=== PATIENT | female | born 1955 | race Caucasian/White ===

== ENCOUNTER 2020-05-17 14:45 | Inpatient (IN) | payer MEDICARE, MEDICAID ==
[~2020-05-17] VITALS: Ht 162.6 cm; Wt 86.6 kg
[2020-05-17 17:42] VITALS: BP 148/96
--- NOTE | 2020-05-17 17:45 | HPEPDOC ---
General Date of Admission 05/17/20 Date of Service: May 17, 2020 Chief Complaint The patient is a 64-year-old female admitted with a reason for visit of Kidney Stone. Source: Patient Exam Limitations: No limitations Timing/Duration: Day(s) Severity: Moderate History of Present Illness Patient is 64 years old female with past medical history of hyperlipidemia, nephrolithiasis, hypertension presented to the hospital with left flank pain. Patient stated that yesterday she developed left flank pain with radiation to the left lower abdominal quadrant associated with hematuria. Patient stated that she had nausea. Also patient had 1 episode of renal colic 15 years ago, stent was placed. In [facility] CT was done and showed 11 millimeters stone within the mid distal aspect of the left ureter, left-sided ureterohydronephro sis. There are nonobstructing stones within both kidneys. CBC showed no leukocytosis, hemoglobin 11.5. BMP showed creatinine 1. Past Medical History Medical History Hypertension, hyperlipidemia, diverticulitis, nephrolithiasis Surgical History Hysterectomy Family History I personally reviewed the history and found not pertinent Social History * Smoker: Denies Alcohol: Denies Drugs: denies A-FIB/CHADSVASC A-FIB History Current/History of A-Fib/PAF?: No Current PO Anticoag Therapy: No Review of Systems Constitutional: Denies: Chills, Fever Eyes: Denies: Pain ENT: Denies: Head Aches Skin: Denies: Rash Pulmonary: Denies: Dyspnea Cardiovascular: Denies: Chest Pain Gastrointestinal: Denies: Nausea, Vomiting Genitourinary: Reports: Dysuria, Frequency Hematologic: Denies: Bruising Endocrine: Denies: Polydipsia Musculoskeletal: Reports: Back Pain; Denies: Neck Pain Neurological: Denies: Weakness Psych: Reports: Mood Normal Physical Examination General Exam: Positive: Alert, Cooperative Eye Exam: Positive: PERRLA ENT Exam: Positive: Atraumatic Neck Exam: Positive: Supple; Negative: JVD Chest Exam: Positive: Clear to auscultation Heart Exam: Positive: Rate Normal Telemetry: Positive: No significant arrhythmia Abdomen Exam: Positive: Normal bowel sounds Extremity Exam: Negative: Clubbing Skin Exam: Positive: Nl turgor and temperature Psych Exam: Positive: Mental status NL Assessment/Plan Patient is 64 years old female with past medical history of hyperlipidemia, nephrolithiasis, hypertension presented to the hospital with left flank pain. Patient stated that yesterday she developed left flank pain with radiation to the left lower abdominal quadrant associated with hematuria. Patient stated that she had nausea. Also patient had 1 episode of renal colic 15 years ago, stent was placed. In [facility] CT was done and showed 11 millimeters stone within the mid distal aspect of the left ureter, left-sided ureterohydronephrosis. There are nonobstructing stones within both kidneys. CBC showed no leukocytosis, hemoglobin 11.5. BMP showed creatinine 1. Problems (1) Nephrolithiasis Status: Acute Problem Text: Patient was found to have 11 mm stone in left ureter with hydronephrosis Most likely patient will need stent placement Appreciate/agree with neurologist consult Pain management (2) Hypertension Status: Chronic Problem Text: Will continue home meds Plan / VTE VTE Prophylaxis Ordered?: Yes LUNA OLSON DO May 17, 2020 17:45
[2020-05-17] MEDS ORDERED: OXYC1TAB23 PO (18:11)
[2020-05-17] MEDS ORDERED: ATOR1TAB19 PO (18:11)
[2020-05-17] MEDS ORDERED: ASPI-161 PO (18:12)
[2020-05-17] MEDS: NS 1,000 ML IV SCH ×2 (18:15→20:46)
[2020-05-17 18:22] LABS: BASO % 0.8 % (0.0-1.0); EOS % 0.6 % (0.0-3.0); HEMATOCRIT 35.7 % (36.0-47.0); HEMOGLOBIN 11.1 g/dl (12.0-15.5); LYMPH # 0.8 10^3/uL (1.5-5.0); LYMPH % 14.7 % (24.0-44.0); MEAN CORPUSCULAR HEMOGLOBIN 27.9 pg (27.0-33.0); MEAN CORPUSCULAR HGB CONC 31.1 g/dl (32.0-36.5); MEAN CORPUSCULAR VOLUME 89.7 fl (80.0-96.0); MONO # 0.3 10^3/uL (0.0-0.8); MONO % 6.4 % (0.0-5.0); NEUTROPHILS # 4.1 10^3/uL (1.5-8.5); NEUTROPHILS % 77.3 % (36.0-66.0); PLATELET COUNT, AUTOMATED 277 10^3/uL (150-450); RED BLOOD COUNT 3.98 10^6/uL (4.00-5.40); WHITE BLOOD COUNT 5.3 10^3/uL (4.0-10.0)
[2020-05-17 18:36] LABS: CALCIUM LEVEL 8.9 MG/DL (8.8-10.2)
[2020-05-17] MEDS: CIPROFLOXACIN 250MG TAB PO SCH (18:41)
[2020-05-17 18:46] LABS: ALBUMIN 3.4 GM/DL (3.2-5.2); ALT/SGPT 19 U/L (12-78); BILIRUBIN,TOTAL 0.4 MG/DL (0.2-1.0); BLOOD UREA NITROGEN 16 MG/DL (7-18); CALCIUM LEVEL 8.9 MG/DL (8.8-10.2); CARBON DIOXIDE LEVEL 25 MEQ/L (21-32); CHLORIDE LEVEL 107 MEQ/L (98-107); CREATININE FOR GFR 0.82 MG/DL (0.55-1.30); GLOMERULAR FILTRATION RATE > 60.0 (>45); GLUCOSE, FASTING 100 MG/DL (70-100); SODIUM LEVEL 140 MEQ/L (136-145); TOTAL PROTEIN 6.3 GM/DL (6.4-8.2)
[2020-05-17 18:51] LABS: PTH INTACT 35.2 PG/ML (18.5-88.0)
--- NOTE | 2020-05-17 19:02 | SMCUROLCON ---
Urology Consultation General Date of Consultation 05/17/20 Reason For Consultation This patient is seen for Kidney Stone. History of Present Illness This is a 64 y/o F w/ a PMH significant for kidney stones and HL, transferred from [facility] this evening after presenting there w/ severe L lower abdominal pain yesterday evening. She was seen there on 05/11 w/ similar symptoms and was found to have an obstructing 11m distal left ureteral stone. Her pain got better and she was sent home. She notes that the pain recurred yesterday and was not controlled w/ pain medication. She had nausea but no vomiting. Denies dysuria, but has had some hematuria. No fevers or chills. Due to the pain and second trip to the ER in a few days, she was transferred over for treatment for her stone. At this time she has minimal to no pain. Her nausea has resolved. Past Medical History Medical History see HPI Surgical Hstory hysterectomy kidney stone surgery several years ago Medications Current Medications Current Medications Medications (Trade) Dose Ordered Sig/Lucia Route PRN Reason Start Time Stop Time Status Last Admin Dose Admin Acetaminophen (Tylenol Tab) 650 mg Q4H PRN PO PAIN OR FEVER 05/17/20 17:30 Ciprofloxacin (Cipro) 250 mg BID@06,18 PO 05/17/20 18:00 05/17/20 18:41 Enoxaparin Sodium (Lovenox) 40 mg DAILY SC 05/18/20 09:00 Home Med (Med Rec Complete!) ASDIRECTED XX 05/17/20 18:15 05/17/20 18:15 DC Ketorolac Tromethamine (ToRADol) 15 mg Q6H PRN IV PAIN 05/17/20 17:30 05/22/20 17:29 Sodium Chloride 1,000 ml @ 100 mls/hr Q10H IV 05/17/20 18:00 05/17/20 18:15 Allergies Allergies: Coded Allergies: No Known Allergies (Unverified , 05/17/20) Review of Systems Constitutional: Denies: Fever, Chills, Sweats, Weakness, Malaise Skin: Denies: Rash, Lesions, Breakdown, Nail Changes Pulmonary: Denies: Dyspnea, Cough Cardiovascular: Denies Chest Pain, Denies Palpitations Gastrointestinal: Reports: Nausea (resolved), Abdominal Pain (LLQ); Denies: Vomiting, Diarrhea, Constipation, Melena, Hematochezia, Other Symptoms Genitourinary: Reports: Hematuria; Denies: Dysuria, Frequency, Incontinence Musculoskeletal: Denies: Neck Pain, Back Pain Neurological: Denies: Weakness, Numbness, Incoordination, Change in Speech Psych: Reports: Mood Normal; Denies: Anxiety, Depression Physical Examination General Exam: Alert, Cooperative, No Acute Distress Chest Exam: Clear to auscultation Heart Exam: Rate Normal Abdomen Exam: Soft; No: Tenderness Skin Exam: Nl turgor and temperature; No: Rash, Breakdown Neuro Exam: Normal Speech Psych Exam: Mental status NL, Mood NL Vital Signs/I&O Vital Signs Date Time Temp Pulse Resp B/P (MAP) Pulse Ox O2 Delivery O2 Flow Rate FiO2 05/17/20 17:42 148/96 (113) 05/17/20 17:10 97.1 80 20 98 Laboratory Data 24H Labs Laboratory Tests 2 05/17/20 17:52: Immature Granulocyte % (Auto) 0.2, Neutrophils (%) (Auto) 77.3H, Lymphocytes (%) (Auto) 14.7L, Monocytes (%) (Auto) 6.4H, Eosinophils (%) (Auto) 0.6, Basophils (%) (Auto) 0.8, Neutrophils # (Auto) 4.1, Lymphocytes # (Auto) 0.8L, Monocytes # (Auto) 0.3, Eosinophils # (Auto) 0.0, Basophils # (Auto) 0.0, Nucleated Red Blood Cells % (auto) 0.0, Anion Gap 8, Glomerular Filtration Rate > 60.0, Calcium Level 8.9, Total Bilirubin 0.4, Aspartate Amino Transf (AST/SGOT) 12, Alanine Aminotransferase (ALT/SGPT) 19, Alkaline Phosphatase 75, Total Protein 6.3L, Albumin 3.4, Albumin/Globulin Ratio 1.2 CBC/BMP Laboratory Tests 05/17/20 17:52 Assessment This is a 64 y/o F transferred over from [facility] for recurrent renal colic 2/2 an obstructing 11mm distal L ureteral stone. Her pain is better controlled at this time. UA at [facility] was notable for multiple RBCs, a small amount of WBCs, but several bacteria. It was negative for nitrites. The patient we be taken to surgery tomorrow afternoon w/ Dr. Woods for either cysto w/ L ureteral stent placement or L ureteroscopy w/ laser lithotripsy. Plan - patient admitted to hospitalist service for pain control - COVID done at [facility] today and was negative - ok to eat tonight - NPO after midnight for surgery tomorrow GATITO RICE MD May 17, 2020 19:02
[2020-05-17 19:50] LABS: APPEARANCE, URINE CLEAR (CLEAR); BACTERIA, URINE AUTO NEGATIVE (NEGATIVE); BILIRUBIN, URINE AUTO NEGATIVE (NEGATIVE); BLOOD, URINE BLOOD NEGATIVE (NEGATIVE); COLOR, URINE STRAW (YELLOW); GLUCOSE, URINE (UA) AUTO NEGATIVE (NEGATIVE); KETONE, URINE AUTO 1+ mg/dL (NEGATIVE); LEUKOCYTE ESTERASE, URINE AUTO TRACE (NEGATIVE); MUCUS, URINE SMALL (NEGATIVE); NITRITE, URINE AUTO NEGATIVE (NEGATIVE); PROTEIN, URINE AUTO NEGATIVE (NEGATIVE); RBC, URINE AUTO 2 /HPF (0-3); SPECIFIC GRAVITY URINE AUTO 1.011 (1.002-1.035); SQUAMOUS EPITHELIAL CELL UR AU 0 /HPF (0-6); UROBILINOGEN, URINE AUTO 0.2 mg/dL (0.0-2.0); WBC, URINE AUTO 6 /HPF (0-3)
[2020-05-17] MEDS: KETOROLAC 30 MG/ML 1ML VIAL IV PRN (20:46)
[2020-05-17 22:00] VITALS: BP 138/90
[2020-05-18] VITALS (8 sets, daily range): BP systolic 116–166; BP diastolic 70–94
[2020-05-18] MEDS: PHENAZOPYRIDINE 100 MG TAB PO SCH ×4 (00:56→18:57)
[2020-05-18] MEDS: KETOROLAC 30 MG/ML 1ML VIAL IV PRN ×3 (02:25→22:59)
[2020-05-18] MEDS: CIPROFLOXACIN 250MG TAB PO SCH ×2 (06:19→18:38)
[2020-05-18 06:25] LABS: HEMATOCRIT 35.1 % (36.0-47.0); MEAN CORPUSCULAR HGB CONC 31.3 g/dl (32.0-36.5); MEAN CORPUSCULAR VOLUME 89.3 fl (80.0-96.0); PLATELET COUNT, AUTOMATED 274 10^3/uL (150-450); RED BLOOD COUNT 3.93 10^6/uL (4.00-5.40)
[2020-05-18 06:45] LABS: ALBUMIN 3.1 GM/DL (3.2-5.2); ALT/SGPT 19 U/L (12-78); BILIRUBIN,TOTAL 0.4 MG/DL (0.2-1.0); BLOOD UREA NITROGEN 13 MG/DL (7-18); CALCIUM LEVEL 8.4 MG/DL (8.8-10.2); CARBON DIOXIDE LEVEL 26 MEQ/L (21-32); CHLORIDE LEVEL 110 MEQ/L (98-107); CREATININE FOR GFR 0.78 MG/DL (0.55-1.30); GLOMERULAR FILTRATION RATE > 60.0 (>45); GLUCOSE, FASTING 89 MG/DL (70-100); MAGNESIUM LEVEL 1.9 MG/DL (1.8-2.4); POTASSIUM SERUM 3.8 MEQ/L (3.5-5.1); SODIUM LEVEL 144 MEQ/L (136-145); TOTAL PROTEIN 6.6 GM/DL (6.4-8.2)
[2020-05-18] MEDS: ENOXAPARIN 40MG/0.4ML SYRINGE (J1650 PER 10MG) SC SCH (07:26)
[2020-05-18] MEDS: NS 1,000 ML IV SCH ×2 (13:55→21:15)
[2020-05-18] MEDS ORDERED: MORPHINE 2 MG/ML 1ML VIAL (J2270) IV ONE (14:30)
[2020-05-18] MEDS ORDERED: MORPHINE 2 MG/ML 1ML VIAL (J2270) IV PRN (14:30)
[2020-05-18] MEDS ORDERED: CONRAY-60 60% 50ML VIAL (Q9961) As Ordered ONE (15:53)
[2020-05-18] MEDS ORDERED: propofoL 200 MG/20 ML VIAL As Ordered ONE (16:34)
[2020-05-18] MEDS ORDERED: LIDOCAINE 2% 100MG/5ML SDV (FOR ANES.) As Ordered ONE (16:34)
[2020-05-18] MEDS ORDERED: MIDAZOLAM INJ 2MG/2ML VIAL (J2250 PER 1MG) As Ordered ONE (16:34)
[2020-05-18] MEDS ORDERED: fentaNYL 100 MCG/2 ML INJECTION (J3010) As Ordered ONE ×3 (16:34→19:02)
--- NOTE | 2020-05-18 17:03 | IPNPDOC ---
Text Note Date of Service The patient was seen on 05/18/20. NOTE Subjective: No any acute events overnight. Patient denies fever, chills, nausea, vomiting, diarrhea or dysuria Objective: GENERAL APPEARANCE: NAD HEENT: no scleral icterus, no JVD, EOMI CARDIOVASCULAR: S1S2 LUNGS: CTA ABDOMEN: soft & not tender w palpitation MUSCULOSKELETAL: no cyanosis, no swelling INTEGUMENT: no generalized pallor NEUROLOGICAL: cranial nerve function from 2-12 intact intact, follows commands, speech not dysarthric Assessment/Plan Patient is 64 years old female with past medical history of hyperlipidemia, nephrolithiasis, hypertension presented to the hospital with left flank pain. Patient stated that yesterday she developed left flank pain with radiation to the left lower abdominal quadrant associated with hematuria. Patient stated that she had nausea. Also patient had 1 episode of renal colic 15 years ago, stent was placed. In [facility] CT was done and showed 11 millimeters stone within the mid distal aspect of the left ureter, left-sided ureterohydronephrosis. There are nonobstructing stones within both kidneys. CBC showed no leukocytosis, hemoglobin 11.5. BMP showed creatinine 1. Problems (1) Nephrolithiasis Patient was found to have 11 mm stone in left ureter with hydronephrosis Most likely patient will need stent placement Plan: stent placement by urology team today Pain management (2) Hypertension continue home meds VS,Fishbone, I+O VS, Fishbone, I+O Laboratory Tests 05/17/20 17:52 05/18/20 05:51 Vital Signs Date Time Temp Pulse Resp B/P (MAP) Pulse Ox O2 Delivery O2 Flow Rate FiO2 05/18/20 14:45 16 Room Air 05/18/20 14:00 97.4 72 137/86 (103) 95 I&O- Last 24 Hours up to 6 AM 05/18/20 06:00 Intake Total 1860 ml Output Total 1950 ml Balance -90 ml LUNA OLSON DO May 18, 2020 17:03
[2020-05-18] MEDS ORDERED: dexameTHASONE 4 MG/ML 1ML VIAL (J1100 PER 1MG) As Ordered ONE ×2 (17:13→17:14)
[2020-05-18] MEDS ORDERED: ONDANSETRON 4MG/2ML VIAL As Ordered ONE ×2 (17:13→18:37)
[2020-05-18] MEDS ORDERED: KETOROLAC 60MG 2ML VIAL As Ordered ONE (17:13)
[2020-05-18] MEDS ORDERED: FLUORESCEIN 10% (100MG/ML) 5 ML VIAL As Ordered ONE (17:15)
--- NOTE | 2020-05-18 18:33 | ROOPDOC ---
[facility] Report Of Operation Report of Operation DATE OF PROCEDURE: 05/18/20 PREPROCEDURE DIAGNOSES: 11 mm distal left ureteral stone POSTPROCEDURE DIAGNOSES: Same PROCEDURE: Cystoscopy, left ureteroscopy, laser lithotripsy, and placement of 6 Tamazight universal stent SURGEON: Mercedez Peraza MD [employer] ATTENDANT: None ANESTHESIA: General ESTIMATED BLOOD LOSS: Approximately 5 mL. COMPLICATIONS: None REMARKS: Very large stone PROCEDURE NOTE: The patient was transferred from [facility] with complaints of severe left flank pain found to have an 11 millimeter distal left ureteral calculus. The patient had been seen back in January and the stone was much smaller at that time in the same place. After discussing all different options, alternatives, risks, benefits it was decided to bring her to the operating room for laser lithotripsy and stent placement. DESCRIPTION OF PROCEDURE: The patient was brought into the operating room and she had sequential compression devices placed and had been on Cipro preoperatively. General anesthesia was induced. She was placed in the lithotomy position and careful attention was paid that her pressure points were well- padded and protected. She was prepped and draped in usual fashion. A 21 Tamazight cystoscope was inserted and the urethra was noted to be normal without any lesions or strictures. Upon entering the bladder there was significant gross hematuria and irritation throughout the bladder. It was difficult to see the ureteral orifices so fluorescein was given. When the left ureteral orifice was seen and a guidewire was placed under fluoroscopy and then a second wire was placed. One wire was left as a safety wire. A rigid ureteroscope was placed over the second wire and the stone was easily visualized. The stone was then treated with laser lithotripsy until multiple small fragments were formed. Because there was so much ureteral irritation and because of where this was it was decided not to basket any of the fragments. At this point a 6 Tamazight double-J ureteral stent was placed with a good curl seen in the left renal pelvis by fluoroscopy. The patient tolerated the procedure well and was returned to the recovery room in stable condition. She will need to come to the office for cystoscopy and stent removal in several weeks. MERCEDEZ PERAZA MD May 18, 2020 18:33
[2020-05-18] MEDS ORDERED: oxyCODONE 5MG TAB As Ordered ONE (18:37)
[2020-05-18] MEDS ORDERED: PHENAZOPYRIDINE 100 MG TAB As Ordered ONE (18:56)
[2020-05-18] MEDS ORDERED: fentaNYL 100 MCG/2 ML INJECTION (J3010) IV PRN ×2 (19:00→20:30)
[2020-05-18] MEDS ORDERED: ONDANSETRON 4MG/2ML VIAL IV PRN ×2 (19:00→20:45)
[2020-05-18] MEDS ORDERED: oxyCODONE 5MG TAB PO PRN ×2 (19:00→20:30)
[2020-05-18] MEDS ORDERED: LR 1,000 ML IV SCH ×2 (19:00→20:30)
[2020-05-18] MEDS ORDERED: DOCUSATE SODIUM 100MG CAPSULE PO ONE (22:30)
[2020-05-18] MEDS ORDERED: PHENAZOPYRIDINE 100 MG TAB PO ONE (23:30)
[2020-05-19 00:40] VITALS: BP 112/61
[2020-05-19] MEDS: ACETAMINOPHEN TAB 650MG DOSE (2X325MG) PO PRN ×2 (03:43→08:34)
[2020-05-19 06:00] VITALS: BP 112/62
[2020-05-19] MEDS: NS 1,000 ML IV SCH (06:30)
[2020-05-19] MEDS: CIPROFLOXACIN 250MG TAB PO SCH (06:31)
[2020-05-19] MEDS: KETOROLAC 30 MG/ML 1ML VIAL IV PRN (06:31)
[2020-05-19 07:00] LABS: HEMATOCRIT 35.2 % (36.0-47.0); HEMOGLOBIN 11.1 g/dl (12.0-15.5); MEAN CORPUSCULAR HEMOGLOBIN 28.3 pg (27.0-33.0); MEAN CORPUSCULAR HGB CONC 31.5 g/dl (32.0-36.5); MEAN CORPUSCULAR VOLUME 89.8 fl (80.0-96.0); PLATELET COUNT, AUTOMATED 272 10^3/uL (150-450); RED BLOOD COUNT 3.92 10^6/uL (4.00-5.40); WHITE BLOOD COUNT 10.7 10^3/uL (4.0-10.0)
[2020-05-19 07:23] LABS: CALCIUM LEVEL 8.7 MG/DL (8.8-10.2); CREATININE FOR GFR 1.05 MG/DL (0.55-1.30); POTASSIUM SERUM 3.9 MEQ/L (3.5-5.1)
[2020-05-19] MEDS: ENOXAPARIN 40MG/0.4ML SYRINGE (J1650 PER 10MG) SC SCH (08:34)
[2020-05-19] MEDS: PHENAZOPYRIDINE 100 MG TAB PO SCH (08:34)
[2020-05-19 10:14] VITALS: BP 108/67
[2020-05-19] MEDS ORDERED: traMADol 50 MG TAB PO ONE (10:15)
[2020-05-19] MEDS ORDERED: [UNRECOGNIZED DRUG - CODE] PO (11:04)
[2020-05-19] MEDS ORDERED: CEPH250T PO (11:55)
--- NOTE | 2020-05-19 14:23 | DS.PDOC ---
Discharge Summary General Date of Admission May 17, 2020 at 16:56 Date of Discharge 05/19/20 Discharge Summary PROCEDURES PERFORMED DURING STAY: Left ureteroscopy, stent placement ADMITTING DIAGNOSES: Nephrolithiasis Hypertension DISCHARGE DIAGNOSES: Nephrolithiasis Hypertension COMPLICATIONS/CHIEF COMPLAINT: Kidney Stone. HISTORY OF PRESENT ILLNESS: Patient is 64 years old female with past medical history of hyperlipidemia, nephrolithiasis, hypertension presented to the hospital with left flank pain. Patient stated that yesterday she developed left flank pain with radiation to the left lower abdominal quadrant associated with hematuria. Patient stated that she had nausea. Also patient had 1 episode of renal colic 15 years ago, stent was placed. In [facility] CT was done and showed 11 millimeters stone within the mid distal aspect of the left ureter, left-sided ureterohydronephrosis. There are nonobstructing stones within both kidneys. CBC showed no leukocytosis, hemoglobin 11.5. BMP showed creatinine 1. HOSPITAL COURSE: During hospital stay following issue addressed (1) Nephrolithiasis Patient was found to have 11 mm stone in left ureter with hydronephrosis stent was placed by urology team yesterday, stone was removed Pain management (2) Hypertension continue home meds DISCHARGE MEDICATIONS: Please see below. ALLERGIES: Please see below. PHYSICAL EXAMINATION ON DISCHARGE: VITAL SIGNS: Please see below. GENERAL APPEARANCE: NAD HEENT: no scleral icterus, no JVD, EOMI CARDIOVASCULAR: S1S2 LUNGS: CTA ABDOMEN: soft & not tender w palpitation MUSCULOSKELETAL: no cyanosis, no swelling INTEGUMENT: no generalized pallor NEUROLOGICAL: cranial nerve function from 2-12 intact intact, follows commands, speech not dysarthric LABORATORY DATA: Please see below. Procedure: PREPROCEDURE DIAGNOSES: 11 mm distal left ureteral stone POSTPROCEDURE DIAGNOSES: Same PROCEDURE: Cystoscopy, left ureteroscopy, laser lithotripsy, and placement of 6 Latvian universal stent SURGEON: Mercedez Woods MD RECORD SYSTEMS ANALYST: None ANESTHESIA: General ESTIMATED BLOOD LOSS: Approximately 5 mL. COMPLICATIONS: None REMARKS: Very large stone PROCEDURE NOTE: The patient was transferred from [facility] with complaints of severe left flank pain found to have an 11 millimeter distal left ureteral calculus. The patient had been seen back in January and the stone was much smaller at that time in the same place. After discussing all different options, alternatives, risks, benefits it was decided to bring her to the operating room for laser lithotripsy and stent placement. DESCRIPTION OF PROCEDURE: The patient was brought into the operating room and s he had sequential compression devices placed and had been on Cipro preoperatively. General anesthesia was induced. She was placed in the lithotomy position and careful attention was paid that her pressure points were well- padded and protected. She was prepped and draped in usual fashion. A 21 Latvian cystoscope was inserted and the urethra was noted to be normal without any lesions or strictures. Upon entering the bladder there was significant gross hematuria and irritation throughout the bladder. It was difficult to see the ureteral orifices so fluorescein was given. When the left ureteral orifice was seen and a guidewire was placed under fluoroscopy and then a second wire was placed. One wire was left as a safety wire. A rigid ureteroscope was placed over the second wire and the stone was easily visualized. The stone was then treated with laser lithotripsy until multiple small fragments were formed. Because there was so much ureteral irritation and because of where this was it was de cided not to basket any of the fragments. At this point a 6 Latvian double-J ureteral stent was placed with a good curl seen in the left renal pelvis by fluoroscopy. The patient tolerated the procedure well and was returned to the recovery room in stable condition. She will need to come to the office for cystoscopy and stent removal in several weeks. PROGNOSIS: Fair ACTIVITY: [As tolerated]. DIET: Cardiac DISPOSITION: 01 Home, Self-Care. ITEMS TO FOLLOWUP ON ON OUTPATIENT: Follow-up with urologist DISCHARGE CONDITION: [Stable]. TIME SPENT ON DISCHARGE: Greater than minutes. Vital Signs/I&Os Vital Signs Date Time Temp Pulse Resp B/P (MAP) Pulse Ox O2 Delivery O2 Flow Rate FiO2 05/19/20 10:46 17 Room Air 05/19/20 10:14 97.9 100 108/67 (81) 93 05/18/20 18:33 3 I&O- Last 24 Hours up to 6 AM 05/19/20 06:00 Intake Total 2655 ml Output Total 2450 ml Balance 205 ml Laboratory Data Labs 24H Laboratory Tests 2 05/19/20 06:32: Nucleated Red Blood Cells % (auto) 0.0, Anion Gap 10, Glomerular Filtration Rate 56.0, Calcium Level 8.7L CBC/BMP Laboratory Tests 05/19/20 06:32 Microbiology Microbiology 05/17/20 Urine Culture - Final, Complete Escherichia Coli Discharge Medications Scheduled Aspirin (Aspirin EC) 81 Mg Tablet.dr, 81 MG PO DAILY, (Reported) Atorvastatin Calcium (Atorvastatin Calcium) 10 Mg Tablet, 10 MG PO DAILY, (Reported) Cephalexin (Cephalexin) 250 Mg Tablet, 250 MG PO QID Scheduled PRN Oxycodone HCl/Acetaminophen (Oxycodone-Acetaminophen 5-325) 1 Each Tablet, 1 TAB PO TID PRN for PAIN, (Reported) Allergies Coded Allergies: No Known Allergies (Unverified , 05/17/20) LUNA OLSON DO May 19, 2020 14:23
[2020-05-20] MEDS ORDERED: CEPH250T PO (06:42)
[2020-05-20] MEDS ORDERED: CIPR-249 PO (06:55)
== END 2020-05-19 12:09 | disposition home or self-care (01) | DRG 661 ==
LOC: M MSPAV 16:56
PROVIDERS: ADMIT Internal Medicine; ATTEND Internal Medicine
PROC: 0T778DZ Dilation of Left Ureter with Intraluminal Device, Via Natural or Artificial Opening Endoscopic (ICD-10-PCS; principal; 2020-05-18 16:00)
DX: N13.2 Hydronephrosis with renal and ureteral calculous obstruction (principal); I10 Essential (primary) hypertension; E78.5 Hyperlipidemia, unspecified; Z79.82 Long term (current) use of aspirin; Z79.899 Other long term (current) drug therapy; K57.30 Diverticulosis of large intestine without perforation or abscess without bleeding

== ENCOUNTER 2020-05-20 05:05 | Inpatient (IN) | payer MEDICARE, MEDICAID ==
[~2020-05-20] VITALS: Ht 162.6 cm; Wt 88.9 kg
[~2020-05-20 05:05] MED LIST: ASPI-161 PO; ATOR1TAB19 PO; CEPH250T PO; OXYC1TAB23 PO; [UNRECOGNIZED DRUG - CODE] PO
[2020-05-20 06:22] VITALS: BP 156/71
[2020-05-20] MEDS ORDERED: CEPH250T PO (06:42)
[2020-05-20] MEDS ORDERED: NS 1,000 ML IV SCH (06:45)
[2020-05-20] MEDS ORDERED: ONDANSETRON 4MG/2ML VIAL IV PRN (06:45)
[2020-05-20] MEDS ORDERED: MORPHINE 2 MG/ML 1ML VIAL (J2270) IV PRN (06:45)
[2020-05-20] MEDS ORDERED: CIPR-249 PO (06:55)
[2020-05-20] MEDS: KCL 20MEQ in NS 1000ML 1,000 ML IV SCH ×3 (08:41→21:28)
[2020-05-20] MEDS: ACETAMINOPHEN TAB 650MG DOSE (2X325MG) PO PRN (08:42)
[2020-05-20] MEDS: ENOXAPARIN 40MG/0.4ML SYRINGE (J1650 PER 10MG) SC SCH (08:42)
[2020-05-20 09:29] LABS: HEMATOCRIT 32.9 % (36.0-47.0); HEMOGLOBIN 10.2 g/dl (12.0-15.5); MEAN CORPUSCULAR HEMOGLOBIN 27.9 pg (27.0-33.0); MEAN CORPUSCULAR VOLUME 89.9 fl (80.0-96.0); PLATELET COUNT, AUTOMATED 272 10^3/uL (150-450); RED BLOOD COUNT 3.66 10^6/uL (4.00-5.40); WHITE BLOOD COUNT 11.1 10^3/uL (4.0-10.0)
[2020-05-20 10:00] VITALS: BP 108/51
[2020-05-20 10:08] LABS: ALBUMIN 2.8 GM/DL (3.2-5.2); ALT/SGPT 17 U/L (12-78); BILIRUBIN,TOTAL 0.6 MG/DL (0.2-1.0); BLOOD UREA NITROGEN 8 MG/DL (7-18); CALCIUM LEVEL 8.3 MG/DL (8.8-10.2); CARBON DIOXIDE LEVEL 22 MEQ/L (21-32); CHLORIDE LEVEL 106 MEQ/L (98-107); CREATININE FOR GFR 0.74 MG/DL (0.55-1.30); GLOMERULAR FILTRATION RATE > 60.0 (>45); GLUCOSE, FASTING 110 MG/DL (70-100); POTASSIUM SERUM 3.8 MEQ/L (3.5-5.1); SODIUM LEVEL 138 MEQ/L (136-145)
[2020-05-20] MEDS: traMADol 50 MG TAB PO PRN ×2 (11:38→21:29)
[2020-05-20 14:00] VITALS: BP 158/81
--- NOTE | 2020-05-20 16:46 | HPE ---
HISTORY AND PHYSICAL DATE OF ADMISSION: 05/20/2020 HISTORY OF PRESENT ILLNESS: Mercedez Harvey was transferred from [facility] with left pyelonephritis, apparently transferred for urologic evaluation. She was recently admitted to [facility] 05/17 to 05/19/2020 with left ureteral stones, status post stenting by urology. The stone was removed. She was discharged on Keflex. Urine culture grew out E. coli that was sensitive to cephalosporins. Hospital course was relatively uncomplicated. The patient was afebrile on discharge. After she got home, she developed fever, chills, headache, brought to the emergency room in [facility] and transferred back to [facility]. CT scan of the abdomen and pelvis at [facility]. It showed multiple liver cysts, unremarkable gallbladder, left-sided ureteral stent, proximal tip within the left renal collecting system. Distal tip within the urinary bladder. No evidence of stone. Several small non-obstructing stones seen in both kidneys. There was no hydronephrosis. Patchy areas of increased density of both lower lobes and right middle lobe, possible pneumonia (the patient has no pulmonary symptoms). Urinalysis showed a high number of white cells, as well as a moderate amount of bacteria. COVID screen was negative. White count was not significantly elevated. She was transferred here for urologic care. PAST MEDICAL HISTORY: 1. Hypertensive heart disease. 2. Hyperlipidemia. 3. History of diverticulitis. 4. Renal cell surgical history. 5. Hysterectomy. FAMILY HISTORY: Negative for stones. SOCIAL HISTORY: Does not smoke, drink any alcohol. HOME MEDICATIONS: Keflex 250 mg q.i.d., atorvastatin 10 mg daily, aspirin 10 mg daily, Percocet as needed for pain. ALLERGIES: None known. REVIEW OF SYSTEMS: No cough, wheeze, hemoptysis, shortness of breath. She has left flank pain. She denies fevers and chills. She denies nausea or vomiting currently, though she had some in hospital, [facility]. No chest pain or palpitations. PHYSICAL EXAMINATION: Vital signs per flow sheet. She is alert, oriented, conversant, in no distress.HEENT unremarkable. Lungs clear. Heart: Regular rate and rhythm . Abdomen soft, nontender. Left costovertebral angle (CVA) tenderness present. Extremities: No clubbing, cyanosis or edema. No warmth and no swelling of her joints. LABORATORY DATA: Labs were all pending. Lactic acid in [facility] was normal. Potassium was low at 3.2. Creatinine was 1.0. White count was 10.7. Hemoglobin 11. Platelets 262. She had shift to the left with 82 neutrophils and 8 bands. IMPRESSION: 1. Suspected left pyelonephritis. Her previous urine culture grew out E. coli that was sensitive to cephazolin, as well as other cephalosporin. I will put her on 2 gm of Rocephin today. Provide her IV hydration and analgesia. 2. Hypertension. She is not on any current antihypertensive. 3. Hyperlipidemia. Continue atorvastatin 10 mg daily. 4. Headache. She has a headache; I think it is from the infection. I ordered Tylenol for mild pain and some [place] for more severe pain.
[2020-05-20 18:00] VITALS: BP 156/98
[2020-05-20] MEDS: ATORVASTATIN 10 MG TAB PO SCH (21:29)
[2020-05-20 22:00] VITALS: BP 148/71
[2020-05-21] MEDS: ACETAMINOPHEN TAB 650MG DOSE (2X325MG) PO PRN (01:47)
[2020-05-21] MEDS: KCL 20MEQ in NS 1000ML 1,000 ML IV SCH ×3 (04:11→19:51)
[2020-05-21 06:00] VITALS: BP 116/68
[2020-05-21 06:56] LABS: BASO % 0.4 % (0.0-1.0); EOS # 0.1 10^3/uL (0.0-0.5); EOS % 1.1 % (0.0-3.0); HEMATOCRIT 30.4 % (36.0-47.0); HEMOGLOBIN 9.5 g/dl (12.0-15.5); LYMPH # 0.9 10^3/uL (1.5-5.0); LYMPH % 11.3 % (24.0-44.0); MEAN CORPUSCULAR HEMOGLOBIN 28.4 pg (27.0-33.0); MEAN CORPUSCULAR HGB CONC 31.3 g/dl (32.0-36.5); MEAN CORPUSCULAR VOLUME 90.7 fl (80.0-96.0); MONO # 0.4 10^3/uL (0.0-0.8); MONO % 5.4 % (0.0-5.0); NEUTROPHILS # 6.6 10^3/uL (1.5-8.5); NEUTROPHILS % 81.2 % (36.0-66.0); PLATELET COUNT, AUTOMATED 259 10^3/uL (150-450); RED BLOOD COUNT 3.35 10^6/uL (4.00-5.40); WHITE BLOOD COUNT 8.2 10^3/uL (4.0-10.0)
[2020-05-21 07:15] LABS: BLOOD UREA NITROGEN 7 MG/DL (7-18); CALCIUM LEVEL 8.1 MG/DL (8.8-10.2); CARBON DIOXIDE LEVEL 26 MEQ/L (21-32); CHLORIDE LEVEL 110 MEQ/L (98-107); GLOMERULAR FILTRATION RATE > 60.0 (>45); GLUCOSE, FASTING 118 MG/DL (70-100); SODIUM LEVEL 141 MEQ/L (136-145)
[2020-05-21] MEDS: ENOXAPARIN 40MG/0.4ML SYRINGE (J1650 PER 10MG) SC SCH (08:28)
[2020-05-21] MEDS: cefTRIAXone SOD 2 GM in D5W MINI-BAG PLUS 50 ML IV SCH (08:28)
[2020-05-21] MEDS: traMADol 50 MG TAB PO PRN (08:28)
[2020-05-21] MEDS: SENOKOT S TAB PO SCH ×2 (09:00→19:51)
[2020-05-21 10:00] VITALS: BP 138/86
[2020-05-21] MEDS: MIRALAX *UNIT DOSE* 17GM PACKET PO SCH ×2 (10:57→19:50)
[2020-05-21 14:00] VITALS: BP 132/80
[2020-05-21] MEDS: ATORVASTATIN 10 MG TAB PO SCH (19:50)
[2020-05-21 22:00] VITALS: BP 145/74
--- NOTE | 2020-05-21 22:28 | IPN ---
PROGRESS NOTE DATE: 05/21/2020 SUBJECTIVE: Mercedez's pyelonephritis; we are waiting for a urine culture to come back. It was done at [facility], and I will call there today. Dr. Lozoya and I discussed her case informally. There is no urologist needed. The stent is functioning normally. There really was no need for urologic assessment as the reason for transfer. Patient is constipated today. PHYSICAL EXAMINATION: Vital signs stable, afebrile. Lungs clear. Heart regular rhythm. Abdomen soft, nontender. No CVA tenderness. LABORATORY DATA: CBC: White count down to 8.2. Renal function is normal. IMPRESSION: 1. Pyelonephritis: I will call [facility] and get a copy of the culture result and taper her antibiotic therapy to that. 2. Constipation: Bowel care ordered.
[2020-05-22 02:00] VITALS: BP 142/90
[2020-05-22 06:00] VITALS: BP 153/70
[2020-05-22] MEDS: KCL 20MEQ in NS 1000ML 1,000 ML IV SCH ×2 (06:22→08:11)
[2020-05-22 06:34] LABS: BASO % 0.6 % (0.0-1.0); EOS # 0.2 10^3/uL (0.0-0.5); EOS % 2.8 % (0.0-3.0); HEMATOCRIT 33.4 % (36.0-47.0); HEMOGLOBIN 10.5 g/dl (12.0-15.5); LYMPH # 0.9 10^3/uL (1.5-5.0); LYMPH % 13.8 % (24.0-44.0); MEAN CORPUSCULAR HEMOGLOBIN 27.9 pg (27.0-33.0); MEAN CORPUSCULAR HGB CONC 31.4 g/dl (32.0-36.5); MEAN CORPUSCULAR VOLUME 88.6 fl (80.0-96.0); MONO # 0.5 10^3/uL (0.0-0.8); NEUTROPHILS # 5.1 10^3/uL (1.5-8.5); NEUTROPHILS % 74.8 % (36.0-66.0); PLATELET COUNT, AUTOMATED 317 10^3/uL (150-450); RED BLOOD COUNT 3.77 10^6/uL (4.00-5.40); WHITE BLOOD COUNT 6.8 10^3/uL (4.0-10.0)
[2020-05-22 06:54] LABS: BLOOD UREA NITROGEN 7 MG/DL (7-18); CALCIUM LEVEL 8.3 MG/DL (8.8-10.2); CARBON DIOXIDE LEVEL 27 MEQ/L (21-32); CHLORIDE LEVEL 108 MEQ/L (98-107); CREATININE FOR GFR 0.67 MG/DL (0.55-1.30); GLOMERULAR FILTRATION RATE > 60.0 (>45); GLUCOSE, FASTING 90 MG/DL (70-100); POTASSIUM SERUM 4.3 MEQ/L (3.5-5.1); SODIUM LEVEL 141 MEQ/L (136-145)
[2020-05-22] MEDS: ENOXAPARIN 40MG/0.4ML SYRINGE (J1650 PER 10MG) SC SCH (08:11)
[2020-05-22] MEDS: SENOKOT S TAB PO SCH (08:11)
[2020-05-22] MEDS: cefTRIAXone SOD 2 GM in D5W MINI-BAG PLUS 50 ML IV SCH (08:11)
[2020-05-22] MEDS: MIRALAX *UNIT DOSE* 17GM PACKET PO SCH (08:11)
[2020-05-22] MEDS ORDERED: CEPH500C PO (09:54)
[2020-05-22 10:00] VITALS: BP 139/84
[2020-05-22] MEDS ORDERED: BISACODYL ENEMA 10 MG/30 ML PR ONE (10:00)
--- NOTE | 2020-05-22 11:16 | DSES ---
DISCHARGE SUMMARY DATE OF ADMISSION: 05/20/2020 DATE OF DISCHARGE: 05/22/2020 ADMISSION DIAGNOSIS: Left pyelonephritis. HISTORY: Mercedez Harvey is a 64-year-old who was transferred from [facility] with left pyelonephritis. Details are on the History and Physical. HOSPITAL COURSE: The patient was transferred from [facility] for a urology consultation. She had recently been discharged after having a stone on the left side and had a stent. The stent was functioning normally, there was no hydronephrosis nor any stone in the stent so there really was no need for urologic consultation (I did discuss the case informally with Dr. Woods, she saw the patient informally, but she agreed that there was no urologic intervention needed). So essentially, we just treated her pyelonephritis here. She was on IV antibiotic with Rocephin 2 grams IV daily. Today, I called [facility] and the urine culture is back, it is E. coli sensitive to cefazolin; so she will be discharged on that. She is constipated today. She will be discharged after she receives bowel care. PHYSICAL EXAMINATION: On the day of discharge, she is resting comfortably. She is afebrile. Vital signs are stable. Lungs clear. Heart regular rhythm. Abdomen soft and nontender. No peripheral edema. Mild CVA tenderness. SIGNIFICANT LABORATORY DATA: Urinary culture is E. coli sensitive to cefazolin per telephone call to the lab at [facility]. White count today is 6.8, hemoglobin 10.5, platelets 317,000. Sodium 141, potassium 4.3, BUN 7, creatinine 0.6, glucose 90. DISCHARGE DISPOSITION: Discharged home in improved and stable condition. Follow-up with her primary care provider in a week. Activity as tolerated. She is on a regular diet. She will push fluids to avoid recurrence of renal stones. She will follow-up with Dr. Woods for a previously arranged follow-up appointment. DISCHARGE MEDICATIONS: 1. Atorvastatin 10 mg daily. 2. Tylenol as needed for pain. 3. Cephalexin 500 mg b.i.d. for 10 days.
== END 2020-05-22 11:31 | disposition home or self-care (01) | DRG 690 ==
LOC: M MSPAV 06:29
PROVIDERS: ADMIT Family Medicine; ATTEND Family Medicine
DX: N12 Tubulo-interstitial nephritis, not specified as acute or chronic (principal); K59.00 Constipation, unspecified; I11.9 Hypertensive heart disease without heart failure; E78.5 Hyperlipidemia, unspecified; B96.29 Other Escherichia coli [E. coli] as the cause of diseases classified elsewhere

== ENCOUNTER 2020-07-17 14:34 | Inpatient (IN) | payer MEDICARE, MEDICAID ==
[~2020-07-17] VITALS: Ht 160 cm; Wt 90.2 kg
[~2020-07-17 14:34] MED LIST changes: +CEPH500C PO; +CIPR-249 PO
[2020-07-17 16:50] VITALS: BP 126/68
[2020-07-17] MEDS ORDERED: ACET1TAB55 PO (17:02)
[2020-07-17] MEDS ORDERED: CONRAY-60 60% 50ML VIAL (Q9961) As Ordered ONE (17:02)
[2020-07-17] MEDS ORDERED: ZOSY1SOL5 IV (17:02)
[2020-07-17] MEDS ORDERED: SULF1TAB93 PO (17:02)
[2020-07-17] MEDS ORDERED: PIPERACILLIN/TAZOBACTAM SOD 3.375 GM in D5W MINI-BAG PLUS 50 ML IV ONE (17:25)
--- NOTE | 2020-07-17 17:30 | SMCUROLCON ---
Urology Consultation General Date of Consultation 07/17/20 Reason For Consultation This patient is seen for Sepsis/Obstructive Uropathy. History of Present Illness This is a 65 y/o F w/ a PMH significant for kidney stones and HL, transferred from [facility] for an obstructing L ureteral stone and sepsis due to a UTI. She notes that she started having L flank pain and fevers and chills 2 nights ago. They progressively worsened. She has also had nausea and no vomiting. Blood cultures from [facility] were notable for GNR. Her CT was notable for a 3-4mm distal obstructing L ureteral stone. She notes that her pain is a little better, but she still feels pretty sick. She received a dose of zosyn prior to transfer here. Past Medical History Medical History HL, kidney stones Surgical Hstory ureteroscopy with laser lithotripsy, ESWL Medications Current Medications Current Medications Medications (Trade) Dose Ordered Sig/Lucia Route PRN Reason Start Time Stop Time Status Last Admin Dose Admin Home Med (Med Rec Complete!) ASDIRECTED XX 07/17/20 17:05 07/17/20 17:06 TX Allergies Allergies: Coded Allergies: No Known Allergies (Unverified , 05/17/20) Review of Systems Constitutional: Reports: Fever, Chills, Weakness Skin: Denies: Rash, Lesions, Breakdown, Nail Changes Pulmonary: Denies: Dyspnea, Cough Cardiovascular: Denies Chest Pain, Denies Palpitations Gastrointestinal: Reports: Nausea; Denies: Vomiting, Other Symptoms Genitourinary: Denies: Dysuria, Frequency, Incontinence, Hematuria Musculoskeletal: Reports: Back Pain (left flank) Neurological: Denies: Weakness, Numbness, Incoordination, Change in Speech Psych: Reports: Mood Normal; Denies: Anxiety, Depression Physical Examination General Exam: Alert, Cooperative Chest Exam: Normal air movement Heart Exam: Rate Normal Abdomen Exam: Soft, Tenderness (LLQ) Skin Exam: Nl turgor and temperature Neuro Exam: Normal Speech Psych Exam: Mental status NL, Mood NL Vital Signs/I&O Vital Signs Date Time Temp Pulse Resp B/P (MAP) Pulse Ox O2 Delivery O2 Flow Rate FiO2 07/17/20 16:50 98.7 96 20 126/68 (87) 97 Room Air Assessment This is a 65 y/o F transferred from [facility] for an obstructing distal L ureteral stone and sepsis due to a UTI. I recommended that we take her to the OR now for cystoscopy, L ureteroscopy w/ basket extraction of stones, and L ureteral stent placement. After a discussion of the risks and benefits of the procedure, informed consent was signed. Plan - informed consent signed - to OR now - will give another dose of zosyn now - NPO - may resume regular diet postop GATITO RICE MD Jul 17, 2020 17:30
[2020-07-17] MEDS ORDERED: ZOSYN 3.375GM VIAL (J2543) As Ordered ONE (17:31)
[2020-07-17] MEDS ORDERED: SUCCINYLCHOLINE 100 MG/5 ML SYRINGE (J0330) As Ordered ONE (17:42)
[2020-07-17] MEDS ORDERED: ONDANSETRON 4MG/2ML VIAL As Ordered ONE (17:42)
[2020-07-17] MEDS ORDERED: propofoL 200 MG/20 ML VIAL As Ordered ONE (17:42)
[2020-07-17] MEDS ORDERED: LIDOCAINE 2% 100MG/5ML SDV (FOR ANES.) As Ordered ONE (17:42)
[2020-07-17] MEDS ORDERED: MIDAZOLAM INJ 2MG/2ML VIAL (J2250 PER 1MG) As Ordered ONE (17:42)
[2020-07-17] MEDS ORDERED: PHENYLephrine 500MCG 5ML (100MCG/ML) SYRINGE As Ordered ONE ×2 (17:42→17:59)
[2020-07-17] MEDS ORDERED: ROCURONIUM BROMIDE 50 MG/5 ML VIAL As Ordered ONE (17:42)
[2020-07-17] MEDS ORDERED: ACETAMINOPHEN 1000MG 100ML IV BTL (OFIRMEV) (J0131 PER 10MG) As Ordered ONE (17:42)
[2020-07-17] MEDS ORDERED: fentaNYL 100 MCG/2 ML INJECTION (J3010) As Ordered ONE ×2 (17:42→18:05)
[2020-07-17] MEDS ORDERED: dexameTHASONE 4 MG/ML 1ML VIAL (J1100 PER 1MG) As Ordered ONE (17:42)
--- NOTE | 2020-07-17 18:20 | REP ---
INDICATION: URETERAL STONE. COMPARISON: None. TECHNIQUE: Two C-arm views abdomen and pelvis. FINDINGS: A left ureteral stent is placed. The proximal end is coiled in the left renal pelvis and the distal end is coiled in the urinary bladder. Contrast partially opacifies a mildly dilated left pelvocaliceal system. IMPRESSION: 21 seconds fluoroscopy time utilized. <Electronically signed by Mahesh Antunez > 07/17/20 [id number]
[2020-07-17] MEDS ORDERED: ONDANSETRON 4MG/2ML VIAL IV PRN (18:40)
[2020-07-17] MEDS ORDERED: LR 1,000 ML IV SCH (18:40)
[2020-07-17] MEDS ORDERED: MAALOX 30 ML SUSP *UDC PO PRN (18:40)
[2020-07-17] MEDS ORDERED: MOM 30ML SUSPENSION UDC PO PRN (18:40)
[2020-07-17] MEDS: fentaNYL 100 MCG/2 ML INJECTION (J3010) IV PRN ×4 (18:47→19:21)
[2020-07-17] MEDS: oxyCODONE 5MG TAB PO PRN ×2 (18:48→19:20)
--- NOTE | 2020-07-17 18:58 | HPEPDOC ---
[facility] Medical History & Physical Date of Admission Jul 17, 2020 Date of Service: Jul 17, 2020 Primary Care Physician: Neal Schafer MD [facility] Attending Physician: MOSHE ADDISON DO History and Physical CHIEF COMPLAINT: Generalize malaise, fevers, chills, aches HISTORY OF PRESENT ILLNESS: And patient was transferred to [facility] from [facility]. The patient reports that she present to [facility] yesterday, was given "a pill" and sent home from the ED. She continued to feel poorly with generalized malaise, fevers, chills, aches, therefore she returned back to [facility] this morning. Per the records faxed over from their facility it appears that her urine culture and blood culture resulted and gram-negative rods signifying gram-negative bacteremia and sepsis. CT scan of the abdomen and pelvis from [facility] reads: "a left renal calculus that is now migrated to the distal left ureter measuring approximately 8.5 mm in greatest diameter. There is mild to moderate left hydronephrosis with hydroureter and surrounding inflammatory change and perinephric fat. There is also small amount of fluid that is extending along the left paracolic gutter into the pelvis" please see report in the paper chart for full details. She was given a dose of Zosyn and then subsequently transferred to our facility for evaluation by urology. CODE STATUS: Full code PAST MEDICAL HISTORY: (Obtained from medical records from [facility]) Diverticula of the colon Multiple kidney stones in the past Obesity Pseudotumor cerebri Hypercholesterolemia Varicose veins PAST SURGICAL HISTORY: Appendectomy Hysterectomy SOCIAL HISTORY: On per the faxed medical record it appears that the patient is , has a boyfriend of 26 years, 3 children, 2 grandchildren. She is a never smoker, only drinks alcohol on holidays/special occasions, and does not use any recreational drugs. FAMILY HISTORY: Mother had pulmonary fibrosis. Father had colon cancer. Both are . REVIEW OF SYSTEMS: Constitutional: Patient reports fevers, chills, night sweats. Denies recent weight gain/loss. HEENT: Patient denies blurred or double vision, transient visual disturbances, postnasal drip, epistaxis, sore throat, difficulty chewing or swallowing food. Cardiovascular: Patient denies chest discomfort/pain, palpitations, exertional dyspnea, orthopnea, edema of the extremities, claudication. Respiratory: Patient denies dyspnea, wheezing, cough, hemoptysis, sputum production. Gastrointestinal: Patient denies nausea, vomiting, diarrhea, constipation, she really is not complaining of any abdominal pain, denies melena, hematochezia, hematemesis, jaundice. Genitourinary, denies dysuria, frequency, hematuria. PHYSICAL EXAMINATION: General: Awake, alert, she is not in any acute distress, but does appear to be fatigued. HEENT: Head normocephalic atraumatic, conjunctiva are pink, sclera are nonicteric. Hearing is grossly intact to conversation. Respiratory: Clear to auscultation bilaterally with no wheezes, rales, or rhonchi. Cardiovascular: Regular rate and rhythm, with no rubs, gallops, or murmur. Abdomen: Soft, nontender, nondistended, no hepatosplenomegaly appreciated. Bowel sounds present. Extremities: 2+ pulses in the radial and dorsalis pedis bilaterally. No evidence of clubbing or cyanosis. ASSESSMENT: Gram-negative josef bacteremia Sepsis Nephrolithiasis UTI Hyperlipidemia PLAN: She'll be taken immediately to the OR per recommendations from urology. Labs and blood work will be obtained when she gets back. She is Lucas received a dose of Zosyn at [facility], and apparently will receive another just prior to surgery. Will likely need to contact [facility] and 24 and 48 hours for results of blood and urine cultures so that we can narrow our antibiotic choice. Vital Signs Vital Signs Date Time Temp Pulse Resp B/P (MAP) Pulse Ox O2 Delivery O2 Flow Rate FiO2 07/17/20 18:54 99.9 77 18 102/56 (71) 94 Room Air 07/17/20 18:27 3 Laboratory Data Microbiology Microbiology 07/17/20 Urine Culture, Received Pending Home Medications Scheduled Atorvastatin Calcium (Atorvastatin Calcium) 10 Mg Tablet, 10 MG PO DAILY Hcwkvyvjhltb-Puac-Gedgphad,Iso (Zosyn 3.375 gm/50 ml Galaxy) 3.375 Gm/50 Ml Froz.piggy, 3.375 GM IV ONCE RECEIVED AT [facility] Sulfamethoxazole/Trimethoprim (Sulfamethoxazole-Tmp Ds Tablet) 1 Each Tablet, 1 TAB PO BID STARTED 07/16/20 FOR 7 DAYS Scheduled PRN Acetaminophen (Acetaminophen) 325 Mg Tablet, 650 MG PO Q6H PRN for PAIN / FEVER Allergies Coded Allergies: No Known Allergies (Unverified , 05/17/20) A-FIB/CHADSVASC A-FIB History Current/History of A-Fib/PAF?: No MOSHE ADDISON DO Jul 17, 2020 18:58
[2020-07-17 19:31] LABS: BASO % 0.1 % (0.0-1.0); EOS % 0.1 % (0.0-3.0); HEMATOCRIT 31.2 % (36.0-47.0); HEMOGLOBIN 9.8 g/dl (12.0-15.5); LYMPH # 0.4 10^3/uL (1.5-5.0); LYMPH % 2.8 % (24.0-44.0); MEAN CORPUSCULAR HEMOGLOBIN 27.8 pg (27.0-33.0); MEAN CORPUSCULAR HGB CONC 31.4 g/dl (32.0-36.5); MEAN CORPUSCULAR VOLUME 88.6 fl (80.0-96.0); MONO # 0.6 10^3/uL (0.0-0.8); MONO % 4.1 % (2.0-8.0); NEUTROPHILS # 13.9 10^3/uL (1.5-8.5); PLATELET COUNT, AUTOMATED 236 10^3/uL (150-450); RED BLOOD COUNT 3.52 10^6/uL (4.00-5.40); WHITE BLOOD COUNT 15.1 10^3/uL (4.0-10.0)
[2020-07-17 19:40] VITALS: BP 127/65
[2020-07-17] MEDS: NS 1,000 ML IV SCH (19:54)
[2020-07-17] MEDS: ATORVASTATIN 10 MG TAB PO SCH (20:08)
[2020-07-17 20:10] VITALS: BP 115/69
[2020-07-17 20:33] LABS: CREATININE FOR GFR 1.04 MG/DL (0.55-1.30); GLOMERULAR FILTRATION RATE 56.4 (>45); POTASSIUM SERUM 4.5 MEQ/L (3.5-5.1)
[2020-07-17 21:10] VITALS: BP 120/64
[2020-07-17 22:00] VITALS: BP 111/68
[2020-07-17 23:10] VITALS: BP 111/58
[2020-07-18] MEDS: PIPERACILLIN/TAZOBACTAM SOD 3.375 GM in D5W MINI-BAG PLUS 50 ML IV SCH ×5 (00:10→23:22)
[2020-07-18] MEDS: ACETAMINOPHEN TAB 650MG DOSE (2X325MG) PO PRN ×5 (00:47→23:22)
[2020-07-18] MEDS: NS 1,000 ML IV SCH ×5 (02:03→21:28)
[2020-07-18 04:00] VITALS: BP 112/59
[2020-07-18 06:04] LABS: HEMATOCRIT 32.3 % (36.0-47.0); HEMOGLOBIN 10.1 g/dl (12.0-15.5); MEAN CORPUSCULAR HEMOGLOBIN 27.8 pg (27.0-33.0); MEAN CORPUSCULAR HGB CONC 31.3 g/dl (32.0-36.5); PLATELET COUNT, AUTOMATED 255 10^3/uL (150-450); RED BLOOD COUNT 3.63 10^6/uL (4.00-5.40); WHITE BLOOD COUNT 12.8 10^3/uL (4.0-10.0)
[2020-07-18 06:32] LABS: BLOOD UREA NITROGEN 12 MG/DL (7-18); CARBON DIOXIDE LEVEL 22 MEQ/L (21-32); CHLORIDE LEVEL 111 MEQ/L (98-107); CREATININE FOR GFR 0.92 MG/DL (0.55-1.30); GLOMERULAR FILTRATION RATE > 60.0 (>45); GLUCOSE, FASTING 133 MG/DL (70-100); POTASSIUM SERUM 4.4 MEQ/L (3.5-5.1); SODIUM LEVEL 139 MEQ/L (136-145)
--- NOTE | 2020-07-18 07:55 | IPNPDOC ---
Subjective Review oF Systems Chief Complaint The patient is a 65-year-old female admitted with a reason for visit of Sepsis/Obstructive Uropathy. Events since Last Encounter No acute events o/n. Patient's pain is better. No n/v. No f/c/ns. Objective Physical Examination General Exam: Alert, Cooperative, No Acute Distress ABDOMEN EXAM: Soft, Hernia; No: Tenderness Skin Exam: Nl turgor and temperature Psych Exam: Mental status NL, Mood NL Other physical findings no CVAT; catheter draining clear yellow urine Vital Signs/I&O Vital Signs Date Time Temp Pulse Resp B/P (MAP) Pulse Ox O2 Delivery O2 Flow Rate FiO2 07/18/20 04:00 97.2 72 18 112/59 (76) 91 Room Air 07/17/20 18:27 3 I&O- Last 24 Hours up to 6 AM 07/18/20 06:00 Intake Total 2690 ml Output Total 1605 ml Balance 1085 ml Laboratory Data Labs 24H Laboratory Tests 2 07/17/20 18:15: 07/17/20 19:21: Immature Granulocyte % (Auto) 0.9, Neutrophils (%) (Auto) 92.0H, Lymphocytes (%) (Auto) 2.8L, Monocytes (%) (Auto) 4.1, Eosinophils (%) (Auto) 0.1, Basophils (%) (Auto) 0.1, Neutrophils # (Auto) 13.9H, Lymphocytes # (Auto) 0.4L, Monocytes # (Auto) 0.6, Eosinophils # (Auto) 0.0, Basophils # (Auto) 0.0, Nucleated Red Blood Cells % (auto) 0.0, Lactic Acid Level 1.1 07/17/20 20:02: Anion Gap 6L, Glomerular Filtration Rate 56.4, Calcium Level 8.0L 07/18/20 05:46: Nucleated Red Blood Cells % (auto) 0.0, Anion Gap 6L, Glomerular Filtration Rate > 60.0, Calcium Level 8.0L CBC/BMP Laboratory Tests 07/17/20 19:21 07/17/20 20:02 07/18/20 05:46 Microbiology Microbiology 07/17/20 Blood Culture, Received Pending 07/17/20 Blood Culture, Received Pending 07/17/20 Urine Culture, Received Pending Assessment/Plan Date Seen The patient was seen on 07/18/20. Patient Summary This is a 65 y/o F admitted for an obstructing distal L ureteral stone and sepsis due to a UTI, POD1 s/p cysto, L ureteroscopy w/ basket extraction of s tone fragments, L ureteral stent placement. She feels much better today. Plan/VTE VTE Prophylaxis Ordered?: Yes VTE Exclusion Mechanical Proph: N/A:VTE Prophy Ordered Plan - d/c Prakash - continue broad spectrum abx - adjust abx based on culture results - cultures from [facility] should likely result today - my office will arrange f/u in 3-4 wks for stent removal GATITO RICE MD Jul 18, 2020 07:55
[2020-07-18 08:00] VITALS: BP 140/71
--- NOTE | 2020-07-18 09:03 | RO ---
OPERATIVE NOTE DATE OF OPERATION: 07/17/2020 PREOPERATIVE DIAGNOSIS: Left ureteral stone. POSTOPERATIVE DIAGNOSIS: Left ureteral stone. PROCEDURE: Cystoscopy, left ureteroscopy with basket extraction of stones, left retrograde pyelogram with intraop interpretation of images, left ureteral stent placement. SURGEON: Freddie Lowry MD MOLDING PLASTERER: None. ANESTHESIA: General. OPERATIVE INDICATIONS: This is a 65-year-old female who underwent left-sided ureteroscopy and laser lithotripsy approximately two months ago. She presented to the emergency room yesterday with fevers, chills and CT scan notable for what appeared to be an obstructing and distal left ureteral stones. She was also noted to have Gram negative rods growing on blood culture. It was recommended she be brought to the operating room emergently for the above listed procedure. DESCRIPTION OF PROCEDURE: The patient was brought to the operating room and general anesthesia was induced. Broad spectrum antibiotics were infused. She was placed in dorsal lithotomy position and prepped and draped in usual sterile fashion. Rigid cystoscope inserted in urethral meatus and advanced into bladder. Guidewire was advanced up the left collecting system. I went up the left collecting system with a short semi-rigid ureteroscope and within the distal ureter there appeared to be a decent amount of scarring. In the scarring there were several small kidney stones. I was able to remove all the stone fragments using a basket. I then examined the more proximal ureter and no additional stones were seen. At this point I withdrew the ureteroscope and advanced 5-Ukrainian open-ended ureteral catheter over the wire. The guidewire was then removed. I then utilized the ureteral catheter to aspirate urine from the left kidney and this was sent for culture. Retrograde pyelogram was performed and notable for moderate left hydroureteronephrosis with no extravasation. I then advanced the guidewire back up the left collecting system, I removed the ureteral catheter. I then utilized a guidewire to advance a 7-Ukrainian x 22-32 cm JJ ureteral stent into the left collecting system. The wire was removed and there were adequate curls of the stent in left renal pelvis and the bladder. At this point a 16 Ukrainian Prakash catheter was inserted into the bladder. The balloon was filled with 10 mL of sterile water and catheter was connected to gravity drainage. This marked the conclusion of the procedure. The patient was taken out of the dorsal lithotomy position, awakened from anesthesia and transferred to recovery room in stable condition. ESTIMATED BLOOD LOSS: 5 mL. COMPLICATIONS: None. SPECIMEN: Kidney stones, urine from left kidney for culture. PLAN: The patient will be admitted to the hospital for treatment of sepsis. Will ultimately take her stent out in approximately 3-4 weeks. RICHARD
[2020-07-18] MEDS: ENOXAPARIN 40MG/0.4ML SYRINGE (J1650 PER 10MG) SC SCH (09:15)
[2020-07-18] MEDS: ATORVASTATIN 10 MG TAB PO SCH (09:15)
[2020-07-18 12:00] VITALS: BP 132/76
[2020-07-18 16:00] VITALS: BP 140/89
[2020-07-18 20:00] VITALS: BP 125/74
--- NOTE | 2020-07-18 20:49 | IPNPDOC ---
Subjective Date Seen The patient was seen on 07/18/20. Subjective Chief Complaint/HPI Mrs. Harvey is a 65 year old female transferred from [facility] for sepsis secodnary to UTI complicated by left renal calculi measuring 8.5mm. Urology took patient to the OR for left ureteroscopy with extraction of stone fragments and stent placement on 07/17/2020. This morning, she denies any chest pain or dyspnea. Otherwise, last fever was yesterday evening Objective Physical Examination General Exam: Positive: Alert, Cooperative Eye Exam: Positive: EOMI; Negative: Sclera icteric Neck Exam: Positive: Supple Chest Exam: Positive: Clear to auscultation; Negative: Rales, Rhonchi, Wheezing Heart Exam: Positive: Rate Normal, Regular Rhythm Abdomen Exam: Positive: Normal bowel sounds, Soft; Negative: Tenderness Extremity Exam: Negative: Edema Neuro Exam: Positive: Normal Speech, Cranial Nerves 3-12 NL Psych Exam: Positive: Mental status NL, Mood NL Assessment /Plan Assessment Mrs. Harvey is a 65 year old female transferred from [facility] for sepsis secodnary to UTI complicated by left renal calculi measuring 8.5mm. Urology took patient to the OR for left ureteroscopy with extraction of stone fragments and stent placement on 07/17/2020. Urine culture from [facility] returned with E.coli sensitive to Bactrim and Zosyn, resistant to fluoroquinolones. We will wait for patient to be afebrile for 24 hours before discharging on PO Bactrim. Will continue with IV Zosyn while inpatient. On discharge, patient will need to follow up with urology in 3 to 4 weeks for stent removal. Plan/VTE VTE Prophylaxis Ordered?: Yes VTE Exclusion Mechanical Proph: N/A:VTE Prophy Ordered Plan 1. Gram negative sepsis -Secondary to E.coli UTI complicating with obstructing L stone -Urology took patient to OR for stone retrieval and stent placement -Will continue IV Zosyn while inpatient, PO Bactrim on discharge 2. E.coli UTI complicating by L obstructing stone -Urology took patient to OR on 07/17/2020 -E.coli resistant to fluoroquinolones -Continue Zosyn while inpatient, switch to PO Bactrim outpatient -Will wait for patient to be afebrile for 24 hours before discharge 3. Nephrolithiasis -Patient had 8.5mm obstructive left stone -Patient to follow up with urology in 3 to 4 weeks for stent removal 4. Hyperlipidemia -Continue atorvastatin 5. DVT ppx -Lovenox Disposition: Possible discharge tomorrow if remains afebrile VS, I&O, 24H, [place] Vital Signs/I&O Vital Signs Date Time Temp Pulse Resp B/P (MAP) Pulse Ox O2 Delivery O2 Flow Rate FiO2 07/18/20 16:00 99.4 87 18 140/89 (106) 97 Room Air 07/17/20 18:27 3 I&O- Last 24 Hours up to 6 AM 07/18/20 06:00 Intake Total 2690 ml Output Total 1605 ml Balance 1085 ml Laboratory Data 24H LABS Laboratory Tests 2 07/18/20 05:46: Nucleated Red Blood Cells % (auto) 0.0, Anion Gap 6L, Glomerular Filtration Rate > 60.0, Calcium Level 8.0L CBC/BMP Laboratory Tests 07/18/20 05:46 Microbiology Microbiology 07/17/20 Blood Culture - Preliminary, Resulted No growth after 24 hours . All specim... 07/17/20 Blood Culture - Preliminary, Resulted No growth after 24 hours . All specim... 07/17/20 Urine Culture, Received Pending DIRK CERDA DO Jul 18, 2020 20:49
[2020-07-19] VITALS: BP 146/68
[2020-07-19] MEDS: NS 1,000 ML IV SCH ×4 (01:30→22:57)
[2020-07-19] MEDS: ACETAMINOPHEN TAB 650MG DOSE (2X325MG) PO PRN ×3 (03:41→20:02)
[2020-07-19 04:00] VITALS: BP 141/94
[2020-07-19 05:32] LABS: HEMATOCRIT 31.1 % (36.0-47.0); HEMOGLOBIN 9.9 g/dl (12.0-15.5); MEAN CORPUSCULAR HEMOGLOBIN 27.8 pg (27.0-33.0); MEAN CORPUSCULAR HGB CONC 31.8 g/dl (32.0-36.5); MEAN CORPUSCULAR VOLUME 87.4 fl (80.0-96.0); PLATELET COUNT, AUTOMATED 293 10^3/uL (150-450); RED BLOOD COUNT 3.56 10^6/uL (4.00-5.40); WHITE BLOOD COUNT 11.8 10^3/uL (4.0-10.0)
[2020-07-19 05:50] LABS: CALCIUM LEVEL 7.8 MG/DL (8.8-10.2); CREATININE FOR GFR 1.02 MG/DL (0.55-1.30); GLOMERULAR FILTRATION RATE 57.7 (>45)
[2020-07-19] MEDS ORDERED: DOCUSATE SODIUM 100MG CAPSULE PO PRN (06:00)
[2020-07-19] MEDS: PIPERACILLIN/TAZOBACTAM SOD 3.375 GM in D5W MINI-BAG PLUS 50 ML IV SCH ×3 (06:47→18:22)
[2020-07-19 08:00] VITALS: BP 141/77
[2020-07-19] MEDS: ATORVASTATIN 10 MG TAB PO SCH (09:58)
[2020-07-19] MEDS: ENOXAPARIN 40MG/0.4ML SYRINGE (J1650 PER 10MG) SC SCH (09:58)
[2020-07-19 12:00] VITALS: BP 152/77
[2020-07-19 16:00] VITALS: BP 125/66
[2020-07-19 20:00] VITALS: BP 142/77
--- NOTE | 2020-07-19 22:54 | IPNPDOC ---
Subjective Date Seen The patient was seen on 07/19/20. Subjective Chief Complaint/HPI Mrs. Harvey is a 65 year old female transferred from [facility] for sepsis secodnary to UTI complicated by left renal calculi measuring 8.5mm. Urology took patient to the OR for left ureteroscopy with extraction of stone fragments and stent placement on 07/17/2020. 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 Otherwise, she denies any chest pain or dyspnea. Objective Physical Examination General Exam: Positive: Alert, Cooperative Eye Exam: Positive: EOMI; Negative: Sclera icteric Neck Exam: Positive: Supple Chest Exam: Positive: Clear to auscultation; Negative: Rales, Rhonchi, Wheezing Heart Exam: Positive: Rate Normal, Regular Rhythm Abdomen Exam: Positive: Normal bowel sounds, Soft; Negative: Tenderness Extremity Exam: Negative: Edema Neuro Exam: Positive: Normal Speech, Cranial Nerves 3-12 NL Psych Exam: Positive: Mental status NL, Mood NL Assessment /Plan Assessment Mrs. Harvey is a 65 year old female transferred from [facility] for sepsis secodnary to UTI complicated by left renal calculi measuring 8.5mm. Urology took patient to the OR for left ureteroscopy with extraction of stone fragments and stent placement on 07/17/2020. Urine culture from [facility] returned with E.coli sensitive to Bactrim and Zosyn, resistant to flu oroquinolones. We will wait for patient to be afebrile for 24 hours before discharging on PO Bactrim. Will continue with IV Zosyn while inpatient. On discharge, patient will need to follow up with urology in 3 to 4 weeks for stent removal. Plan/VTE VTE Prophylaxis Ordered?: Yes VTE Exclusion Mechanical Proph: N/A:VTE Prophy Ordered Plan 1. Gram negative sepsis -Secondary to E.coli UTI complicating with obstructing L stone -Urology took patient to OR for stone retrieval and stent placement -Will continue IV Zosyn while inpatient, PO Bactrim on discharge 2. E.coli UTI complicating by L obstructing stone -Urology took patient to OR on 07/17/2020 -E.coli resistant to fluoroquinolones -Continue Zosyn while inpatient, switch to PO Bactrim outpatient -Will wait for patient to be afebrile for 24 hours before discharge 3. Nephrolithiasis -Patient had 8.5mm obstructive left stone -Patient to follow up with urology in 3 to 4 weeks for stent removal 4. Hyperlipidemia -Continue atorvastatin 5. DVT ppx -Lovenox Disposition: Possible discharge tomorrow if remains afebrile. Last fever on 07/19/2020 at 4AM VS, I&O, 24H, [place] Vital Signs/I&O Vital Signs Date Time Temp Pulse Resp B/P (MAP) Pulse Ox O2 Delivery O2 Flow Rate FiO2 07/19/20 20:00 99.1 94 18 142/77 (98) 94 Room Air 07/17/20 18:27 3 I&O- Last 24 Hours up to 6 AM 07/19/20 06:00 Intake Total 4950 ml Output Total 2000 ml Balance 2950 ml Laboratory Data 24H LABS Laboratory Tests 2 07/19/20 05:17: Nucleated Red Blood Cells % (auto) 0.0, Anion Gap 3L, Glomerular Filtration Rate 57.7, Calcium Level 7.8L CBC/BMP Laboratory Tests 07/19/20 05:17 Microbiology Microbiology 07/17/20 Blood Culture - Preliminary, Resulted No Growth after 48 hours. All Specime... 07/17/20 Blood Culture - Preliminary, Resulted No Growth after 48 hours. All Specime... 07/17/20 Urine Culture - Final, Complete DIRK CERDA DO Jul 19, 2020 22:54
[2020-07-20] VITALS: BP 136/64
[2020-07-20] MEDS: PIPERACILLIN/TAZOBACTAM SOD 3.375 GM in D5W MINI-BAG PLUS 50 ML IV SCH ×3 (00:48→12:27)
[2020-07-20] MEDS: ACETAMINOPHEN TAB 650MG DOSE (2X325MG) PO PRN (01:53)
[2020-07-20 04:00] VITALS: BP 138/90
[2020-07-20] MEDS: NS 1,000 ML IV SCH (05:48)
[2020-07-20 05:58] LABS: HEMATOCRIT 30.4 % (36.0-47.0); HEMOGLOBIN 9.6 g/dl (12.0-15.5); MEAN CORPUSCULAR HEMOGLOBIN 27.6 pg (27.0-33.0); MEAN CORPUSCULAR HGB CONC 31.6 g/dl (32.0-36.5); MEAN CORPUSCULAR VOLUME 87.4 fl (80.0-96.0); PLATELET COUNT, AUTOMATED 293 10^3/uL (150-450); RED BLOOD COUNT 3.48 10^6/uL (4.00-5.40); WHITE BLOOD COUNT 8.3 10^3/uL (4.0-10.0)
[2020-07-20 06:15] LABS: BLOOD UREA NITROGEN 9 MG/DL (7-18); CALCIUM LEVEL 7.6 MG/DL (8.8-10.2); CARBON DIOXIDE LEVEL 24 MEQ/L (21-32); CHLORIDE LEVEL 111 MEQ/L (98-107); CREATININE FOR GFR 0.91 MG/DL (0.55-1.30); GLOMERULAR FILTRATION RATE > 60.0 (>45); GLUCOSE, FASTING 109 MG/DL (70-100); POTASSIUM SERUM 3.6 MEQ/L (3.5-5.1); SODIUM LEVEL 142 MEQ/L (136-145)
[2020-07-20 07:34] VITALS: BP 142/77
[2020-07-20] MEDS ORDERED: guaiFENesin ER 600 MG TAB PO SCH (09:00)
--- NOTE | 2020-07-20 09:10 | REP ---
INDICATION: chest congestion. COMPARISON: None. TECHNIQUE: Upright PA and lateral chest. FINDINGS: The lung german are clear. Cardiac size is normal. The marcos, mediastinum and skeletal structures are unremarkable, except for a large fixed hiatal hernia containing an air-fluid level. IMPRESSION: There are no acute cardiopulmonary findings. There is a large fixed hiatal hernia containing an air-fluid level. <Electronically signed by Mahesh Decker > 07/20/20 0906
[2020-07-20] MEDS: ATORVASTATIN 10 MG TAB PO SCH (10:00)
[2020-07-20] MEDS: ENOXAPARIN 40MG/0.4ML SYRINGE (J1650 PER 10MG) SC SCH (10:02)
[2020-07-20] MEDS ORDERED: BACT800T5 PO (10:25)
[2020-07-20] MEDS ORDERED: MUCI600T31 PO (10:25)
[2020-07-20 12:00] VITALS: BP 158/90
--- NOTE | 2020-07-20 22:09 | DS.PDOC ---
Discharge Summary General Date of Admission Jul 17, 2020 at 16:20 Date of Discharge Jul 20, 2020 Specialist/Consultants [facility] Urology, Dr. Lowry Discharge Summary PROCEDURES PERFORMED DURING STAY: Left ureteroscopy with basket extraction of stones and left ureteral stent placement ADMITTING DIAGNOSES: 1. Gram negative sepsis 2. Nephrolithiasis 3. UTI 4. Hyperlipidemia DISCHARGE DIAGNOSES: 1. Gram negative sepsis 2. E.coli UTI complicated by left obstructing stone 3. Left pyelonephritis 4. Nephrolithiasis 5. Hyperlipidemia COMPLICATIONS/CHIEF COMPLAINT: Sepsis/Obstructive Uropathy. HISTORY OF PRESENT ILLNESS: Mrs. Harvey is a 65 year old female who was transferred here from [facility] for sepsis secondary to UTI complicated by obstructing left renal calculus. She initially presented to [facility] the day prior to presentation and was sent home with antibiotics. She returned on day of admission for fever/chills, aches, and ma laise. Blood cultures and urine cultures from [facility] was positive for gram negative rods. CT abd/pelvis demonstrated "left renal calculus that is now migrated to the distal left ureter measuring 8.5mm in greatest diameter. There is mild to moderate left hydronephrosis with h ydroureter and surrounding inflammatory change and perinephric fat. There is also small amount of fluid that is extending along the left paracolic gutter into the pelvis" She was given Zosyn and transferred to [facility] for evaluation by urology. HOSPITAL COURSE: Patient went to the OR for left stone retrieval and stent placement. She did well after surgery. Cultures returned as E.coli resistant to fluoroquinolones. She was continued on Zosyn inpatient. She did have an episode of fever, but on the day of discharge she was feeling well. She was without fever for more than 24 hours. She felt ready for home and was subsequently discharged with Bactrim. She had instructions to follow up with Urology outpatient for stent removal. DISCHARGE MEDICATIONS: Please see below. ALLERGIES: Please see below. PHYSICAL EXAMINATION ON DISCHARGE: VITAL SIGNS: Please see below. GENERAL: Comfortable, in no apparent distress HEENT: Head normocephalic, atraumatic NECK: Supple CARDIOVASCULAR EXAMINATION: Regular rate and rhythm RESPIRATORY EXAMINATION: Lungs clear to auscultation bilaterally ABDOMINAL EXAMINATION: Soft, non-tender, normal bowel sounds EXTREMITIES: No pitting edema bilaterally SKIN: Warm and dry NEUROLOGICAL EXAMINATION: CN 3-12 grossly intact PSYCHIATRIC EXAMINATION: Normal mood and affect LABORATORY DATA: Please see below. IMAGING: Radiologist interpretation CXR There are no acute cardiopulmonary findings. There is a large fixed hiatal hernia containing an air-fluid level. Retrograde pyelogram A left ureteral stent is placed. The proximal end is coiled in the left renal pelvis and the distal end is coiled in the urinary bladder. Contrast partially opacifies a mildly dilated left pelvocaliceal system. PROGNOSIS: Good ACTIVITY: As tolerated. DIET: As tolerated DISCHARGE PLAN: Home DISPOSITION: 06 Home Health Service. DISCHARGE INSTRUCTIONS: 1. Follow up with PCP within a week 2. Follow up with urology in 3 to 4 weeks ITEMS TO FOLLOWUP ON ON OUTPATIENT: 1. Left stent removal DISCHARGE CONDITION: Stable. Total time spent on discharge planning, discharge summary, and medication reconciliation: 40 minutes Vital Signs/I&Os Vital Signs Date Time Temp Pulse Resp B/P (MAP) Pulse Ox O2 Delivery O2 Flow Rate FiO2 07/20/20 12:00 98.9 87 19 158/90 (112) 99 Room Air 07/17/20 18:27 3 I&O- Last 24 Hours up to 6 AM 07/20/20 06:00 Intake Total 3400 ml Balance 3400 ml Laboratory Data Labs 24H Laboratory Tests 2 07/20/20 05:36: Nucleated Red Blood Cells % (auto) 0.0, Anion Gap 7L, Glomerular Filtration Rate > 60.0, Calcium Level 7.6L, Magnesium Level 2.0 CBC/BMP Laboratory Tests 07/20/20 05:36 Microbiology Microbiology 07/17/20 Blood Culture - Preliminary, Resulted No Growth after 72 hours. All specime... 07/17/20 Blood Culture - Preliminary, Resulted No Growth after 72 hours. All specime... 07/17/20 Urine Culture - Final, Complete Discharge Medications Scheduled Atorvastatin Calcium (Atorvastatin Calcium) 10 Mg Tablet, 10 MG PO DAILY, (Reported) Guaifenesin (Mucinex) 600 Mg Tab.er.12h, 600 MG PO BID Sulfamethoxazole/Trimethoprim (Bactrim Ds Tablet) 1 Each Tablet, 1 TAB PO BID Scheduled PRN Acetaminophen (Acetaminophen) 325 Mg Tablet, 650 MG PO Q6H PRN for PAIN / FEVER, (Reported) Allergies Coded Allergies: No Known Allergies (Unverified , 05/17/20) DIRK CERDA DO Jul 20, 2020 22:09
[2020-07-24 17:06] LABS: CA Oxalate Dihy 30 % (.); Ca Ox Monohydrate 65 % (.); Size 5x3 mm (.)
== END 2020-07-20 12:45 | disposition home health service (06) | DRG 854 ==
LOC: M PCU 16:20
PROVIDERS: ADMIT Internal Medicine; ATTEND Internal Medicine
PROC: 0TC78ZZ Extirpation of Matter from Left Ureter, Via Natural or Artificial Opening Endoscopic (ICD-10-PCS; 2020-07-17)
PROC: 0T778DZ Dilation of Left Ureter with Intraluminal Device, Via Natural or Artificial Opening Endoscopic (ICD-10-PCS; principal; 2020-07-17 17:00)
DX: A41.50 Gram-negative sepsis, unspecified (principal); N20.1 Calculus of ureter; N39.0 Urinary tract infection, site not specified; K57.30 Diverticulosis of large intestine without perforation or abscess without bleeding; E78.5 Hyperlipidemia, unspecified; E66.9 Obesity, unspecified; Z79.899 Other long term (current) drug therapy

== ENCOUNTER 2020-08-21 15:24 | Inpatient (IN) | payer MEDICARE ==
[~2020-08-21] VITALS: Ht 160 cm; Wt 86.4 kg
[~2020-08-21 15:24] MED LIST changes: +ACET1TAB55 PO; +BACT800T5 PO; +BACTDSTA PO; +MUCI600T31 PO; +TAMSULOSIN 0.4 MG CAP PO SCH; +ZOSY1SOL5 IV
[2020-08-21 18:23] VITALS: BP 123/59
[2020-08-21] MEDS: NS 1,000 ML IV SCH (18:55)
[2020-08-21 19:27] LABS: BASO % 0.2 % (0.0-1.0); HEMATOCRIT 33.3 % (36.0-47.0); HEMOGLOBIN 10.2 g/dl (12.0-15.5); LYMPH # 0.8 10^3/uL (1.5-5.0); LYMPH % 4.3 % (24.0-44.0); MEAN CORPUSCULAR HEMOGLOBIN 27.2 pg (27.0-33.0); MEAN CORPUSCULAR HGB CONC 30.6 g/dl (32.0-36.5); MEAN CORPUSCULAR VOLUME 88.8 fl (80.0-96.0); MONO # 1.2 10^3/uL (0.0-0.8); MONO % 6.7 % (2.0-8.0); NEUTROPHILS # 15.9 10^3/uL (1.5-8.5); NEUTROPHILS % 88.4 % (36.0-66.0); PLATELET COUNT, AUTOMATED 394 10^3/uL (150-450); RED BLOOD COUNT 3.75 10^6/uL (4.00-5.40)
[2020-08-21 20:00] VITALS: BP_SYST 102; BP_SYST 119; BP_DIAS 57; BP_DIAS 59
[2020-08-21 20:18] LABS: ALBUMIN 3.2 GM/DL (3.2-5.2); BILIRUBIN,TOTAL 0.8 MG/DL (0.2-1.0); CALCIUM LEVEL 9.2 MG/DL (8.8-10.2); CREATININE FOR GFR 1.12 MG/DL (0.55-1.30); GLOMERULAR FILTRATION RATE 51.8 (>45); POTASSIUM SERUM 4.2 MEQ/L (3.5-5.1)
--- NOTE | 2020-08-21 20:26 | SMCUROLCON ---
Urology Consultation General Date of Consultation 08/21/20 Reason For Consultation This patient is seen for Bilateral Hydronephrosis. History of Present Illness This is a 65 y/o F who is s/p cystoscopy, left ureteroscopy with basket extraction of stones, and left ureteral stent placement on 07/17/20, and then stent removal on 08/11/20, transferred from [facility] for possible sepsis. She notes the onset of L flank pain as well as fevers over the past day. She went to [facility] ER and was found to have a WBC of 14,000, and a UA w/ several WBCs and bacteria. A noncontrast CT A/P was performed that was notable for moderate L hydroureteronephrosis down to the level of the distal ureter. On my review of imaging, the patient appears to have either a stricture at this level or 2 small adjacent calcifications causing the obstruction. There is no R hydronephrosis. At the time of my exam, the patient noted that her pain was much better. Past Medical History Medical History Diverticulosis Kidney Stones HL Surgical Hstory Hysterectomy Ureteroscopy with Laser Lithotripsy Medications Current Medications Current Medications Medications (Trade) Dose Ordered Sig/Lucia Route PRN Reason Start Time Stop Time Status Last Admin Dose Admin Acetaminophen (Tylenol Tab) 650 mg Q6HP PRN PO PAIN / FEVER 08/21/20 18:40 Ceftriaxone Sodium 1 gm/ Dextrose 50 ml @ 100 mls/hr Q24H IV 08/21/20 21:00 Home Med (Med Rec Complete!) ASDIRECTED XX 08/21/20 19:00 08/21/20 19:04 DC Sodium Chloride 1,000 ml @ 50 mls/hr Q20H IV 08/21/20 16:10 08/21/20 18:55 Tamsulosin HCl (Flomax) 0.4 mg DAILY PO 08/21/20 09:00 Allergies Allergies: Coded Allergies: No Known Allergies (Unverified , 05/17/20) Review of Systems Constitutional: Reports: Fever Skin: Denies: Rash, Lesions, Breakdown, Nail Changes Pulmonary: Denies: Dyspnea, Cough Cardiovascular: Denies Chest Pain, Denies Palpitations Gastrointestinal: Reports: Nausea, Abdominal Pain (LLQ) Genitourinary: Reports: Dysuria Musculoskeletal: Reports: Back Pain (left flank) Psych: Reports: Mood Normal Physical Examination General Exam: Alert, Cooperative, No Acute Distress Chest Exam: Normal air movement Heart Exam: Rate Normal Abdomen Exam: Soft, Tenderness (mild LLQ) Skin Exam: Nl turgor and temperature Neuro Exam: Normal Speech Psych Exam: Mental status NL, Mood NL Vital Signs/I&O Vital Signs Date Time Temp Pulse Resp B/P (MAP) Pulse Ox O2 Delivery O2 Flow Rate FiO2 08/21/20 18:23 97.8 92 18 123/59 (80) 94 Room Air Laboratory Data 24H Labs Laboratory Tests 2 08/21/20 19:15: Immature Granulocyte % (Auto) 0.4, Neutrophils (%) (Auto) 88.4H, Lymphocytes (%) (Auto) 4.3L, Monocytes (%) (Auto) 6.7, Eosinophils (%) (Auto) 0.0, Basophils (%) (Auto) 0.2, Neutrophils # (Auto) 15.9H, Lymphocytes # (Auto) 0.8L, Monocytes # (Auto) 1.2H, Eosinophils # (Auto) 0.0, Basophils # (Auto) 0.0, Nucleated Red Blood Cells % (auto) 0.0 CBC/BMP Laboratory Tests 08/21/20 19:15 Assessment This is a 65 y/o F admitted for possible sepsis due to a UTI and L hydro. She appears comfortable at this time. It is not clear if her obstruction is due to small stone fragments in the distal ureter or a stricture. I recommend hydrating her, broad spectrum antibiotics, and flomax. If she does not improve clinically by tomorrow, I will recommend that she go to the OR for cystoscopy, L ureteroscopy w/ possible balloon dilation, and L ureteral stent placement. Plan - broad spectrum abx - blood and urine cultures - flomax ordered - hydrate - strain all urine - NPO at midnight in case she needs surgery tomorrow GATITO RICE MD August 21, 2020 20:26
[2020-08-21] MEDS: ACETAMINOPHEN TAB 650MG DOSE (2X325MG) PO PRN (20:37)
[2020-08-21] MEDS ORDERED: TAMSULOSIN 0.4 MG CAP PO SCH (21:00)
[2020-08-21] MEDS ORDERED: cefTRIAXone SOD 1 GM in D5W MINI-BAG PLUS 50 ML IV SCH (21:00)
--- NOTE | 2020-08-21 22:14 | HPEPDOC ---
[facility] Medical History & Physical Date of Admission August 21, 2020 Date of Service: August 21, 2020 History and Physical CHIEF COMPLAINT: fever and chills HISTORY OF PRESENT ILLNESS: 65-year-old female medical history of hyperlipidemia and kidney stones who was transferred to [facility] from [facility] for urology evaluation. Patient recently had left ureteral stent placement on July 17 and then stent removal August 11 due to kidney stones. She presented to [facility] for sepsis her chief complaint was fevers and chills at home for 1 day duration. Urinalysis there was positive. She had leukocytosis, was febrile to [address] abdomen and pelvis done there was positive for bilateral hydronephrosis however upon review by Dr. Lowry he noted only left hydroureteronephrosis. Patient currently states her pain is better she feels more comfortable but she does endorse a headache. She has no chest pain or shortness of breath. She was able to have her dinner tonight with no nausea or vomiting. She denies dysuria or flank pain currently. PAST MEDICAL/SURGICAL HISTORY: Kidney stones s/p L sided stent insertion and removal in July Hyperlipidemia Hysterectomy Appendectomy SOCIAL HISTORY: Denies alcohol use Denies tobacco use Denies illicit drug use Retired used to work at a [employer] FAMILY HISTORY: Reviewed and none contributory to this admission ALLERGIES: Please see below. REVIEW OF SYSTEMS: 10 point review of systems complete all negative otherwise stated in HPI HOME MEDICATIONS: Please see below. PHYSICAL EXAMINATION: Constitutional: Awake and alert, in no apparent distress, trying to sleep. ENT: Sclera are clear. Mucosa is moist. Respiratory: Lungs CTA bilaterally. No respiratory distress. Cardiovascular: RRR S1 and S2 are normal, no murmur Gastrointestinal: Abdomen is soft, non distended, non tender, BS present. Musculoskeletal: No lower extremity edema. RUE 5/5, LUE 5/5, BLE 5/5 Neurologic: No focal neurological deficit. Mental Status: A&O x3, normal affect Skin: Warm, dry LABORATORY DATA: See below. IMAGING: See chart MICROBIOLOGY: Please see below. ASSESSMENT 65-year-old female transferred from [facility] due to left hydronephrosis possi ble obstruction for evaluation by urology. Patient will be observed conservatively for now but may have to go to the OR tomorrow for stent placement by Dr. Lowry. # Left hydronephrosis with possible stricture or obstructing calcifications # Sepsis suspected to be secondary to UTI # Urinary tract infection # Hyperlipidemia PLAN Admit to PCU. Nothing by mouth after midnight. If continues to be febrile with increased leukocytosis Dr. Lowry may have to take her to the OR tomorrow for stent placement. In the meantime she'll be covered with IV Zosyn (received dose of ceftriaxone already). IV fluids NS for hydration. Blood cultures and urine culture ordered. Flomax started. Continue statin for HLD. DVT prophylaxis with TEDs. A Youse[facility] Hospitalist Vital Signs Vital Signs Date Time Temp Pulse Resp B/P (MAP) Pulse Ox O2 Delivery O2 Flow Rate FiO2 08/21/20 20:00 97.9 93 20 102/57 (72) 95 Room Air Laboratory Data Labs 24H Laboratory Tests 2 08/21/20 19:15: Immature Granulocyte % (Auto) 0.4, Neutrophils (%) (Auto) 88.4H, Lymphocytes (%) (Auto) 4.3L, Monocytes (%) (Auto) 6.7, Eosinophils (%) (Auto) 0.0, Basophils (%) (Auto) 0.2, Neutrophils # (Auto) 15.9H, Lymphocytes # (Auto) 0.8L, Monocytes # (Auto) 1.2H, Eosinophils # (Auto) 0.0, Basophils # (Auto) 0.0, Nucleated Red Blo od Cells % (auto) 0.0, Anion Gap 5L, Glomerular Filtration Rate 51.8, Calcium Level 9.2, Total Bilirubin 0.8, Aspartate Amino Transf (AST/SGOT) 11, Alanine Aminotransferase (ALT/SGPT) 15, Alkaline Phosphatase 73, Total Protein 7.0, Albumin 3.2, Albumin/Globulin Ratio 0.8L CBC/BMP Laboratory Tests 08/21/20 19:15 Home Medications Scheduled Atorvastatin Calcium (Atorvastatin Calcium) 10 Mg Tablet, 10 MG PO DAILY Allergies Coded Allergies: No Known Allergies (Unverified , 05/17/20) A-FIB/CHADSVASC A-FIB History Current/History of A-Fib/PAF?: No BEAU EASLEY MD August 21, 2020 22:14
[2020-08-21 22:16] LABS: APPEARANCE, URINE HAZY (CLEAR); BACTERIA, URINE AUTO 1+ (NEGATIVE); BILIRUBIN, URINE AUTO NEGATIVE (NEGATIVE); BLOOD, URINE BLOOD 2+ (NEGATIVE); COLOR, URINE YELLOW (YELLOW); GLUCOSE, URINE (UA) AUTO NEGATIVE (NEGATIVE); KETONE, URINE AUTO NEGATIVE (NEGATIVE); LEUKOCYTE ESTERASE, URINE AUTO 3+ (NEGATIVE); NITRITE, URINE AUTO NEGATIVE (NEGATIVE); PROTEIN, URINE AUTO 1+ mg/dL (NEGATIVE); RBC, URINE AUTO 3 /HPF (0-3); SPECIFIC GRAVITY URINE AUTO 1.004 (1.002-1.035); SQUAMOUS EPITHELIAL CELL UR AU 0 /HPF (0-6); UROBILINOGEN, URINE AUTO 0.2 mg/dL (0.0-2.0); WBC, URINE AUTO TNTC /HPF (0-3)
[2020-08-22] VITALS (7 sets, daily range): BP systolic 82–129; BP diastolic 47–75
[2020-08-22] MEDS: PIPERACILLIN/TAZOBACTAM SOD 4.5 GM in D5W MINI-BAG PLUS 50 ML IV SCH ×4 (00:02→19:10)
[2020-08-22] MEDS: ACETAMINOPHEN TAB 650MG DOSE (2X325MG) PO PRN ×2 (01:56→08:38)
[2020-08-22 08:13] LABS: BASO % 0.3 % (0.0-1.0); EOS # 0.1 10^3/uL (0.0-0.5); EOS % 0.5 % (0.0-3.0); HEMATOCRIT 29.8 % (36.0-47.0); LYMPH # 0.8 10^3/uL (1.5-5.0); LYMPH % 6.7 % (24.0-44.0); MEAN CORPUSCULAR HEMOGLOBIN 27.2 pg (27.0-33.0); MEAN CORPUSCULAR HGB CONC 30.2 g/dl (32.0-36.5); MONO # 0.8 10^3/uL (0.0-0.8); MONO % 6.7 % (2.0-8.0); NEUTROPHILS # 9.7 10^3/uL (1.5-8.5); NEUTROPHILS % 85.3 % (36.0-66.0); PLATELET COUNT, AUTOMATED 352 10^3/uL (150-450); RED BLOOD COUNT 3.31 10^6/uL (4.00-5.40); WHITE BLOOD COUNT 11.4 10^3/uL (4.0-10.0)
[2020-08-22 08:31] LABS: CALCIUM LEVEL 8.2 MG/DL (8.8-10.2); CREATININE FOR GFR 1.09 MG/DL (0.55-1.30); GLOMERULAR FILTRATION RATE 53.5 (>45)
[2020-08-22] MEDS: NS 1,000 ML IV SCH ×2 (08:31→18:00)
[2020-08-22] MEDS: ATORVASTATIN 10 MG TAB PO SCH (08:38)
[2020-08-22] MEDS ORDERED: EXCEDRIN MIGRAINE TABLET PO PRN (09:00)
--- NOTE | 2020-08-22 09:06 | IPNPDOC ---
Text Note Date of Service The patient was seen on 08/22/20. NOTE Subjective: Patient seen and examined at bedside. No acute overnight events reported. Patient has no new medical complaints this morning. She denies flank pain. She denies dysuria. Objective: General: NAD, lying comfortably in bed HEENT: NC/AT Chest: lungs CTA b/L Heart: +S1S2, RRR, no murmurs appreciated Abd: soft, NT, +BS Ext: no edema Psych: AAOx3 A/P: 65-year-old female transferred from [facility] for left hydro possible secondary to possible obstruction, with history of nephrolithiasis requiring surgical intervention ([facility], last month?). # Left hydronephrosis with possible stricture or obstructing calcifications - IV abx (Zosyn day #2) - urology c/s appreciated - plan for OR for ureteral stent placement today # Sepsis suspected to be secondary to UTI - as above, IV fluids, IV abx # Urinary tract infection - UA is positive, UCx pending # Hyperlipidemia - continue statin therapy #DVT prophylaxis - mechanical VS,Fishbone, I+O VS, Fishbone, I+O Laboratory Tests 08/21/20 19:15 08/22/20 07:50 Vital Signs Date Time Temp Pulse Resp B/P (MAP) Pulse Ox O2 Delivery O2 Flow Rate FiO2 08/22/20 07:31 98.2 78 18 102/54 (70) 94 Room Air I&O- Last 24 Hours up to 6 AM0 08/22/20 06:00 Intake Total 800 ml Output Total 1000 ml Balance -200 ml ELVER PEERS MD August 22, 2020 09:06
[2020-08-22] MEDS ORDERED: ONDANSETRON 4MG/2ML VIAL IV PRN ×2 (10:20→18:00)
[2020-08-22] MEDS ORDERED: ONDANSETRON 4MG/2ML VIAL As Ordered ONE ×2 (10:30→16:04)
[2020-08-22] MEDS: MORPHINE 2 MG/ML 1ML VIAL (J2270) IV PRN (11:07)
--- NOTE | 2020-08-22 12:27 | IPNPDOC ---
Subjective Review oF Systems Chief Complaint The patient is a 65-year-old female admitted with a reason for visit of Bilateral Hydronephrosis. Events since Last Encounter No acute events o/n. Patient notes her pain is much better. Denies n/v. No fevers o/n. Objective Physical Examination General Exam: Alert, Cooperative, No Acute Distress Chest Exam: Normal air movement Heart Exam: Positive: Rate Normal ABDOMEN EXAM: Soft; No: Tenderness Skin Exam: Nl turgor and temperature Neuro Exam: Normal Speech Psych Exam: Mental status NL, Mood NL Other physical findings no CVAT Vital Signs/I&O Vital Signs Date Time Temp Pulse Resp B/P (MAP) Pulse Ox O2 Delivery O2 Flow Rate FiO2 08/22/20 11:07 18 08/22/20 07:31 98.2 78 102/54 (70) 94 Room Air I&O- Last 24 Hours up to 6 AM 08/22/20 05:59 Intake Total 150 ml Output Total 1000 ml Balance -850 ml Laboratory Data Labs 24H Laboratory Tests 2 08/21/20 19:15: Immature Granulocyte % (Auto) 0.4, Neutrophils (%) (Auto) 88.4H, Lymphocytes (%) (Auto) 4.3L, Monocytes (%) (Auto) 6.7, Eosinophils (%) (Auto) 0.0, Basophils (%) (Auto) 0.2, Neutrophils # (Auto) 15.9H, Lymphocytes # (Auto) 0.8L, Monocytes # (Auto) 1.2H, Eosinophils # (Auto) 0.0, Basophils # (Auto) 0.0, Nucleated Red Blood Cells % (auto) 0.0, Anion Gap 5L, Glomerular Filtration Rate 51.8, Calcium Level 9.2, Total Bilirubin 0.8, Aspartate Amino Transf (AST/SGOT) 11, Alanine Aminotransferase (ALT/SGPT) 15, Alkaline Phosphatase 73, Total Protein 7.0, Albumin 3.2, Albumin/Globulin Ratio 0.8L 08/21/20 22:05: Urine Color YELLOW, Urine Appearance HAZY, Urine pH 6.0, Urine Specific [place] 1.004, Urine Protein 1+H, Urine Glucose (Auto)(UA) NEGATIVE, Urine Ketones (Auto) NEGATIVE, Urine Blood 2+H, Urine Nitrite NEGATIVE, Urine Bilirubin NEG ATIVE, Urine Urobilinogen 0.2, Urine Leukocyte Esterase (Auto) 3+H, Urine WBC (Auto) TNTCH, Urine RBC (Auto) 3, Urine Hyaline Casts (Auto) 0, Urine Bacteria (Auto) 1+H, Urine Squamous Epithelial Cells 0, Urine Sperm (Auto) 08/22/20 07:50: Immature Granulocyte % (Auto) 0.5, Neutrophils (%) (Auto) 85.3H, Lymphocytes (%) (Auto) 6.7L, Monocytes (%) (Auto) 6.7, Eosinophils (%) (Auto) 0.5, Basophils (%) (Auto) 0.3, Neutrophils # (Auto) 9.7H, Lymphocytes # (Auto) 0.8L, Monocytes # (Auto) 0.8, Eosinophils # (Auto) 0.1, Basophils # (Auto) 0.0, Nucleated Red Blood Cells % (auto) 0.0, Anion Gap 5L, Glomerular Filtration Rate 53.5, Calcium Level 8.2L CBC/BMP Laboratory Tests 08/21/20 19:15 08/22/20 07:50 Microbiology Microbiology 08/21/20 Blood Culture, Received Pending 08/21/20 Blood Culture, Received Pending 08/21/20 Urine Culture, Received Pending Assessment/Plan Date Seen The patient was seen on 08/22/20. Patient Summary This is a 65 y/o F admitted for sepsis due to a UTI and L hydro. Her prelim blood culture from [facility] is growing GNR. She is improving clinically w/ just IV abx. Despite this, I recommend taking her to the OR as I suspect she has a stricture in her distal ureter. I recommend cystoscopy, L ureteroscopy w/ balloon dilation, and L ureteral stent placement. This was discussed w/ the patient. I will obtain informed consent. Plan/VTE VTE Prophylaxis Ordered?: Yes VTE Exclusion Mechanical Proph: N/A:VTE Prophy Ordered Plan - continue broad spectrum abx and adjust based on cultures - to OR today - NPO - may resume regular diet postop GATITO RICE MD August 22, 2020 12:27
[2020-08-22] MEDS ORDERED: CONRAY-60 60% 50ML VIAL (Q9961) As Ordered ONE (15:47)
[2020-08-22] MEDS: NYSTATIN 500,000 U/5 ML SUSP UDC SS SCH ×2 (16:00→20:36)
[2020-08-22] MEDS ORDERED: propofoL 200 MG/20 ML VIAL As Ordered ONE (16:04)
[2020-08-22] MEDS ORDERED: LIDOCAINE 2% 100MG/5ML SDV (FOR ANES.) As Ordered ONE (16:04)
[2020-08-22] MEDS ORDERED: METOCLOPRAMIDE INJ 10MG/2ML VIAL (J2765 PER 1) As Ordered ONE (16:04)
[2020-08-22] MEDS ORDERED: MIDAZOLAM INJ 2MG/2ML VIAL (J2250 PER 1MG) As Ordered ONE (16:04)
[2020-08-22] MEDS ORDERED: fentaNYL 100 MCG/2 ML INJECTION (J3010) As Ordered ONE (16:04)
[2020-08-22] MEDS ORDERED: ZOSYN 4.5GM VIAL (J2543) As Ordered ONE (16:29)
[2020-08-22] MEDS ORDERED: oxyCODONE 5MG TAB PO PRN (18:00)
[2020-08-22] MEDS ORDERED: fentaNYL 100 MCG/2 ML INJECTION (J3010) IV PRN (18:00)
[2020-08-22] MEDS ORDERED: LR 1,000 ML IV SCH (18:00)
[2020-08-22] MEDS ORDERED: HYDROMORPHONE HCL 0.5 MG/ 0.5 ML SYRINGE (J1170 PER 1) IV PRN (18:00)
--- NOTE | 2020-08-22 18:01 | REP ---
INDICATION: LEFT STENT PLACEMENT. COMPARISON: 07/17/2020 TECHNIQUE: Two spot views of the abdomen and pelvis were obtained in my absence using a portable C-arm device during double pigtail stent placement on the left FINDINGS: Contrast is seen opacifying the left renal collecting system. A double pigtail catheter is seen on the left the proximal portion of which is in the renal pelvis and the distal portion of which is in the urinary bladder on the left. IMPRESSION: As above <Electronically signed by Sawyer Shultz > 08/22/20 0148
[2020-08-23] VITALS: BP 93/50
[2020-08-23] MEDS: PIPERACILLIN/TAZOBACTAM SOD 4.5 GM in D5W MINI-BAG PLUS 50 ML IV SCH ×4 (01:02→17:21)
[2020-08-23 04:00] VITALS: BP 116/51
[2020-08-23] MEDS: MORPHINE 2 MG/ML 1ML VIAL (J2270) IV PRN (04:18)
[2020-08-23 05:32] LABS: HEMATOCRIT 28.8 % (36.0-47.0); HEMOGLOBIN 8.7 g/dl (12.0-15.5); MEAN CORPUSCULAR HEMOGLOBIN 27.1 pg (27.0-33.0); MEAN CORPUSCULAR HGB CONC 30.2 g/dl (32.0-36.5); MEAN CORPUSCULAR VOLUME 89.7 fl (80.0-96.0); PLATELET COUNT, AUTOMATED 342 10^3/uL (150-450); RED BLOOD COUNT 3.21 10^6/uL (4.00-5.40); WHITE BLOOD COUNT 10.4 10^3/uL (4.0-10.0)
[2020-08-23 05:56] LABS: CALCIUM LEVEL 7.9 MG/DL (8.8-10.2); CREATININE FOR GFR 1.18 MG/DL (0.55-1.30); GLOMERULAR FILTRATION RATE 48.8 (>45); POTASSIUM SERUM 4.1 MEQ/L (3.5-5.1)
[2020-08-23 07:29] VITALS: BP 113/71
--- NOTE | 2020-08-23 08:08 | RO ---
OPERATIVE NOTE DATE OF OPERATION: 08/22/2020 PREOPERATIVE DIAGNOSIS: Left ureteral obstruction. POSTOPERATIVE DIAGNOSIS: Left ureteral stricture, left ureteral stones. PROCEDURE: Cystoscopy, left ureteroscopy with balloon dilatation of ureteral stricture and basket extraction of stones, left retrograde pyelogram with intraop interpretation of images, left ureteral stent placement. SURGEON: Freddie Lowry MD DIRECTOR OF OFFICIATING: None. ANESTHESIA: General. OPERATIVE INDICATIONS: This is a 65-year-old female who has had recent left ureteroscopy and stone procedures. At her last known procedure it did appear that she was developing a stricture in the left ureter. After removing her stent in the office a few weeks ago she presented back to the emergency room with fevers and chills and sepsis. CT scan was notable for moderate to severe left hydroureteronephrosis down to the level of what appeared to be a ureteral stricture. She was brought to the operating room today for treatment. DESCRIPTION OF PROCEDURE: The patient was brought to the operating room and general anesthesia was induced. Broad spectrum antibiotics had already been infused. She was placed in the dorsal lithotomy position and prepped and draped in usual sterile fashion. A cystoscope was inserted into the urethral meatus and advanced into the bladder. Guidewire was advanced up the left collecting system. I then went up the left collecting system with short semi-rigid ureteroscope and within the distal ureter there was a severe stricture with a pinpoint lumen. At this point I withdrew the ureteroscope and advanced the 5-Peruvian open-ended ureteral catheter over the wire into the left kidney. The wire was removed and I then aspirated approximately 30-40 mL of urine out of the left kidney. Of note, it did not appear to be purulent. I shot a retrograde pyelogram and notable for moderate severe left hydronephrosis with no extravasation. I then advanced the guidewire back up the left collecting system and removed the ureteral catheter. I then utilized a guidewire to advance a balloon dilator up the left collecting system. I then inflated the balloon to 15-Peruvian in the area of the stricture. I did this several times and left it inflated for about one minute each time. The balloon dilator was then removed. After performing the balloon dilation I did see 2-3 small stone fragments in the ureter and these were removed with a basket. I went back up the left collecting system with short semi-rigid ureteroscope. The stricture was dilated and I could easily advance the scope into the more proximal ureter. Of note, the ureter did appear unhealthy the area of the stricture raising concern that it will still stricture off at some point down the line once her stent is removed. I then removed the ureteroscope and utilized guidewire to advance 7-Peruvian x 22-32 cm JJ ureteral stent up the left collecting system. The wire was removed and there were adequate curls of the stent in left renal pelvis and in the bladder. The bladder was emptied of all fluids and this marked the conclusion of the procedure. The patient was taken out of the dorsal lithotomy position, awakened from anesthesia and transferred to the recovery room in stable condition. ESTIMATED BLOOD LOSS: 5 mL. COMPLICATIONS: None. SPECIMENS: Urine from left kidney for culture, ureteral stone fragments. PLAN: The patient will be kept in the hospital for treatment of sepsis due to urinary tract infection. I worry that she will form another stricture when her stent is removed. I will therefore likely recommend ureteral reimplantation for management of her stricture. RICHARD
[2020-08-23] MEDS: NYSTATIN 500,000 U/5 ML SUSP UDC SS SCH ×3 (08:32→20:33)
[2020-08-23] MEDS: ATORVASTATIN 10 MG TAB PO SCH (08:32)
[2020-08-23] MEDS ORDERED: DOCUSATE SODIUM 100MG CAPSULE PO PRN (08:45)
[2020-08-23] MEDS ORDERED: SENNA 8.6 MG TAB (SENOKOT) PO PRN (08:45)
--- NOTE | 2020-08-23 08:47 | IPNPDOC ---
Text Note Date of Service The patient was seen on 08/23/20. NOTE Subjective: Patient seen and examined at bedside. No acute overnight events reported. Patient has no new medical complaints this morning. She denies flank pain. She notes mild hematuria and dysuria. Objective: General: NAD, lying comfortably in bed HEENT: NC/AT Chest: lungs CTA b/L Heart: +S1S2, RRR, no murmurs appreciated Abd: soft, NT, +BS Ext: no edema Psych: AAOx3 A/P: 65-year-old female transferred from [facility] for left hydro possible secondary to possible obstruction, with history of nephrolithiasis requiring surgical intervention ([facility], last month?). # Left hydronephrosis with possible stricture or obstructing calcifications - s/p left ureteral stent POD #1 - IV abx (Zosyn day #3) - UCx pending - follow as per urology - assistance appreciated # Sepsis suspected to be secondary to UTI - as above, IV abx # Urinary tract infection - UA is positive, UCx pending # Hyperlipidemia - continue statin therapy #DVT prophylaxis - mechanical Dispo: Pending urine cultures, urology follow up, continue IV Abx VS,Fishbone, I+O VS, Fishbone, I+O Laboratory Tests 08/23/20 05:03 Vital Signs Date Time Temp Pulse Resp B/P (MAP) Pulse Ox O2 Delivery O2 Flow Rate FiO2 08/23/20 07:29 98.0 72 18 113/71 (85) 95 Room Air 08/23/20 04:28 2.0 I&O- Last 24 Hours up to 6 AM 08/23/20 06:00 Intake Total 2165.0 ml Output Total 500 ml Balance 1665.0 ml ELVER PERES MD August 23, 2020 08:47
[2020-08-23 12:00] VITALS: BP 108/62
[2020-08-23] MEDS: ACETAMINOPHEN TAB 650MG DOSE (2X325MG) PO PRN (13:24)
--- NOTE | 2020-08-23 13:32 | IPNPDOC ---
Subjective Review oF Systems Chief Complaint The patient is a 65-year-old female admitted with a reason for visit of Bilateral Hydronephrosis. Events since Last Encounter No acute events o/n. Patient has minimal L flank pain. No n/v. No f/c/ns. Objective Physical Examination General Exam: Alert, Cooperative, No Acute Distress Chest Exam: Normal air movement Heart Exam: Positive: Rate Normal ABDOMEN EXAM: Soft; No: Tenderness Skin Exam: Nl turgor and temperature Neuro Exam: Normal Speech Psych Exam: Mental status NL, Mood NL Vital Signs/I&O Vital Signs Date Time Temp Pulse Resp B/P (MAP) Pulse Ox O2 Delivery O2 Flow Rate FiO2 08/23/20 12:00 97.4 75 18 108/62 (77) 94 Room Air 08/23/20 04:28 2.0 I&O- Last 24 Hours up to 6 AM 08/23/20 05:59 Intake Total 2715.0 ml Output Total 500 ml Balance 2215.0 ml Laboratory Data Labs 24H Laboratory Tests 2 08/22/20 17:07: 08/23/20 05:03: Nucleated Red Blood Cells % (auto) 0.0, Anion Gap 5L, Glomerular Filtration Rate 48.8, Calcium Level 7.9L CBC/BMP Laboratory Tests 08/23/20 05:03 Microbiology Microbiology 08/22/20 Urine Culture, Received Pending 08/21/20 Blood Culture - Preliminary, Resulted No growth after 24 hours . All specim... 08/21/20 Blood Culture - Preliminary, Resulted No growth after 24 hours . All specim... 08/21/20 Urine Culture - Final, Complete Assessment/Plan Date Seen The patient was seen on 08/23/20. Patient Summary This is a 65 y/o F admitted for sepsis due to a UTI and L hydro, POD1 s/p cysto, L ureteroscopy w/ balloon dilation of a ureteral stricture, basket extraction of stone fragments, and L ureteral stent placement. The patient had a very narrow stricture in her distal L ureter causing almost complete obstruction to the L kidney. This was dilated w/ a balloon and a stent was placed, but I suspect that once her stent is removed, this will recur. I will therefore recommend a L ureteral reimplant to be done at some point in the next few wks. This was discussed in detail w/ the patient. Plan/VTE VTE Prophylaxis Ordered?: Yes VTE Exclusion Mechanical Proph: N/A:VTE Prophy Ordered Plan - continue broad spectrum abx and adjust based on culture results (will need to obtain final blood culture results from [facility] if the ones here remain negative) - will plan to keep the patient's stent in place - my office will arrange f/u to discuss a L ureteral reimplant for treatment of her recurrent L ureteral stricture GATITO RICE MD August 23, 2020 13:32
[2020-08-23 16:00] VITALS: BP 106/56
[2020-08-23 20:00] VITALS: BP 135/87
[2020-08-24] VITALS: BP 138/78
[2020-08-24 04:00] VITALS: BP 138/65
[2020-08-24 06:19] LABS: HEMATOCRIT 31.3 % (36.0-47.0); HEMOGLOBIN 9.4 g/dl (12.0-15.5); MEAN CORPUSCULAR HEMOGLOBIN 27.1 pg (27.0-33.0); MEAN CORPUSCULAR VOLUME 90.2 fl (80.0-96.0); PLATELET COUNT, AUTOMATED 404 10^3/uL (150-450); RED BLOOD COUNT 3.47 10^6/uL (4.00-5.40); WHITE BLOOD COUNT 7.6 10^3/uL (4.0-10.0)
[2020-08-24] MEDS: PIPERACILLIN/TAZOBACTAM SOD 4.5 GM in D5W MINI-BAG PLUS 50 ML IV SCH ×3 (06:21)
[2020-08-24 06:30] LABS: CALCIUM LEVEL 8.6 MG/DL (8.8-10.2); CREATININE FOR GFR 1.04 MG/DL (0.55-1.30); GLOMERULAR FILTRATION RATE 56.4 (>45); POTASSIUM SERUM 3.8 MEQ/L (3.5-5.1)
[2020-08-24 08:00] VITALS: BP 134/82
[2020-08-24] MEDS: ATORVASTATIN 10 MG TAB PO SCH (08:27)
[2020-08-24] MEDS: NYSTATIN 500,000 U/5 ML SUSP UDC SS SCH (08:27)
[2020-08-24 09:19] LABS: C REACTIVE PROTEIN QUANTITATIV 8.98 MG/DL (0.00-0.30)
[2020-08-24] MEDS ORDERED: AUGM875T28 PO (09:25)
--- NOTE | 2020-08-24 09:30 | DS.PDOC ---
Discharge Summary General Date of Admission August 21, 2020 at 18:01 Date of Discharge 08/24/20 Specialist/Consultants Involve urology Discharge Summary PROCEDURES PERFORMED DURING STAY: left ureteral stent ADMITTING DIAGNOSES: #ureteral obstruction #UTI #left hydronephrosis SECONDARY DIAGNOSES: #Kidney stones s/p L sided stent insertion and removal in July #Hyperlipidemia #Hysterectomy #Appendectomy DISCHARGE DIAGNOSES: #recurrent left ureteral stricture COMPLICATIONS/CHIEF COMPLAINT: Bilateral Hydronephrosis. HISTORY OF PRESENT ILLNESS: 65-year-old female with past medical history oh nephrolithiasis/ureteral stricture s/p recent ureteral stent placement, was transferred to [facility] from [facility] for urology evaluation. Patient recently had left ureteral stent placement on July 17 and then stent removal August 11. She originally presented with a chief complaint of fevers and chills at home for 1 day duration. Urinalysis there was positive. She had leukocytosis, was febrile to [address] abdomen and pelvis done there was positive for bilateral hydronephrosis however upon review by Dr. Lowry he noted only left hydroureteronephrosis. HOSPITAL COURSE: Patient was admitted for further evaluation and treatment. Patient was seen in consultation by urology. She did undergo placement of left ureteral stent. Her symptoms improved. She received IV antibiotics (Zosyn). While in the hospital her cultures were negative including blood and urine cultures. However, her blood and urine cultures from [facility] showed Escherichia coli. Her antibiotics were adjusted based on sensitivities. Further discussion with urology, with recommendations for outpatient follow-up. Hospital stay was otherwise unremarkable.. She was septic on admission, which also resolved. DISCHARGE MEDICATIONS: Please see below. ALLERGIES: Please see below. PHYSICAL EXAMINATION ON DISCHARGE: VITAL SIGNS: Please see below. General: NAD, sitting comfortably at edge of bed HEENT: NC/AT Chest: lungs CTA b/L Heart: +S1S2, RRR, no murmurs appreciated Abd: soft, NT, +BS Ext: no edema Psych: AAOx3 LABORATORY DATA: Please see below. ACTIVITY: [As tolerated]. DISPOSITION: Discharge home. DISCHARGE INSTRUCTIONS: 1. PCP in 3-5 days 2. Urology as scheduled or in 7 days. DISCHARGE CONDITION: [Stable]. TIME SPENT ON DISCHARGE: 35 minutes. Vital Signs/I&Os Vital Signs Date Time Temp Pulse Resp B/P (MAP) Pulse Ox O2 Delivery O2 Flow Rate FiO2 5/13/21 08:00 97.7 76 18 134/82 (99) 95 Room Air 08/23/20 04:28 2.0 I&O- Last 24 Hours up to 6 AM 08/24/20 05:59 Intake Total 1370 ml Output Total 800 ml Balance 570 ml Laboratory Data Labs 24H Laboratory Tests 2 08/24/20 05:08: Nucleated Red Blood Cells % (auto) 0.0, Anion Gap 4L, Glomerular Filtration Rate 56.4, Calcium Level 8.6L, C-Reactive Protein, Quantitative 8.98H CBC/BMP Laboratory Tests 08/24/20 05:08 Microbiology Microbiology 08/22/20 Urine Culture, Received Pending 08/21/20 Blood Culture - Preliminary, Resulted No Growth after 48 hours. All Specime... 08/21/20 Blood Culture - Preliminary, Resulted No Growth after 48 hours. All Specime... 08/21/20 Urine Culture - Final, Complete Discharge Medications Scheduled Amoxicillin/Potassium Clav (Augmentin 875-125 Tablet) 1 Each Tablet, 1 TAB PO BID Atorvastatin Calcium (Atorvastatin Calcium) 10 Mg Tablet, 10 MG PO DAILY, (Reported) Allergies Coded Allergies: No Known Allergies (Unverified , 05/17/20) ELVER PERES MD August 24, 2020 09:30
[2020-08-24 09:59] LABS: ERYTHROCYTE SEDIMENTATION RATE 75 mm/hr (0-30)
== END 2020-08-24 11:09 | disposition home or self-care (01) | DRG 661 ==
LOC: M PCU 18:01
PROVIDERS: ADMIT Internal Medicine; ATTEND Internal Medicine
PROC: 0TC78ZZ Extirpation of Matter from Left Ureter, Via Natural or Artificial Opening Endoscopic (ICD-10-PCS; 2020-08-22)
PROC: 0T778DZ Dilation of Left Ureter with Intraluminal Device, Via Natural or Artificial Opening Endoscopic (ICD-10-PCS; principal; 2020-08-22 16:30)
DX: N13.1 Hydronephrosis with ureteral stricture, not elsewhere classified (principal); E78.5 Hyperlipidemia, unspecified

== ENCOUNTER 2020-09-01 17:08 | Inpatient (IN) | payer MEDICARE ==
[~2020-09-01] VITALS: Ht 160 cm; Wt 89.0 kg
[~2020-09-01 17:08] MED LIST changes: +AUGM875T28 PO; -TAMSULOSIN 0.4 MG CAP PO SCH
[2020-09-01 19:35] VITALS: BP 142/76
[2020-09-01] MEDS ORDERED: NS 1,000 ML IV SCH (19:45)
[2020-09-01] MEDS ORDERED: MAALOX 30 ML SUSP *UDC PO PRN (19:45)
[2020-09-01] MEDS ORDERED: MOM 30ML SUSPENSION UDC PO PRN (19:45)
--- NOTE | 2020-09-01 19:48 | HPEPDOC ---
[facility] Medical History & Physical Date of Admission September 01, 2020 Date of Service: September 01, 2020 Primary Care Physician: Neal Schafer MD [facility] Attending Physician: MARILIA HUMPHREY MD History and Physical TIME OF SERVICE: 825pm REASON FOR TRANSFER: Uro eval CHIEF COMPLAINT: fever HISTORY OF PRESENT ILLNESS: This 65 yr old F had a ureteral stent placed on August 21; on August 31 she presented to [facility] w c/o of f/c/n/v and suprapubic pain and was found to have a TMAX of 102.6 w HR in the 110s, WBC of 15.1, Hg of 8.9 and lactic acid of 2. Cr was 1.1 the UA was positive for blood, RBCS, WBCs, Leuk Est & Bacteria while the the CT showed left ureteral obstruction, confirmed the presence of the left UPJ stent, left sided pyelonephritis and multiple non- obstructing right renal calculi; she was initially admitted to the medical floor but bc of worsening fever and chills despite switching her abx from Ceftriaxone to Zosyn transfer was requested for Uro eval. Currently she is c/o feeling cold and shaky. 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 Father had colon cancer. 6 Brothers and Father had nephrolithiasis ALLERGIES: Please see below. HOME MEDICATIONS: Please see below. PHYSICAL EXAMINATION: Vital Signs Date Time Temp Pulse Resp B/P (MAP) Pulse Ox O2 Delivery O2 Flow Rate FiO2 09/01/20 19:35 98.0 96 22 142/76 (98) 96 Room Air GENERAL APPEARANCE: well nourished and developed / appears to be feeling unwell HEENT: EOMI / MM pink but dry CARDIOVASCULAR: RRR/NMRG / no LE edema LUNGS: CTAB on RA ABDOMEN: contour obese /soft & NT MUSCULOSKELETAL: NCAT / NIKOS x 4 INTEGUMENT: flushed and diphoretic NEUROLOGICAL: CN 2-12 intact / speech not dysarthric PSYCHIATRIC: A&O x 3 /able to understand and follow all commands LABORATORY DATA: see HPI IMAGING: see HPI MICROBIOLOGY: COVID neg at [facility] ASSESSMENT: is a 65 yr old w nephrolithiasis w ureteral stents, DLP,& diverticulosis who was diagnosed w sepsis 2/2 pyelonephritis and transferred here for Uro tika. PLAN: 1 Sepsis 2/2 Pyelonephrtis Plan: admit to medical floor bc qSOFA score = 0 points = low risk / telemetry / c/w Zosyn and IVF / request final blood cx, UA culture results from [facility] / Acetaminophen PRN for fever / target MAP at of least 65 to 70 / f/u Is and Os with target UOP of at least 0.5 ml/kg/H / f/u FSBS w target serum glucose 140- 180 while acutely ill / the day time team may consult to see if the ureteral stents need to be exchanged 2 NN Anemia Plan: f/u CBC, iron studies and stool occult 3 Hypokalemia Plan: replete K and f/u Mg 4 DLP Plan: statin 5 Obesity Complicates care Plan: f/u A1C. / the patient can f/u w his or her PCP for sleep apnea screening, engineering secretary consult, to discuss staring Saxenda, which is indicated in patients with a BMI >27 with co-existing DM, HTN or dyslipidemia to help with weight control as an adjunct to exercise / recommend cardiovascular exercise for 40 min 4-5 days a week DVT px w Lovenox Dispo: home after at least 2 midnights stay Home Medications Scheduled Atorvastatin Calcium (Atorvastatin Calcium) 10 Mg Tablet, 10 MG PO DAILY Clotrimazole (Clotrimazole) 10 Mg Veronika, 10 MG PO 5XD STARTED 08/28/20 X 7 DAYS L. Rhamnosus GG/Inulin (Culturelle Capsule) 1 Each Cap.sprink, 1 TAB PO DAILY Multivitamin,Therapeutic (Thera-Tabs) 1 Each Tablet, 1 TAB PO DAILY Scheduled PRN Acetaminophen (Acetaminophen) 500 Mg Tablet, 500 MG PO Q6H PRN for PAIN Allergies Coded Allergies: No Known Allergies (Unverified , 05/17/20) A-FIB/CHADSVASC A-FIB History Current/History of A-Fib/PAF?: No Current PO Anticoag Therapy: No MARILIA HUMPHREY MD September 01, 2020 19:48
[2020-09-01] MEDS ORDERED: CULTCAP2 PO (19:50)
[2020-09-01] MEDS ORDERED: ACET-683 PO (19:50)
[2020-09-01] MEDS ORDERED: CLOT10TR PO (19:50)
[2020-09-01] MEDS ORDERED: THERTAB52 PO (19:51)
[2020-09-01 20:18] LABS: ABG BASE EXCESS -4.9 (-2.0-2.0); ABG HCO3 17.2 MEQ/L (22.0-26.0); ABG O2 SATURATION 97.1 % (95.0-99.0); ABG PARTIAL PRESSURE CO2 22.9 mmHg (35.0-45.0); ABG PARTIAL PRESSURE O2 89.6 mmHg (75.0-100.0); ABG STANDARD HCO3 20.4 MEQ/L (22.0-26.0); ABG TOTAL CO2 17.9 MEQ/L (23.0-31.0); ABG pH (ARTERIAL) 7.493 UNITS (7.350-7.450)
[2020-09-01 20:18] LABS: HEMOGLOBIN 9.4 g/dl (12.0-15.5); MEAN CORPUSCULAR HGB CONC 30.3 g/dl (32.0-36.5); MEAN CORPUSCULAR VOLUME 89.1 fl (80.0-96.0); PLATELET COUNT, AUTOMATED 380 10^3/uL (150-450); RED BLOOD COUNT 3.48 10^6/uL (4.00-5.40); WHITE BLOOD COUNT 12.3 10^3/uL (4.0-10.0)
[2020-09-01] MEDS: ACETAMINOPHEN TAB 650MG DOSE (2X325MG) PO PRN (20:18)
[2020-09-01 20:29] LABS: INR 1.05; PROTHROMBIN TIME 13.9 SECONDS (12.5-14.3)
[2020-09-01 20:39] LABS: ALBUMIN 2.6 GM/DL (3.2-5.2); ALT/SGPT 12 U/L (12-78); BILIRUBIN,TOTAL 0.3 MG/DL (0.2-1.0); BLOOD UREA NITROGEN 8 MG/DL (7-18); CALCIUM LEVEL 7.8 MG/DL (8.8-10.2); CARBON DIOXIDE LEVEL 21 MEQ/L (21-32); CHLORIDE LEVEL 111 MEQ/L (98-107); CREATININE FOR GFR 0.96 MG/DL (0.55-1.30); GLOMERULAR FILTRATION RATE > 60.0 (>45); GLUCOSE, FASTING 108 MG/DL (70-100); POTASSIUM SERUM 3.2 MEQ/L (3.5-5.1); SODIUM LEVEL 139 MEQ/L (136-145)
[2020-09-01] MEDS ORDERED: ONDANSETRON 4 MG TAB PO PRN (20:55)
[2020-09-01] MEDS ORDERED: cefTRIAXone SOD 1 GM in D5W MINI-BAG PLUS 50 ML IV SCH (22:00)
[2020-09-02] MEDS ORDERED: KETOROLAC TROMETHAMINE 10 MG TAB PO SCH
[2020-09-02] MEDS: ACETAMINOPHEN TAB 650MG DOSE (2X325MG) PO PRN ×3 (02:21→14:25)
[2020-09-02] MEDS ORDERED: POTASSIUM CHLORIDE 10 MEQ SR TABLET PO ONE ×2 (05:10→09:00)
[2020-09-02 06:08] VITALS: BP 110/63
[2020-09-02 07:22] LABS: HEMATOCRIT 31.3 % (36.0-47.0); HEMOGLOBIN 9.6 g/dl (12.0-15.5); MEAN CORPUSCULAR HGB CONC 30.7 g/dl (32.0-36.5); MEAN CORPUSCULAR VOLUME 87.9 fl (80.0-96.0); PLATELET COUNT, AUTOMATED 343 10^3/uL (150-450); RED BLOOD COUNT 3.56 10^6/uL (4.00-5.40); WHITE BLOOD COUNT 11.2 10^3/uL (4.0-10.0)
[2020-09-02 07:52] LABS: BLOOD UREA NITROGEN 7 MG/DL (7-18); CALCIUM LEVEL 8.1 MG/DL (8.8-10.2); CARBON DIOXIDE LEVEL 24 MEQ/L (21-32); CHLORIDE LEVEL 109 MEQ/L (98-107); CREATININE FOR GFR 0.87 MG/DL (0.55-1.30); GLOMERULAR FILTRATION RATE > 60.0 (>45); GLUCOSE, FASTING 92 MG/DL (70-100); MAGNESIUM LEVEL 1.5 MG/DL (1.8-2.4); SODIUM LEVEL 139 MEQ/L (136-145)
[2020-09-02] MEDS: PIPERACILLIN/TAZOBACTAM SOD 3.375 GM in D5W MINI-BAG PLUS 50 ML IV SCH ×3 (08:35→21:11)
[2020-09-02] MEDS: ATORVASTATIN 10 MG TAB PO SCH (08:35)
[2020-09-02] MEDS: ENOXAPARIN 40MG/0.4ML SYRINGE (J1650 PER 10MG) SC SCH (08:36)
[2020-09-02] MEDS ORDERED: MAG SULF 1GM/100ML (MAG RUN) 1 GM in IV 1 EA IV ONE (09:00)
[2020-09-02] MEDS: POTASSIUM CHLORIDE INJ 40 MEQ in NS 1,000 ML IV SCH (12:14)
--- NOTE | 2020-09-02 13:20 | IPNPDOC ---
Subjective Date Seen The patient was seen on 09/02/20. Subjective Chief Complaint/HPI Having low grade fever here. continues to have diarrhea watery no blood in it. Poor appetite. Objective Physical Examination General Exam: Positive: Alert, Cooperative, No Acute Distress Eye Exam: Positive: PERRLA, Conjunctiva & lids normal, EOMI; Negative: Sclera icteric Neck Exam: Positive: Supple; Negative: JVD, thyromegaly Chest Exam: Positive: Clear to auscultation, Normal air movement Heart Exam: Positive: Rate Normal, Regular Rhythm, Normal S1, Normal S2; Negative: Murmurs, Rubs Abdomen Exam: Positive: BS Hyperactive, Soft; Negative: Tenderness, Hepatospenomegaly Extremity Exam: Negative: Clubbing, Cyanosis, Edema Assessment /Plan Assessment This is a 65 yr old with past medical history of nephrolithiasis, recurrent left ureteral stones with history of laser lithotripsy, stone extraction and placement of the left ureteral stent several times since May 2020 , hyperlipidemia, hypertension, last admitted here from August 21 to August 24, when she had left hydroureteronephrosis and pyelonephritis. She was found to again have left ureteral stone and left ureteral stricture status post left ureteroscopy an d balloon dilatation of ureteral stricture and basket extraction of stones and placement of left ureteral stent on 08/22/2020. Prior to this in July 2020. She had left ureteral stent placement and removal. She has been on antibiotics since the April of this year. On 09/01/2020 she presented to the emergency room of [facility] for fever, chills and diarrhea , back pain and abd ominal pain. She was diagnosed with pyelonephritis, sepsis likely antibiotic related diarrhea and transferred here for uro-logical evaluation. Pyelonephritis with ureteral stent in place. continue with zosyn Hypomagnesemia replaced. Hypokalemia replaced Diarrhea will send GI panel lactobacillus. Anemia DLP statin Obesity Follow up with PMD. Plan/VTE VTE Prophylaxis Ordered?: Yes VS, I&O, 24H, Fishbone Vital Signs/I&O Vital Signs Date Time Temp Pulse Resp B/P (MAP) Pulse Ox O2 Delivery O2 Flow Rate FiO2 09/02/20 06:08 98.6 91 19 110/63 (79) 94 Room Air I&O- Last 24 Hours up to 6 AM 09/02/20 06:00 Intake Total 715 ml Balance 715 ml Laboratory Data 24H LABS Laboratory Tests 2 09/01/20 20:04: Nucleated Red Blood Cells % (auto) 0.0, Prothrombin Time 13.9, Prothromb Time International Ratio 1.05, Activated Partial Thromboplast Time 36.0, Anion Gap 7L, Glomerular Filtration Rate > 60.0, Lactic Acid Level 1.3, Calcium Level 7.8L, Total Bilirubin 0.3, Aspartate Amino Transf (AST/SGOT) 10, Alanine Aminotransferase (ALT/SGPT) 12, Alkaline Phosphatase 68, Total Protein 6.0L, Albumin 2.6L, Albumin/Globulin Ratio 0.8L 09/01/20 20:10: Blood Gas Bicarbonate Standard 20.4L, Arterial Blood pH 7.493H, Arterial Blood Partial Pressure CO2 22.9L, Arterial Blood Partial Pressure O2 89.6, Arterial Blood Total CO2 17.9L, Arterial Blood HCO3 17.2L, Arterial Blood Base Excess -4.9L, Arterial Blood Oxygen Saturation 97.1 09/02/20 00:10: Bedside Glucose (Misc Panel) 123H 09/02/20 04:58: Methicillin-Resist S.aureus DNA PCR NOT DETECTED 09/02/20 04:59: Urine Color YELLOW, Urine Appearance CLEAR, Urine pH 6.0, Urine Specific [place] 1.008, Urine Protein 1+H, Urine Glucose (UA) NEGATIVE, Urine Ketones NEGATIVE, Urine Blood 3+H, Urine Nitrite NEGATIVE, Urine Bilirubin NEGATIVE, Urine Urobilinogen 0.2, Urine Leukocyte Esterase 1+H, Urine WBC (Auto) 5H, Urine RBC (Auto) 100H, Urine Hyaline Casts (Auto) 0, Urine Bacteria (Auto) NEGATIVE, Urine Squamous Epithelial Cells 0, Urine Mucus (Auto) SMALL, Urine Sperm (Auto) 09/02/20 05:21: Bedside Glucose (Misc Panel) 106 09/02/20 06:50: Nucleated Red Blood Cells % (auto) 0.0, Anion Gap 6L, Glomerular Filtration Rate > 60.0, Calcium Level 8.1L, Magnesium Level 1.5L 09/02/20 11:34: Bedside Glucose (Misc Panel) 135H CBC/BMP Laboratory Tests 09/01/20 20:04 09/02/20 06:50 Microbiology Microbiology 09/02/20 Urine Culture, Received Pending 09/01/20 Blood Culture, Received Pending LATRICIA WHITMORE MD September 02, 2020 13:20
[2020-09-02 14:00] VITALS: BP 121/78
--- NOTE | 2020-09-02 16:12 | SMCUROLCON ---
Urology Consultation General Date of Consultation 09/02/20 Reason For Consultation This patient is seen for Urosepsis. History of Present Illness The patient is a 65-year-old female with a past medical history for numerous and recurrent renal calculi. On August 21, she had a ureteroscopic treatment of ureteral dilation and extraction of numeropus stones from the left ureter. She had a very severe stricture there that was dilated before the stones could be removed. A stent was left indwelling. She says she was doing well until when, about 3pm, she started having a temp and more abdominal aching and stent discomfort. Whe was at [facility] for a day on IV antiabiotics before she was transfered here to the medical service. A CT done at [facility] showed stones in the right kidney, but none were obstructiong. The stent was in the correct position in the left kidney and there was some residual dilation of the left renal pelvis. Urology consult was called to help manage her infection especially since there was concern about the left renal dilation. Past Medical History Medical History renal calculi diverticulosis DLP Surgical Hstory appendectomy numerous ureteroscopic procedures hysterectomy Social History * Smoker: non-smoker Alcohol: Denies Drugs: denies Medications Current Medications Current Medications Medications (Trade) Dose Ordered Sig/Lucia Route PRN Reason Start Time Stop Time Status Last Admin Dose Admin Acetaminophen (Tylenol Tab) 650 mg Q4H PRN PO PAIN OR FEVER 09/01/20 19:45 09/02/20 14:25 Al Hydrox/Mg Hydrox/Simethicone (Mylanta) 30 ml DAILY PRN PO DYSPEPSIA 09/01/20 19:45 Atorvastatin Calcium (Lipitor) 10 mg DAILY PO 09/02/20 09:00 09/02/20 08:35 Ceftriaxone Sodium 1 gm/ Dextrose 50 ml @ 100 mls/hr Q24H IV 09/01/20 22:00 09/02/20 05:05 DC 09/01/20 21:21 Enoxaparin Sodium (Lovenox) 40 mg DAILY SC 09/02/20 09:00 09/02/20 08:36 Home Med (Med Rec Complete!) ASDIRECTED XX 09/01/20 19:55 09/01/20 19:53 DC Ketorolac Tromethamine (ToRADol) 10 mg Q6H PO 09/02/20 00:00 09/02/20 02:05 DC 09/01/20 23:38 Lactobacillus Acidophilus (Bacid) 1 ea WM PO 09/02/20 18:00 Magnesium Hydroxide (Milk Of Magnesia) 30 ml DAILY PRN PO CONSTIPATION 09/01/20 19:45 Ondansetron HCl (Zofran) 4 mg Q4HP PRN PO NAUSEA OR VOMITING 09/01/20 20:55 09/01/20 21:20 Piperacillin Sod/ Tazobactam Sod 3.375 gm/Dextrose 50 ml @ 50 mls/hr Q6H IV 09/02/20 09:00 09/02/20 08:35 Potassium Chloride 40 meq/ Sodium Chloride 1,020 ml @ 70 mls/hr [id number] IV 09/02/20 11:00 09/02/20 12:14 Sodium Chloride 1,000 ml @ 70 mls/hr [id number] IV 09/01/20 19:45 09/02/20 08:20 DC 09/01/20 20:18 Allergies Allergies: Coded Allergies: No Known Allergies (Unverified , 05/17/20) Review of Systems General: Reports: Chills, Malaise Constitutional: Reports: Fever, Weakness, Malaise; Denies: Chills, Sweats Eyes: Denies: Pain, Vision change ENT: Denies: Head Aches, Sore Throat, Epistaxis Skin: Denies: Rash, Lesions, Breakdown, Nail Changes Pulmonary: Denies: Dyspnea, Cough Cardiovascular: Denies Chest Pain, Denies Palpitations Gastrointestinal: Reports: Diarrhea Genitourinary: Reports: Dysuria Hematologic: Denies: Bruising, Bleeding Excessively Endocrine: Denies: Polydipsia, Polyphagia, Polyuria Musculoskeletal: Denies: Neck Pain, Back Pain Neurological: Denies: Weakness, Numbness, Incoordination, Change in Speech Psych: Reports: Mood Normal; Denies: Anxiety, Depression Physical Examination General Exam: Cooperative, Mild Distress EYE EXAM: PERRLA, Conjunctiva & lids normal, EOMI; No: Sclera icteric ENT EXAM: Atraumatic, Mucous membr. moist/pink, Pharynx Normal Neck Exam: Supple; No: JVD, thyromegaly Chest Exam: Clear to auscultation, Normal air movement Heart Exam: Rate Normal, Regular Rhythm, Normal S1, Normal S2; No: Murmurs, Rubs Abdomen Exam: Normal Bowel Sounds, Soft; No: Tenderness, Hepatospenomegaly Extremity Exam: Normal Pulses; No: Clubbing, Cyanosis, Edema Skin Exam: Nl turgor and temperature; No: Rash, Breakdown Vital Signs/I&O Vital Signs Date Time Temp Pulse Resp B/P (MAP) Pulse Ox O2 Delivery O2 Flow Rate FiO2 09/02/20 06:08 98.6 91 19 110/63 (79) 94 Room Air I&O- Last 24 Hours up to 6 AM 09/02/20 06:00 Intake Total 715 ml Balance 715 ml Laboratory Data 24H Labs Laboratory Tests 2 09/01/20 20:04: Nucleated Red Blood Cells % (auto) 0.0, Prothrombin Time 13.9, Prothromb Time International Ratio 1.05, Activated Partial Thromboplast Time 36.0, Anion Gap 7L, Glomerular Filtration Rate > 60.0, Lactic Acid Level 1.3, Calcium Level 7.8L, Total Bilirubin 0.3, Aspartate Amino Transf (AST/SGOT) 10, Alanine Aminotransferase (ALT/SGPT) 12, Alkaline Phosphatase 68, Total Protein 6.0L, Albumin 2.6L, Albumin/Globulin Ratio 0.8L 09/01/20 20:10: Blood Gas Bicarbonate Standard 20.4L, Arterial Blood pH 7.493H, Arterial Blood Partial Pressure CO2 22.9L, Arterial Blood Partial Pressure O2 89.6, Arterial Blood Total CO2 17.9L, Arterial Blood HCO3 17.2L, Arterial Blood Base Excess - 4.9L, Arterial Blood Oxygen Saturation 97.1 09/02/20 00:10: Bedside Glucose (Misc Panel) 123H 09/02/20 04:58: Methicillin-Resist S.aureus DNA PCR NOT DETECTED 09/02/20 04:59: Urine Color YELLOW, Urine Appearance CLEAR, Urine pH 6.0, Urine Specific [place] 1.008, Urine Protein 1+H, Urine Glucose (UA) NEGATIVE, Urine Ketones NEGATIVE, Urine Blood 3+H, Urine Nitrite NEGATIVE, Urine Bilirubin NEGATIVE, Urine Urobilinogen 0.2, Urine Leukocyte Esterase 1+H, Urine WBC (Auto) 5H, Urine RBC (Auto) 100H, Urine Hyaline Casts (Auto) 0, Urine Bacteria (Auto) NEGATIVE, Urine Squamous Epithelial Cells 0, Urine Mucus (Auto) SMALL, Urine Sperm (Auto) 09/02/20 05:21: Bedside Glucose (Misc Panel) 106 09/02/20 06:50: Nucleated Red Blood Cells % (auto) 0.0, Anion Gap 6L, Glomerular Filtration Rate > 60.0, Calcium Level 8.1L, Magnesium Level 1.5L 09/02/20 11:34: Bedside Glucose (Misc Panel) 135H CBC/BMP Laboratory Tests 09/01/20 20:04 09/02/20 06:50 Microbiology Microbiology 09/02/20 Urine Culture, Received Pending 09/01/20 Blood Culture, Received Pending Assessment Pt may have a sepsis after ureologic intervention for renal calculi, but she also has extensive diverticulosis and diarrhea, so early diverticulitis may also be a possibility. WBC and temp are now both recovering. Plan Plan to continue Zosyn and monitor temp and WBC. I would like to see the CD of the CT scan, but so far I have not been able to find it. I doubt if the ureteral stent is obstructed, but if her condition does not continue to improve, this may have to be changed. I will continue to foll her with you. Time Spent on Consult: Time Spent / Consult (Minutes): 55 ALBERTO SANTOS MD September 02, 2020 15:56
[2020-09-02] MEDS: LACTOBACILLUS ACIDOPHILUS CAP (BACID) PO SCH (18:13)
[2020-09-02] MEDS ORDERED: MORPHINE 2 MG/ML 1ML VIAL (J2270) IV PRN (20:20)
[2020-09-02 22:00] VITALS: BP 147/94
[2020-09-02] MEDS: VANCOMYCIN ORAL SOL 250MG/5ML ORAL SYRINGE PO SCH (23:46)
[2020-09-03] MEDS: NYSTATIN 500,000 U/5 ML SUSP UDC SS SCH ×5 (01:10→20:52)
[2020-09-03] MEDS: MORPHINE 2 MG/ML 1ML VIAL (J2270) IV PRN ×2 (01:10→21:09)
[2020-09-03] MEDS: POTASSIUM CHLORIDE INJ 40 MEQ in NS 1,000 ML IV SCH ×2 (05:04→21:08)
[2020-09-03] MEDS: VANCOMYCIN ORAL SOL 250MG/5ML ORAL SYRINGE PO SCH ×4 (05:04→23:59)
[2020-09-03 06:00] VITALS: BP 140/77
[2020-09-03] MEDS: ENOXAPARIN 40MG/0.4ML SYRINGE (J1650 PER 10MG) SC SCH (08:34)
[2020-09-03] MEDS: ATORVASTATIN 10 MG TAB PO SCH (08:34)
[2020-09-03] MEDS: LACTOBACILLUS ACIDOPHILUS CAP (BACID) PO SCH ×3 (08:34→17:40)
--- NOTE | 2020-09-03 09:14 | IPNPDOC ---
Subjective Date Seen The patient was seen on 09/03/20. Subjective Chief Complaint/HPI Diarrhea better, abdominal pain better, no further fever. Over feels much better than yesterday, appetite is back. Objective Physical Examination General Exam: Positive: Alert, Cooperative, No Acute Distress Eye Exam: Positive: PERRLA, Conjunctiva & lids normal, EOMI; Negative: Sclera icteric ENT Exam: Positive: Atraumatic, Mucous membr. moist/pink, Pharynx Normal Neck Exam: Positive: Supple; Negative: JVD, thyromegaly Chest Exam: Positive: Clear to auscultation, Normal air movement Heart Exam: Positive: Rate Normal, Regular Rhythm, Normal S1, Normal S2; Negative: Murmurs, Rubs Abdomen Exam: Positive: BS Hyperactive, Soft; Negative: Tenderness, Hepatospenomegaly Extremity Exam: Negative: Clubbing, Cyanosis, Edema Assessment /Plan Assessment This is a 65 yr old with past medical history of nephrolithiasis, recurrent left ureteral stones with history of laser lithotripsy, stone extraction and placement of the left ureteral stent several times since May 2020 , hyperlipidemia, hypertension, last admitted here from August 21 to August 24, when she had left hydroureteronephrosis and pyelonephritis. She was found to again have left ureteral stone and left ureteral stricture status post left ureteroscopy and balloon dilatation of ureteral stricture and basket extraction of stones and placement of left ureteral stent on 08/22/2020. Prior to this in July 2020. She had left ureteral stent placement and removal. She has been on antibiotics since the April of this year. On 09/01/2020 she presented to the emergency room of [facility] for fever, chills and diarrhea , back pain and abdominal pain. She was diagnosed with pyelonephritis, sepsis likely antibiotic related diarrhea and transferred here for uro-logical evaluation. Here she continued to have diarrhea here, gi panel came back positive for C diff. CT of the abdomen showed extensive diverticulosis and chronic inflammation. She was diagnosed with C diff colitis. C diff colitis started on Po vancomycin q 6 hours. This is the first episode. Pyelonephritis ruled out. stopped Zosyn. Bilateral Nephrolithiasis, Left ureteral stones, Left ureteral stricture New CT from outside hospital shows right nephrolithiasis and some residual left hydronephrosis, left stent in good position. There is some delayed excretion on contrast s/p several procedures this year. Most recent on August 21 Had left ureteral dilatation and basket extraction of the ureteral stones Has left ureteral stent in place. Appreciate urologic consult. Hypomagnesemia replaced. Hypokalemia replaced Diarrhea will send GI panel lactobacillus. Anemia DLP statin Obesity Follow up with PMD. Plan/VTE VTE Prophylaxis Ordered?: Yes VS, I&O, 24H, Fishbone Vital Signs/I&O Vital Signs Date Time Temp Pulse Resp B/P (MAP) Pulse Ox O2 Delivery O2 Flow Rate FiO2 09/03/20 06:00 97.8 75 19 140/77 (98) 96 Room Air I&O- Last 24 Hours up to 6 AM 09/03/20 06:00 Intake Total 3060 ml Output Total 1500 ml Balance 1560 ml Laboratory Data 24H LABS Laboratory Tests 2 09/02/20 11:34: Bedside Glucose (Misc Panel) 135H 09/02/20 16:38: Bedside Glucose (Misc Panel) 102 Microbiology Microbiology 09/02/20 Gastrointestinal Tract Panel (PCR) - Final, Complete Clostridium Difficile A/B 09/02/20 Urine Culture - Final, Complete 09/01/20 Blood Culture - Preliminary, Resulted No growth after 24 hours . All specim... LATRICIA WHITMORE MD September 03, 2020 09:14
[2020-09-03 10:01] LABS: BASO % 0.5 % (0.0-1.0); EOS # 0.1 10^3/uL (0.0-0.5); HEMOGLOBIN 9.6 g/dl (12.0-15.5); LYMPH # 0.9 10^3/uL (1.5-5.0); LYMPH % 20.5 % (24.0-44.0); MEAN CORPUSCULAR HEMOGLOBIN 27.2 pg (27.0-33.0); MEAN CORPUSCULAR VOLUME 87.8 fl (80.0-96.0); MONO # 0.3 10^3/uL (0.0-0.8); MONO % 7.4 % (2.0-8.0); NEUTROPHILS # 3.1 10^3/uL (1.5-8.5); NEUTROPHILS % 68.7 % (36.0-66.0); PLATELET COUNT, AUTOMATED 366 10^3/uL (150-450); RED BLOOD COUNT 3.53 10^6/uL (4.00-5.40); WHITE BLOOD COUNT 4.4 10^3/uL (4.0-10.0)
[2020-09-03 10:35] LABS: CALCIUM LEVEL 8.3 MG/DL (8.8-10.2); GLOMERULAR FILTRATION RATE 59.1 (>45); POTASSIUM SERUM 4.2 MEQ/L (3.5-5.1)
--- NOTE | 2020-09-03 11:57 | IPNPDOC ---
Subjective Review oF Systems Chief Complaint The patient is a 65-year-old female admitted with a reason for visit of Urosepsis. General: Reports: Normal Appetite; Denies: Fatigue, Malaise Constitutional: Denies: Fever, Chills, Sweats, Weakness, Malaise Eyes: Denies: Pain, Vision change ENT: Denies: Head Aches, Sore Throat, Epistaxis Skin: Denies: Rash, Lesions, Jaundice, Bruising, Itching, Dry, Breakdown, Nail Changes, Other Cardiovascular: Denies Chest Pain, Denies Palpitations Gastrointestinal: Denies: Nausea, Vomiting, Abdominal Pain Genitourinary: Denies: Dysuria, Frequency, Incontinence, Hematuria Hematologic: Denies: Bruising, Bleeding Excessively Endocrine: Denies: Polydipsia, Polyphagia, Polyuria Musculoskeletal: Denies: Neck Pain, Back Pain Neurological: Denies: Weakness, Numbness, Incoordination, Change in Speech, Confusion, Seizures, Other Symptoms Psych: Reports: Mood Normal; Denies: Anxiety, Depression Objective Physical Examination Eye Exam: PERRLA, Conjunctiva & lids normal, EOMI; No: Sclera icteric ENT EXAM: Atraumatic, Mucous membr. moist/pink, Pharynx Normal Neck Exam: Supple; No: JVD, thyromegaly Chest Exam: Clear to auscultation, Normal air movement Heart Exam: Positive: Rate Normal, Regular Rhythm, Normal S1, Normal S2; Negative: Murmurs, Rubs ABDOMEN EXAM: Normal bowel sounds, Soft; No: Tenderness, Hepatospenomegaly Vital Signs/I&O Vital Signs Date Time Temp Pulse Resp B/P (MAP) Pulse Ox O2 Delivery O2 Flow Rate FiO2 09/03/20 06:00 97.8 75 19 140/77 (98) 96 Room Air I&O- Last 24 Hours up to 6 AM 09/03/20 06:00 Intake Total 3060 ml Output Total 1500 ml Balance 1560 ml Laboratory Data Labs 24H Laboratory Tests 2 09/02/20 16:38: Bedside Glucose (Misc Panel) 102 09/03/20 09:39: Immature Granulocyte % (Auto) 0.9, Neutrophils (%) (Auto) 68.7H, Lymphocytes (%) (Auto) 20.5L, Monocytes (%) (Auto) 7.4, Eosinophils (%) (Auto) 2.0, Basophils (%) (Auto) 0.5, Neutrophils # (Auto) 3.1, Lymphocytes # (Auto) 0.9L, Monocytes # (Auto) 0.3, Eosinophils # (Auto) 0.1, Basophils # (Auto) 0.0, Nucleated Red Blood Cells % (auto) 0.0, Anion Gap 6L, Glomerular Filtration Rate 59.1, Calcium Level 8.3L CBC/BMP Laboratory Tests 09/03/20 09:39 FSBS Laboratory Tests Test 09/02/20 16:38 Range/Units Bedside Glucose (Misc Panel) 102 80-115 MG/DL Microbiology Microbiology 09/02/20 Gastrointestinal Tract Panel (PCR) - Final, Complete Clostridium Difficile A/B 09/02/20 Urine Culture - Final, Complete 09/01/20 Blood Culture - Preliminary, Resulted No growth after 24 hours . All specim... Assessment/Plan Date Seen The patient was seen on 09/03/20. Plan/VTE VTE Prophylaxis Ordered?: Yes Plan Cultures show C. diff There does not seem to be any urologic issues that need intervention at this time. If problems arise, please call me. ALBERTO SANTOS MD September 03, 2020 11:57
[2020-09-03 14:00] VITALS: BP 140/90
[2020-09-03 20:55] VITALS: BP 142/94
[2020-09-04 05:35] VITALS: BP 143/86
[2020-09-04] MEDS: VANCOMYCIN ORAL SOL 250MG/5ML ORAL SYRINGE PO SCH ×2 (05:37→11:27)
[2020-09-04] MEDS: POTASSIUM CHLORIDE INJ 40 MEQ in NS 1,000 ML IV SCH (06:07)
[2020-09-04 06:39] LABS: HEMATOCRIT 32.6 % (36.0-47.0); MEAN CORPUSCULAR HEMOGLOBIN 26.8 pg (27.0-33.0); MEAN CORPUSCULAR HGB CONC 30.7 g/dl (32.0-36.5); MEAN CORPUSCULAR VOLUME 87.4 fl (80.0-96.0); PLATELET COUNT, AUTOMATED 404 10^3/uL (150-450); RED BLOOD COUNT 3.73 10^6/uL (4.00-5.40); WHITE BLOOD COUNT 3.8 10^3/uL (4.0-10.0)
[2020-09-04 07:05] LABS: BLOOD UREA NITROGEN 7 MG/DL (7-18); CALCIUM LEVEL 8.6 MG/DL (8.8-10.2); CARBON DIOXIDE LEVEL 29 MEQ/L (21-32); CHLORIDE LEVEL 106 MEQ/L (98-107); CREATININE FOR GFR 0.78 MG/DL (0.55-1.30); GLOMERULAR FILTRATION RATE > 60.0 (>45); GLUCOSE, FASTING 90 MG/DL (70-100); POTASSIUM SERUM 4.3 MEQ/L (3.5-5.1); SODIUM LEVEL 138 MEQ/L (136-145)
[2020-09-04 07:12] LABS: ATYPICAL LYMPH 1 % (0-5); BASOPHILS 3 % (0-1); EOSINOPHILS 4 % (0-3); LYMPHOCYTES 31 % (16-44); MONOCYTES 5 % (0-5); NEUTROPHILS 55 % (28-66)
[2020-09-04 07:13] LABS: PLATELET ESTIMATE NORMAL (NORMAL); POLYCHROMASIA 1+
[2020-09-04] MEDS: ENOXAPARIN 40MG/0.4ML SYRINGE (J1650 PER 10MG) SC SCH (08:12)
[2020-09-04] MEDS: LACTOBACILLUS ACIDOPHILUS CAP (BACID) PO SCH ×2 (08:12→11:27)
[2020-09-04] MEDS: NYSTATIN 500,000 U/5 ML SUSP UDC SS SCH (08:12)
[2020-09-04] MEDS: ATORVASTATIN 10 MG TAB PO SCH (08:12)
[2020-09-04] MEDS ORDERED: MAGICMW SSP (10:27)
[2020-09-04] MEDS ORDERED: VANC1CAP7 PO (10:27)
--- NOTE | 2020-09-04 12:16 | DS.PDOC ---
Discharge Summary General Date of Admission September 01, 2020 at 19:29 Date of Discharge 09/04/20 Discharge Summary PROCEDURES PERFORMED DURING STAY: [None]. DISCHARGE DIAGNOSES: C diff Colitis. Hypokalemia Hypomagnesemia SECONDARY DIAGNOSIS: Bilateral Nephrolithiasis, Left ureteral stones, Left ureteral stricture s/p dilatation and has a left ureteral stent. Calcium oxalate stones DLP, Severe diverticulosis, chronic anemia Obesity COMPLICATIONS/CHIEF COMPLAINT: Urosepsis. HOSPITAL COURSE: This is a 65 yr old with past medical history of nephrolithiasis, recurrent left ureteral stones with history of laser lithotripsy, stone extraction and placement of the left ureteral stent several times since May 2020 , hyperlipidemia, hypertension, last admitted here from August 21 to August 24, when she had left hydroureteronephrosis and pyelonephritis. She was found to again have left ureteral stone and left ureteral stricture status post left ureteroscopy and balloon dilatation of ureteral stricture and basket extraction of stones and placement of left ureteral stent on 08/22/2020. Prior to this in July 2020. She had left ureteral stent placement and removal. She has been on antibiotics since the April of this year. On 09/01/2020 she presented to the emergency room of [facility] for fever, chills and diarrhea , back pain and abdominal pain. She was diagnosed with pyelonephritis, sepsis likely antibiotic related diarrhea and transferred here for uro-logical evaluation. H ere she continued to have diarrhea here, gi panel came back positive for C diff. CT of the abdomen showed extensive diverticulosis and chronic inflammation. She was diagnosed with C diff colitis. C diff colitis Po vancomycin x10 days . This is the first episode. continue lactobacillus Pyelonephritis ruled out. stopped Zosyn. Bilateral Nephrolithiasis, Left ureteral stones, Left ureteral stricture New CT from outside hospital shows right nephrolithiasis and some residual left hydronephrosis, left stent in good position. There is some delayed excretion on contrast s/p several procedures this year. Most recent on August 21 Had left ureteral dilatation and basket extraction of the ureteral stones. Has left ureteral stent in place. Planned for a ureteric reimplantations in near future. Stone 60% calcium oxalate monohydrate, 20% calcium oxalate dihydrate, 20% hydoxyapatite in the stone from August 2020 Would likely benefit from dietary modifications to reduce the rate of stone formation. Appreciate urologic consult. Follow up with urology in 2 weeks Hypomagnesemia replaced. Hypokalemia replaced Anemia Hb stable DLP statin Obesity Follow up with PMD. DISCHARGE MEDICATIONS: Please see below. ALLERGIES: Please see below. PHYSICAL EXAMINATION ON DISCHARGE: VITAL SIGNS: Please see below. General Exam: Positive: Alert, Cooperative, No Acute Distress Eye Exam: Positive: PERRLA, Conjunctiva & lids normal, EOMI; Negative: Sclera icteric ENT Exam: Positive: Atraumatic, Mucous membr. moist/pink, Pharynx Normal Neck Exam: Positive: Supple; Negative: JVD, thyromegaly Chest Exam: Positive: Clear to auscultation, Normal air movement Heart Exam: Positive: Rate Normal, Regular Rhythm, Normal S1, Normal S2; Negative: Murmurs, Rubs Abdomen Exam: Positive: BS Hyperactive, Soft; Negative: Tenderness, Hepatosplenomegaly Extremity Exam: Negative: Clubbing, Cyanosis, Edema LABORATORY DATA: Please see below. ACTIVITY: [As tolerated]. DIET: As tolerated DISCHARGE PLAN: Home DISCHARGE INSTRUCTIONS: PMD in [address] Lowry as per outpatient appointment schedule DISCHARGE CONDITION: [Stable]. TIME SPENT ON DISCHARGE: 35 minutes. Vital Signs/I&Os Vital Signs Date Time Temp Pulse Resp B/P (MAP) Pulse Ox O2 Delivery O2 Flow Rate FiO2 09/04/20 05:35 97.1 72 20 143/86 (105) 96 Room Air I&O- Last 24 Hours up to 6 AM 09/04/20 06:00 Intake Total 1810 ml Output Total 0 ml Balance 1810 ml Laboratory Data Labs 24H Laboratory Tests 2 09/04/20 00:05: Bedside Glucose (Misc Panel) 98 09/04/20 06:22: Neutrophils (%) (Auto) , Nucleated Red Blood Cells % (auto) 0.0, Neutrophils 55, Band Neutrophils 1, Lymphocytes (Manual) 31, Monocytes (Manual) 5, Eosinophils (Manual) 4H, Basophils (Manual) 3H, Atypical Lymphocytes 1, Polychromasia 1+, Platelet Estimate NORMAL, Anion Gap 3L, Glomerular Filtration Rate > 60.0, Calcium Level 8.6L, Magnesium Level 1.9 CBC/BMP Laboratory Tests 09/04/20 06:22 FSBS Laboratory Tests Test 09/04/20 00:05 Range/Units Bedside Glucose (Misc Panel) 98 80-115 MG/DL Microbiology Microbiology 09/02/20 Gastrointestinal Tract Panel (PCR) - Final, Complete Clostridium Difficile A/B 09/02/20 Urine Culture - Final, Complete 09/01/20 Blood Culture - Preliminary, Resulted No Growth after 48 hours. All Specime... Discharge Medications Scheduled Atorvastatin Calcium (Atorvastatin Calcium) 10 Mg Tablet, 10 MG PO DAILY, (Reported) Clotrimazole (Clotrimazole) 10 Mg Veronika, 10 MG PO 5XD, (Reported) STARTED 08/28/20 X 7 DAYS L. Rhamnosus GG/Inulin (Culturelle Capsule) 1 Each Cap.sprink, 1 TAB PO DAILY, (Reported) Multivitamin,Therapeutic (Thera-Tabs) 1 Each Tablet, 1 TAB PO DAILY, (Reported) Vancomycin HCl (Vancocin HCl) 250 Mg Capsule, 250 MG PO QID Scheduled PRN Acetaminophen (Acetaminophen) 500 Mg Tablet, 500 MG PO Q6H PRN for PAIN, (Reported) Magic Mouthwash (First-Mouthwash Blm) 1 Ea Susp, 10 ML SSP QID PRN for MUCOSITIS (Diphenhydramine/maalox/lidocaine 1:1:1) May compound if kit unavailable/not covered by insurance Allergies Coded Allergies: No Known Allergies (Unverified , 05/17/20) LATRICIA WHITMORE MD September 04, 2020 12:16
[2020-09-04] MEDS ORDERED: KCL 40MEQ in NS 1000ML 1,000 ML IV SCH (21:00)
== END 2020-09-04 11:54 | disposition home or self-care (01) | DRG 372 ==
LOC: M MSPAV 19:29
PROVIDERS: ADMIT Internal Medicine; ATTEND Internal Medicine Nephrology
DX: A04.72 Enterocolitis due to Clostridium difficile, not specified as recurrent (principal); N13.1 Hydronephrosis with ureteral stricture, not elsewhere classified; N20.1 Calculus of ureter; E87.6 Hypokalemia; D64.9 Anemia, unspecified; E66.9 Obesity, unspecified; Z68.34 Body mass index [BMI] 34.0-34.9, adult; E83.42 Hypomagnesemia; K57.30 Diverticulosis of large intestine without perforation or abscess without bleeding; Z79.899 Other long term (current) drug therapy

== ENCOUNTER 2020-09-27 07:30 | Inpatient (IN) | payer MEDICARE, MEDICAID ==
[~2020-09-27] VITALS: Ht 160 cm; Wt 83.9 kg
[~2020-09-27 07:30] MED LIST changes: +ACET-683 PO; +CLOT10TR PO; +CULTCAP2 PO; +LR 1,000 ML IV ONE; +MAGICMW SSP; +PHEN99.54 PO; +THERTAB52 PO; +VANC1CAP7 PO; +ceFAZolin SOD 2 GM in IV 1 EA IV ONE
[2020-09-27 11:35] LABS: INR 0.88; PROTHROMBIN TIME 12.1 SECONDS (12.5-14.3)
[2020-09-27 11:36] LABS: PARTIAL THROMBOPLASTIN TIME 29.6 SECONDS (24.2-38.5)
[2020-09-27] MEDS ORDERED: MIDAZOLAM INJ 2MG/2ML VIAL (J2250 PER 1MG) As Ordered ONE (13:38)
[2020-09-27] MEDS ORDERED: fentaNYL 100 MCG/2 ML INJECTION (J3010) As Ordered ONE (13:38)
[2020-09-27] MEDS ORDERED: HYDROmorphone HCL 2 MG/ML 1ML VIAL (J1170) As Ordered ONE (13:38)
[2020-09-27] MEDS ORDERED: dexameTHASONE 4 MG/ML 1ML VIAL (J1100 PER 1MG) As Ordered ONE (13:39)
[2020-09-27] MEDS ORDERED: ONDANSETRON 4MG/2ML VIAL As Ordered ONE ×2 (13:39→19:31)
[2020-09-27] MEDS ORDERED: LIDOCAINE 2% 100MG/5ML SDV (FOR ANES.) As Ordered ONE (13:39)
[2020-09-27] MEDS ORDERED: ROCURONIUM BROMIDE 50 MG/5 ML VIAL As Ordered ONE ×3 (13:39→16:33)
[2020-09-27] MEDS ORDERED: propofoL 200 MG/20 ML VIAL As Ordered ONE (13:39)
[2020-09-27] MEDS ORDERED: LIDOCAINE 1% SDV 30ML VIAL As Ordered ONE (13:43)
[2020-09-27] MEDS ORDERED: BUPIVACAINE HCL 0.25% 30ML VIAL As Ordered ONE (13:43)
[2020-09-27] MEDS ORDERED: LACRILUBE (AKWA TEARS) OPHTH OINT 3.5 GM As Ordered ONE (13:52)
[2020-09-27] MEDS ORDERED: NS 1,000 ML IV SCH (14:05)
[2020-09-27] MEDS ORDERED: ACETAMINOPHEN TAB 650MG DOSE (2X325MG) PO PRN (14:05)
[2020-09-27] MEDS ORDERED: MORPHINE 2 MG/ML 1ML VIAL (J2270) IV PRN (14:05)
[2020-09-27] MEDS ORDERED: PHENYLephrine 500MCG 5ML (100MCG/ML) SYRINGE As Ordered ONE ×2 (14:44→15:02)
[2020-09-27] MEDS ORDERED: ePHEDrine SULFATE 25 MG/5 ML(5MG/ML) SYRINGE As Ordered ONE (14:44)
[2020-09-27] MEDS ORDERED: ACETAMINOPHEN 1000MG 100ML IV BTL (OFIRMEV) (J0131 PER 10MG) As Ordered ONE (14:50)
[2020-09-27] MEDS ORDERED: SUGAMMADEX SODIUM 500 MG/5 ML VIAL (BRIDION) As Ordered ONE (14:56)
[2020-09-27] MEDS ORDERED: KETOROLAC 60MG 2ML VIAL As Ordered ONE (19:29)
[2020-09-27] MEDS ORDERED: LR 1,000 ML IV SCH (19:50)
[2020-09-27] MEDS ORDERED: METOCLOPRAMIDE INJ 10MG/2ML VIAL (J2765 PER 1) IV PRN (19:50)
[2020-09-27] MEDS ORDERED: ONDANSETRON 4MG/2ML VIAL IV PRN (19:50)
[2020-09-27] MEDS ORDERED: fentaNYL 100 MCG/2 ML INJECTION (J3010) IV PRN (19:50)
[2020-09-27] MEDS ORDERED: PERCOCET 5MG/325MG TAB PO PRN (19:50)
--- NOTE | 2020-09-27 19:51 | ROOPDOC ---
[facility] Report Of Operation Report of Operation DATE OF PROCEDURE: 09/27/20 PREPROCEDURE DIAGNOSES: Left Ureteral Stricture. POSTPROCEDURE DIAGNOSES: Left Ureteral Stricture. PROCEDURE: Left Robotic-assisted Laparoscopic Ureteroureterostomy. SURGEON: Gatito Rice MD NEWSPAPER EDITOR MANAGING: None ANESTHESIA: General. OPERATIVE INDICATIONS: This is a 65 year old female with a distal left ureteral stricture that has recurred despite endoscopic treatment. After a discussion of the risks and benefits, the patient elected to undergo the above procedure for treatment. DESCRIPTION OF PROCEDURE: The patient was brought to the operating room and general anesthesia was induced. Prophylactic antibiotics were infused. She was then placed in the supine position and prepped and draped in the usual sterile fashion. At this point, a Prakash catheter was inserted into the bladder and the balloon was filled with 10 mL of sterile water. We then made a midline incision just above the umbilicus for an 8 mm port. A Veress needle was utilized to achieve pneumoperitoneum. Next, an 8 mm port was inserted into the incision and subsequently a camera was inserted. There were no injuries from the Veress needle or initial trocar placement. Then three robotic ports were placed in the usual configuration in line just below the level of the umbilicus. A 12 mm certified surgical assistant port was placed just lateral and at the level of the umbilicus. Once all the ports were placed, the robot was docked. Lysis of adhesions between the sigmoid colon and abdominal wall was then performed. Next, the left ureter was identified as it crosses the iliac vessels. The ureter appeared scarred down just distal to the level of the iliac vessels. I then carefully dissected the ureter out in this area and the stricture was identified. The stricture was then excised and sent for pathologic analysis. The previously placed stent was removed intact. The proximal and distal ends of the ureter were then spatulated. The ends were then sewn together with running #4-0 Vicryl suture in a tension free manner. Prior to completing the anastomosis, a new 7Fr x 22-32cm JJ ureteral stent was advanced up the left ureter into the kidney and down the ureter into the bladder. After the stent was placed the anastomosis was completed. We then filled the bladder with 120mL of normal saline and there did not appear to be any extravasation. We then checked for hemostasis and it appeared excellent. At this point, a Zach-Cabello drain was brought in through the left robotic port skin site and the drain was positioned anterior to the bladder. Once confirming good hemostasis, the robot was undocked. A Domenico-Justin fascial closure device was utilized to place a #0 Vicryl suture between the fascia of the 12 mm certified surgical assistant port. The drain was secured to the skin with #2-0 Ethilon suture. Next, all the remaining ports were removed and there did not appear to be any bleeding from any of the port sites. The previously placed #0 Vicryl free ties through the certified surgical assistant port were then tied down and all incisions were irrigated. Last, all of the incisions were closed with running subcuticular #4-0 Vicryl sutures. Local anesthesia was applied. Dermabond was then applied to the incisions. This marked the conclusion of the procedure. The patient was then awakened from anesthesia and transported to the recovery room in stable condition. ESTIMATED BLOOD LOSS: 25 mL. COMPLICATIONS: None. SPECIMENS: Left ureteral stricture. PLAN: The patient will be admitted to the hospital postoperatively, and she will likely be discharged home within the next 1-2 days. GATITO RICE MD Sep 27, 2020 14:16
[2020-09-27 19:58] LABS: HEMATOCRIT 37.4 % (36.0-47.0); HEMOGLOBIN 11.4 g/dl (12.0-15.5); MEAN CORPUSCULAR HEMOGLOBIN 26.8 pg (27.0-33.0); MEAN CORPUSCULAR HGB CONC 30.5 g/dl (32.0-36.5); PLATELET COUNT, AUTOMATED 329 10^3/uL (150-450); RED BLOOD COUNT 4.25 10^6/uL (4.00-5.40); WHITE BLOOD COUNT 10.5 10^3/uL (4.0-10.0)
[2020-09-27 20:17] LABS: CALCIUM LEVEL 8.4 MG/DL (8.8-10.2); CREATININE FOR GFR 1.08 MG/DL (0.55-1.30); POTASSIUM SERUM 4.4 MEQ/L (3.5-5.1)
--- NOTE | 2020-09-27 20:24 | REP ---
INDICATION: confirm stent placement - do in PACU. COMPARISON: None. FINDINGS: KUB shows the intestinal gas pattern to be nonspecific. The organ silhouettes insofar as delineated are unremarkable. There is no evidence of free intraperitoneal air. There is significant artifact throughout the exam decreasing the sensitivity of the exam the etiology of which is uncertain. There is a double pigtail stent seen on the left the proximal portion of which is somewhat in the region of the left renal pelvis and in the left hemipelvis probably urinary bladder. This examination is markedly limited IMPRESSION: As above. Likely left ureteral stent. <Electronically signed by Sawyer Shultz > 09/27/20 2020
[2020-09-27 20:47] VITALS: BP 156/99
[2020-09-27] MEDS: ceFAZolin SOD 1 GM in D5W MINI-BAG PLUS 50 ML IV SCH (20:59)
[2020-09-27] MEDS: DOCUSATE SODIUM 100MG CAPSULE PO SCH (20:59)
[2020-09-27 21:34] VITALS: BP 138/86
[2020-09-27 22:05] VITALS: BP 135/87
[2020-09-27 23:27] VITALS: BP 135/87
[2020-09-28] MEDS: PERCOCET 5MG/325MG TAB PO PRN ×7 (01:10→21:58)
[2020-09-28 01:27] VITALS: BP 145/66
[2020-09-28] MEDS: ceFAZolin SOD 1 GM in D5W MINI-BAG PLUS 50 ML IV SCH (05:38)
[2020-09-28 06:49] LABS: HEMATOCRIT 30.3 % (36.0-47.0); HEMOGLOBIN 9.1 g/dl (12.0-15.5); MEAN CORPUSCULAR VOLUME 86.6 fl (80.0-96.0); PLATELET COUNT, AUTOMATED 287 10^3/uL (150-450); WHITE BLOOD COUNT 7.1 10^3/uL (4.0-10.0)
[2020-09-28 06:57] VITALS: BP 131/84
[2020-09-28 07:09] LABS: BLOOD UREA NITROGEN 14 MG/DL (7-18); CALCIUM LEVEL 7.8 MG/DL (8.8-10.2); CARBON DIOXIDE LEVEL 26 MEQ/L (21-32); CHLORIDE LEVEL 107 MEQ/L (98-107); CREATININE FOR GFR 0.97 MG/DL (0.55-1.30); GLOMERULAR FILTRATION RATE > 60.0 (>45); GLUCOSE, FASTING 112 MG/DL (70-100); POTASSIUM SERUM 4.4 MEQ/L (3.5-5.1); SODIUM LEVEL 137 MEQ/L (136-145)
[2020-09-28] MEDS: DOCUSATE SODIUM 100MG CAPSULE PO SCH ×2 (08:01→21:57)
[2020-09-28] MEDS: LACTOBACILLUS ACIDOPHILUS CAP (BACID) PO SCH (08:01)
[2020-09-28] MEDS: ATORVASTATIN 10 MG TAB PO SCH (08:01)
--- NOTE | 2020-09-28 08:11 | IPNPDOC ---
Subjective Review oF Systems Chief Complaint The patient is a 65-year-old female admitted with a reason for visit of Ureteral Stricture. Events since Last Encounter No acute events o/n. Good pain control. No n/v. Tolerating clears. Has not ambulated yet. No f/c/ns. Objective Physical Examination General Exam: Alert, Cooperative, No Acute Distress ABDOMEN EXAM: Soft, Tenderness (minimal), Other (incisions clean/dry/intact; JOSSELIN w/ minimal serous output) Skin Exam: Nl turgor and temperature Neuro Exam: Normal Speech Psych Exam: Mental status NL, Mood NL Other physical findings catheter draining clear yellow urine Vital Signs/I&O Vital Signs Date Time Temp Pulse Resp B/P (MAP) Pulse Ox O2 Delivery O2 Flow Rate FiO2 09/28/20 08:02 16 09/28/20 06:57 97.6 78 131/84 (100) 99 Room Air 09/27/20 21:34 2.0 I&O- Last 24 Hours up to 6 AM 09/28/20 06:00 Intake Total 2126 ml Output Total 125 ml Balance 2001 ml Laboratory Data Labs 24H Laboratory Tests 2 09/27/20 10:53: Prothrombin Time 12.1, Prothromb Time International Ratio 0.88, Activated Partial Thromboplast Time 29.6 09/27/20 19:46: Nucleated Red Blood Cells % (auto) 0.0, Anion Gap 4L, Glomerular Filtration Rate 54.0, Calcium Level 8.4L 09/28/20 06:10: Nucleated Red Blood Cells % (auto) 0.0, Anion Gap 4L, Glomerular Filtration Rate > 60.0, Calcium Level 7.8L CBC/BMP Laboratory Tests 09/27/20 19:46 09/28/20 06:10 Assessment/Plan Date Seen The patient was seen on 09/28/20. Patient Summary This is a 65 y/o F POD1 s/p L robotic ureteroureterostomy. She is doing well. Hb 9.1 from 11.4 postop. Cr 0.97. Good UOP. Minimal JOSSELIN output. Plan/VTE VTE Prophylaxis Ordered?: Yes VTE Exclusion Mechanical Proph: N/A:VTE Prophy Ordered Plan - d/c Prakash - d/c IVF - strict I/Os - percocet prn pain - ambulate - SCDs when in bed - incentive spirometry - likely discharge home later today - will recheck Hb prior given the drop to 9.1 from 11.4 GATITO RICE MD Sep 28, 2020 08:11
[2020-09-28 10:00] VITALS: BP 108/68
[2020-09-28] MEDS ORDERED: DOK1CAP7 PO (13:26)
[2020-09-28] MEDS ORDERED: PERCOCET PO (13:26)
[2020-09-28 14:00] VITALS: BP 103/61
[2020-09-28] MEDS: KETOROLAC 30 MG/ML 1ML VIAL IV SCH ×2 (17:24→21:58)
[2020-09-28 18:00] VITALS: BP 105/62
[2020-09-28 20:21] VITALS: BP 148/84
[2020-09-29] MEDS: ONDANSETRON 4MG/2ML VIAL IV PRN (02:10)
[2020-09-29] MEDS ORDERED: SIMETHICONE 80MG CHEW TAB PO PRN (02:25)
[2020-09-29] MEDS: oxyBUTYnin 5 MG TAB PO PRN (02:32)
[2020-09-29] MEDS: KETOROLAC 30 MG/ML 1ML VIAL IV SCH ×3 (05:01→18:05)
[2020-09-29] MEDS: PERCOCET 5MG/325MG TAB PO PRN ×3 (05:22→21:21)
[2020-09-29 05:31] VITALS: BP 116/83
[2020-09-29 07:15] LABS: HEMATOCRIT 31.1 % (36.0-47.0); HEMOGLOBIN 9.4 g/dl (12.0-15.5); MEAN CORPUSCULAR HGB CONC 30.2 g/dl (32.0-36.5); MEAN CORPUSCULAR VOLUME 86.1 fl (80.0-96.0); PLATELET COUNT, AUTOMATED 300 10^3/uL (150-450); RED BLOOD COUNT 3.61 10^6/uL (4.00-5.40); WHITE BLOOD COUNT 8.2 10^3/uL (4.0-10.0)
[2020-09-29 07:42] LABS: BLOOD UREA NITROGEN 16 MG/DL (7-18); CALCIUM LEVEL 7.9 MG/DL (8.8-10.2); CARBON DIOXIDE LEVEL 23 MEQ/L (21-32); CHLORIDE LEVEL 107 MEQ/L (98-107); GLOMERULAR FILTRATION RATE > 60.0 (>45); GLUCOSE, FASTING 122 MG/DL (70-100); POTASSIUM SERUM 3.8 MEQ/L (3.5-5.1); SODIUM LEVEL 137 MEQ/L (136-145)
--- NOTE | 2020-09-29 07:55 | IPNPDOC ---
Subjective Review oF Systems Chief Complaint The patient is a 65-year-old female admitted with a reason for visit of Ureteral Stricture. Events since Last Encounter Patient having a lot of gas pain, which is better this morning. Not ambulating much. No n/v. Had a small bm. No f/c/ns. Objective Physical Examination General Exam: Alert, Cooperative, No Acute Distress ABDOMEN EXAM: Soft, Tenderness (minimal), Other (incisions clean/dry/intact; JOSSELIN w/ minimal serous output) Skin Exam: Nl turgor and temperature Neuro Exam: Normal Speech Psych Exam: Mental status NL, Mood NL Vital Signs/I&O Vital Signs Date Time Temp Pulse Resp B/P (MAP) Pulse Ox O2 Delivery O2 Flow Rate FiO2 09/29/20 05:52 18 09/29/20 05:31 96.8 102 116/83 (94) 94 Room Air 09/28/20 18:00 2.0 I&O- Last 24 Hours up to 6 AM 09/29/20 06:00 Intake Total 3430 ml Output Total 1570 ml Balance 1860 ml Laboratory Data Labs 24H Laboratory Tests 2 09/29/20 06:27: Nucleated Red Blood Cells % (auto) 0.0, Anion Gap 7L, Glomerular Filtration Rate > 60.0, Calcium Level 7.9L CBC/BMP Laboratory Tests 09/29/20 06:27 Assessment/Plan Date Seen The patient was seen on 09/29/20. Patient Summary This is a 65 y/o F POD1 s/p L robotic ureteroureterostomy. Hb stable at 9.4. Cr 0.9. Good UOP. Minimal JOSSELIN output. Plan/VTE VTE Prophylaxis Ordered?: Yes VTE Exclusion Mechanical Proph: N/A:VTE Prophy Ordered Plan - tordaol and percocet for pain - encourage hydration - strict I/Os - patient needs to ambulate more - SCDs when in bed - incentive spirometry - likely discharge home later today GATITO RICE MD Sep 29, 2020 07:55
[2020-09-29] MEDS: DOCUSATE SODIUM 100MG CAPSULE PO SCH (09:00)
[2020-09-29 10:00] VITALS: BP 106/67
[2020-09-29] MEDS: ATORVASTATIN 10 MG TAB PO SCH (10:03)
[2020-09-29] MEDS: LACTOBACILLUS ACIDOPHILUS CAP (BACID) PO SCH (10:03)
[2020-09-29 14:00] VITALS: BP 113/77
[2020-09-29 18:00] VITALS: BP 111/73
[2020-09-29 20:12] VITALS: BP 136/77
[2020-09-30] MEDS: oxyBUTYnin 5 MG TAB PO PRN (00:25)
[2020-09-30] MEDS: PERCOCET 5MG/325MG TAB PO PRN ×4 (01:40→19:57)
[2020-09-30] MEDS: ONDANSETRON 4MG/2ML VIAL IV PRN ×2 (05:56→20:43)
[2020-09-30 06:50] VITALS: BP 118/74
[2020-09-30 07:34] LABS: HEMATOCRIT 31.4 % (36.0-47.0); HEMOGLOBIN 9.6 g/dl (12.0-15.5); MEAN CORPUSCULAR HGB CONC 30.6 g/dl (32.0-36.5); MEAN CORPUSCULAR VOLUME 85.1 fl (80.0-96.0); PLATELET COUNT, AUTOMATED 296 10^3/uL (150-450); RED BLOOD COUNT 3.69 10^6/uL (4.00-5.40); WHITE BLOOD COUNT 9.5 10^3/uL (4.0-10.0)
[2020-09-30 07:59] LABS: BLOOD UREA NITROGEN 17 MG/DL (7-18); CALCIUM LEVEL 7.8 MG/DL (8.8-10.2); CARBON DIOXIDE LEVEL 24 MEQ/L (21-32); CHLORIDE LEVEL 103 MEQ/L (98-107); CREATININE FOR GFR 0.91 MG/DL (0.55-1.30); GLOMERULAR FILTRATION RATE > 60.0 (>45); GLUCOSE, FASTING 127 MG/DL (70-100); POTASSIUM SERUM 3.5 MEQ/L (3.5-5.1); SODIUM LEVEL 133 MEQ/L (136-145)
[2020-09-30] MEDS: LACTOBACILLUS ACIDOPHILUS CAP (BACID) PO SCH (09:41)
[2020-09-30] MEDS: ATORVASTATIN 10 MG TAB PO SCH (09:41)
--- NOTE | 2020-09-30 12:10 | IPNPDOC ---
Subjective Review oF Systems Chief Complaint The patient is a 65-year-old female admitted with a reason for visit of Ureteral Stricture. s/p RAL ureteroureterostomy. Events since Last Encounter There was report of multiple liquid BM some days back and so plan was to test for C. Diff. However nurses report that since then they have not been able to obtain stool sample for C. Diff testing. Pt. reports that she has had multiple BM today and hat is in toilet but nurse reports no stool in toilet. T max 100.5. Pt reports she feels poorly with no appetite. Objective Physical Examination General Exam: Alert, Cooperative, No Acute Distress ABDOMEN EXAM: Soft, Tenderness (minimal), Other (incisions clean/dry/intact; JOSSELIN w/ minimal serous output) Skin Exam: Nl turgor and temperature Neuro Exam: Normal Speech Psych Exam: Mental status NL, Mood NL Vital Signs/I&O Vital Signs Date Time Temp Pulse Resp B/P (MAP) Pulse Ox O2 Delivery O2 Flow Rate FiO2 09/30/20 06:50 98.6 110 20 118/74 (89) 94 09/29/20 20:12 Nasal Cannula 2.0 I&O- Last 24 Hours up to 6 AM 09/30/20 06:00 Intake Total 2940 ml Output Total 30 ml Balance 2910 ml Laboratory Data Labs 24H Laboratory Tests 2 09/30/20 07:17: Nucleated Red Blood Cells % (auto) 0.0, Anion Gap 6L, Glomerular Filtration Rate > 60.0, Calcium Level 7.8L CBC/BMP Laboratory Tests 09/30/20 07:17 Assessment/Plan Date Seen The patient was seen on 09/30/20. Plan/VTE VTE Prophylaxis Ordered?: Yes VTE Exclusion Mechanical Proph: N/A:VTE Prophy Ordered Plan - tordaol and percocet for pain - encourage hydration - strict I/Os - patient needs to ambulate more - SCDs when in bed - incentive spirometry - will hold discharge for now awaiting collection of stool sample for C. Diff darwin briones. BON LANE MD Sep 30, 2020 12:10
[2020-09-30 14:00] VITALS: BP 120/73
[2020-09-30 22:00] VITALS: BP 141/82
[2020-10-01] MEDS: PERCOCET 5MG/325MG TAB PO PRN ×2 (01:27→08:52)
[2020-10-01] MEDS: ONDANSETRON 4MG/2ML VIAL IV PRN ×3 (03:39→20:04)
[2020-10-01 06:00] VITALS: BP 137/80
[2020-10-01 06:19] LABS: HEMATOCRIT 31.2 % (36.0-47.0); HEMOGLOBIN 9.8 g/dl (12.0-15.5); MEAN CORPUSCULAR HEMOGLOBIN 26.3 pg (27.0-33.0); MEAN CORPUSCULAR HGB CONC 31.4 g/dl (32.0-36.5); MEAN CORPUSCULAR VOLUME 83.6 fl (80.0-96.0); PLATELET COUNT, AUTOMATED 287 10^3/uL (150-450); RED BLOOD COUNT 3.73 10^6/uL (4.00-5.40); WHITE BLOOD COUNT 9.4 10^3/uL (4.0-10.0)
[2020-10-01 06:46] LABS: BLOOD UREA NITROGEN 12 MG/DL (7-18); CALCIUM LEVEL 7.9 MG/DL (8.8-10.2); CARBON DIOXIDE LEVEL 27 MEQ/L (21-32); CHLORIDE LEVEL 99 MEQ/L (98-107); CREATININE FOR GFR 0.74 MG/DL (0.55-1.30); GLOMERULAR FILTRATION RATE > 60.0 (>45); GLUCOSE, FASTING 135 MG/DL (70-100); POTASSIUM SERUM 3.5 MEQ/L (3.5-5.1); SODIUM LEVEL 131 MEQ/L (136-145)
[2020-10-01] MEDS: LACTOBACILLUS ACIDOPHILUS CAP (BACID) PO SCH (08:51)
[2020-10-01] MEDS: ATORVASTATIN 10 MG TAB PO SCH (08:51)
--- NOTE | 2020-10-01 11:58 | IPNPDOC ---
Subjective Review oF Systems Chief Complaint The patient is a 65-year-old female admitted with a reason for visit of Ureteral Stricture. Events since Last Encounter Continues to report vague abdominal pain, primarily in right lower quadrant. Is taking percocet which provides relief. Has been getting up to use bathroom including several loose BM which have been contaminated when sent for c.diff testing. Reports has been taking a bit of PO, not much nausea, no vomiting. Objective Physical Examination General Exam: Alert, Cooperative, No Acute Distress ABDOMEN EXAM: Soft, Tenderness (minimal), Other (incisions clean/dry/intact; JOSSELIN w/ minimal serous output) Skin Exam: Nl turgor and temperature Neuro Exam: Normal Speech Psych Exam: Mental status NL, Mood NL Vital Signs/I&O Vital Signs Date Time Temp Pulse Resp B/P (MAP) Pulse Ox O2 Delivery O2 Flow Rate FiO2 10/01/20 09:22 18 10/01/20 06:00 98.0 90 137/80 (99) 97 Nasal Cannula 2.0 I&O- Last 24 Hours up to 6 AM 10/01/20 06:00 Intake Total 2680 ml Output Total 1050 ml Balance 1630 ml Laboratory Data Labs 24H Laboratory Tests 2 10/01/20 06:01: Nucleated Red Blood Cells % (auto) 0.0, Anion Gap 5L, Glomerular Filtration Rate > 60.0, Calcium Level 7.9L CBC/BMP Laboratory Tests 10/01/20 06:01 Assessment/Plan Date Seen The patient was seen on 10/01/20. Plan/VTE VTE Prophylaxis Ordered?: Yes VTE Exclusion Mechanical Proph: N/A:VTE Prophy Ordered Plan -Continue previous care plan. In addition: will consult hospitalist service with further plan based on their advice. BON LANE MD Oct 01, 2020 11:58
[2020-10-01] MEDS ORDERED: oxyCODONE 5MG TAB PO PRN (13:05)
--- NOTE | 2020-10-01 13:21 | CR.PDOC ---
General Date of Consultation: Oct 01, 2020 Referring Provider: BON LANE MD Attending Physician: BEBETO HUDSON MD Consultation REASON FOR CONSULTATION/CHIEF COMPLAINT: crampy abdominal pain and diarrhea HISTORY OF PRESENT ILLNESS: 65 yr old W with past medical history of nephrolithiasis, recurrent left ureteral stones with history of laser lithotripsy, stone extraction and p lacement of the left ureteral stent several times since May 2020 ,status post left ureteroscopy and balloon dilatation of ureteral stricture and basket extraction of stones and placement of left ureteral stent on 08/22/2020 who was now admitted by urology on 09/27 and is s/p L robotic ureterostomy by Dr. Lowry during which she had luke-op ancef, and did well post op but then developed crampy abdominal pain and diarrhea with suspicion for C.diff colitis for which medicine is now consulted. She denied shazia fevers with noted low grade temp of 100.5 and reports crampy abdominal pain that responds to her current pain regimen but with associated multiple episodes of watery diarrhea of which c.diff testing is pending, has nausea without emesis, feels achy, hot and cold and just feels poorly in general. She is currently on daily probiotic once daily, had previously been started on docusate that is now stopped, is on simethicone and is receiving pain control with Percocet for the recent urological procedure. She otherwise denies hematochezia, melena, hematemesis, dysuria, hematuria. Lab evaluation is showing no leukocytosis currently, with a WBC of 9.4, hgb 9.8 (stabilized since post-op drop), platelets 287, na 131, K 3.5, Cr 0.74, while admission KUB showed a non-specific gas pattern with no free air and a L ureteral stent. 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 Father had colon cancer. 6 Brothers and Father had nephrolithiasis ALLERGIES: Please see below. HOME MEDICATIONS: Please see below. PHYSICAL EXAMINATION: Vital Signs: see below GENERAL APPEARANCE: well nourished and developed, NAD CARDIOVASCULAR: RRR, no m/r/g LUNGS: CTAB on RA ABDOMEN: Obese, hyperactive sounds, tympanic, nontender, no rebound or guarding EXTREMITIES: WWP, no LE edema NEUROLOGICAL: CN 2-12 intact, speech not dysarthric, moving all extremities with full strength and good tone. PSYCHIATRIC: A&O x 3, able to understand and follow all commands LABORATORY DATA and IMAGING: discussed above. Reviewed. MICROBIOLOGY: COVID neg. Has pending GI panel ASSESSMENT: 65 yr old w nephrolithiasis w ureteral stents, DLP,& diverticulosis who was diagnosed w sepsis 2/2 pyelonephritis who was admitted by urology now POD4 post L ureterostomy for whom medicine is now being consulted for crampy abdominal pain and diarrhea. PLAN: Generalized illness with subjective hot/cold episodes with current chills: -check UA with reflex to UCx -check BCx x 2 sets -check GI panel given diarrhea and abdominal discomfort and nausea -check respiratory panel given generalized aches, with subjective F/C -tylenol PRN for fever -hold off antibiotics for now -is on room air without pulm complaints, will hold off chest imaging for now -ondansetron PRN for nausea -CMP on tomorrow AM labs L ureteral stricture: -POD4 s/ L ureterostomy -Will switch her pain management to oxycodone 5mg q4hp for mild to moderate pain, oxycodone 10mg q4hp for severe pain, morphine 2mg IV Q3H for severe breakthrough pain -Tylenol Q6HP specifically for fever -Plan per urology Crampy abdominal pain: -f/u GI panel -continue daily probiotic Acute on chronic anemia: stable after post-op initial drop -daily CBC -no hx suggestive of GIB HLD -continue home statin DVT ppx w Lovenox Vital Signs/I&O Vital Signs Date Time Temp Pulse Resp B/P (MAP) Pulse Ox O2 Delivery O2 Flow Rate FiO2 10/01/20 09:22 18 10/01/20 06:00 98.0 90 137/80 (99) 97 Nasal Cannula 2.0 I&O- Last 24 Hours up to 6 AM 10/01/20 06:00 Intake Total 2680 ml Output Total 1050 ml Balance 1630 ml Laboratory Data Labs 24H Laboratory Tests 2 10/01/20 06:01: Nucleated Red Blood Cells % (auto) 0.0, Anion Gap 5L, Glomerular Filtration Rate > 60.0, Calcium Level 7.9L CBC/BMP Laboratory Tests 10/01/20 06:01 Allergies Coded Allergies: No Known Allergies (Unverified , 05/17/20) Home Medications Scheduled Atorvastatin Calcium (Atorvastatin Calcium) 10 Mg Tablet, 10 MG PO DAILY, (Reported) L. Rhamnosus GG/Inulin (Culturelle Capsule) 1 Each Cap.sprink, 1 TAB PO DAILY, (Reported) Multivitamin,Therapeutic (Thera-Tabs) 1 Each Tablet, 1 TAB PO DAILY, (Reported) Phenazopyridine HCl (Uristat Ultra) 99.5 Mg Tablet, 99.5 MG PO PRN, (Reported) Scheduled PRN Acetaminophen (Acetaminophen) 500 Mg Tablet, 500 MG PO Q6H PRN for PAIN, (Reported) Oxycodone/Acetaminophen (Oxycodone-Acetaminophen 5-325) 1 Each Tablet, 1 TAB PO Q4H PRN for MODERATE/SEVERE PAIN (PS 5-10), #30 BEBETO HUDSON MD Oct 01, 2020 12:43
[2020-10-01 14:47] LABS: CLOSTRIDIUM DIFFICILE PCR POSITIVE (NEGATIVE)
[2020-10-01 15:29] LABS: ALBUMIN 2.6 GM/DL (3.2-5.2); ALT/SGPT 22 U/L (12-78); BILIRUBIN,TOTAL 0.6 MG/DL (0.2-1.0); BLOOD UREA NITROGEN 11 MG/DL (7-18); CALCIUM LEVEL 8.3 MG/DL (8.8-10.2); CARBON DIOXIDE LEVEL 25 MEQ/L (21-32); CHLORIDE LEVEL 96 MEQ/L (98-107); GLOMERULAR FILTRATION RATE > 60.0 (>45); GLUCOSE, FASTING 106 MG/DL (70-100); LIPASE 39 U/L (73-393); SODIUM LEVEL 129 MEQ/L (136-145); TOTAL PROTEIN 6.7 GM/DL (6.4-8.2)
[2020-10-01] MEDS: oxyCODONE 5MG TAB PO PRN ×2 (15:30→20:04)
[2020-10-01] MEDS: VANCOMYCIN ORAL SOL 250MG/5ML ORAL SYRINGE PO SCH (18:01)
[2020-10-01] MEDS ORDERED: GI COCKTAIL 50ML BTL(HYOSCYAMINE/MAALOX/LIDOCAINE VISCOUS)(1:3:1) PO ONE (21:15)
[2020-10-01 22:00] VITALS: BP 154/82
[2020-10-01] MEDS: PANTOPRAZOLE 40MG VIAL (C9113 PER 1) IV SCH (22:00)
[2020-10-02] MEDS: VANCOMYCIN ORAL SOL 250MG/5ML ORAL SYRINGE PO SCH ×5 (00:06→23:04)
[2020-10-02] MEDS: oxyCODONE 5MG TAB PO PRN ×4 (00:07→17:35)
[2020-10-02] MEDS: ONDANSETRON 4MG/2ML VIAL IV PRN ×4 (04:42→21:06)
[2020-10-02 06:00] VITALS: BP 145/81
[2020-10-02 06:34] LABS: HEMATOCRIT 28.8 % (36.0-47.0); HEMOGLOBIN 9.2 g/dl (12.0-15.5); MEAN CORPUSCULAR HEMOGLOBIN 25.9 pg (27.0-33.0); MEAN CORPUSCULAR HGB CONC 31.9 g/dl (32.0-36.5); MEAN CORPUSCULAR VOLUME 81.1 fl (80.0-96.0); PLATELET COUNT, AUTOMATED 326 10^3/uL (150-450); RED BLOOD COUNT 3.55 10^6/uL (4.00-5.40)
[2020-10-02 07:00] LABS: BLOOD UREA NITROGEN 12 MG/DL (7-18); CALCIUM LEVEL 7.9 MG/DL (8.8-10.2); CARBON DIOXIDE LEVEL 26 MEQ/L (21-32); CHLORIDE LEVEL 94 MEQ/L (98-107); GLOMERULAR FILTRATION RATE > 60.0 (>45); GLUCOSE, FASTING 117 MG/DL (70-100); POTASSIUM SERUM 3.9 MEQ/L (3.5-5.1); SODIUM LEVEL 126 MEQ/L (136-145)
[2020-10-02] MEDS: ATORVASTATIN 10 MG TAB PO SCH (08:27)
[2020-10-02] MEDS: LACTOBACILLUS ACIDOPHILUS CAP (BACID) PO SCH (08:27)
[2020-10-02 09:26] LABS: OSMOLALITY SERUM 258 MOSM/KG (280-301)
[2020-10-02 10:46] LABS: APPEARANCE, URINE HAZY (CLEAR); BACTERIA, URINE AUTO 1+ (NEGATIVE); BILIRUBIN, URINE AUTO NEGATIVE (NEGATIVE); BLOOD, URINE BLOOD 2+ (NEGATIVE); COLOR, URINE YELLOW (YELLOW); GLUCOSE, URINE (UA) AUTO NEGATIVE (NEGATIVE); KETONE, URINE AUTO 1+ mg/dL (NEGATIVE); LEUKOCYTE ESTERASE, URINE AUTO TRACE (NEGATIVE); MUCUS, URINE SMALL (NEGATIVE); NITRITE, URINE AUTO NEGATIVE (NEGATIVE); PROTEIN, URINE AUTO 2+ mg/dL (NEGATIVE); RBC, URINE AUTO 48 /HPF (0-3); SPECIFIC GRAVITY URINE AUTO 1.017 (1.002-1.035); SQUAMOUS EPITHELIAL CELL UR AU 1 /HPF (0-6); UROBILINOGEN, URINE AUTO 0.2 mg/dL (0.0-2.0); WBC, URINE AUTO 13 /HPF (0-3)
[2020-10-02 11:01] LABS: SODIUM,RANDOM URINE 14 MEQ/L
--- NOTE | 2020-10-02 11:23 | IPNPDOC ---
Text Note Date of Service The patient was seen on 10/02/20. NOTE SUBJECTIVE: -Diarrhea improving -Feels a bit better this morning -Reports poor PO but appears to be taking sufficient liquids per I/Os report OBJECTIVE: Vital Signs: see below GENERAL APPEARANCE: well nourished and developed, NAD CARDIOVASCULAR: RRR, no m/r/g LUNGS: CTAB on RA ABDOMEN: Obese, hyperactive sounds, tympanic, nontender, no rebound or guarding EXTREMITIES: WWP, no LE edema NEUROLOGICAL: CN 2-12 intact, speech not dysarthric, moving all extremities with full strength and good tone. PSYCHIATRIC: A&O x 3, able to understand and follow all commands LABORATORY DATA: Reviewed WBC 9 Hgb 9.2 platelets 326 na 126 K 3.9 Cr 0.7 MICROBIOLOGY: COVID neg. Cdiff positive ASSESSMENT: 65 yr old w nephrolithiasis w ureteral stents, DLP,& diverticulosis who was diagnosed w sepsis 2/2 pyelonephritis who was admitted by urology now POD5 post L ureterostomy for whom medicine was consulted for crampy abdominal pain and diarrhea and diagnosed with C.diff colitis with also still ongoing broad infectious workup. PLAN: Generalized illness with subjective hot/cold episodes with current chills: -UA with a few WBCs but no bacteria, pending cultures -f/u BCx -Cdiff positive now on PO vanc, day 2 -check respiratory panel given generalized aches, with subjective F/C -tylenol PRN for fever -hold off IV antibiotics for now pending cultures -is on room air without pulm complaints, will hold off chest imaging for now -ondansetron PRN for nausea -Lipase and LFTs wnl C.diff colitis: improving -day 2 of PO vanc -continue daily probiotic Hyponatremia: worsening i/s/o recent copious diarrhea, possibly hypovolemic but appears to be taking adequate PO per I/Os, will check lytes -Lisandra -serum osmoles -Uosmoles -will likely give fluids, pending the above labs -Daily BMP L ureteral stricture: -POD4 s/ L ureterostomy -oxycodone 5mg q4hp for mild to moderate pain, oxycodone 10mg q4hp for severe pain, morphine 2mg IV Q3H for severe breakthrough pain -Tylenol Q6HP specifically for fever -Plan per urology Acute on chronic anemia: stable after post-op initial drop -daily CBC -no hx suggestive of GIB HLD -continue home statin DVT ppx w Lovenox VS,Fishbone, I+O VS, Fishbone, I+O Laboratory Tests 10/01/20 14:40 10/02/20 06:19 Vital Signs Date Time Temp Pulse Resp B/P (MAP) Pulse Ox O2 Delivery O2 Flow Rate FiO2 10/02/20 06:00 98.5 98 22 145/81 (102) 94 Room Air 10/01/20 22:00 2.0 I&O- Last 24 Hours up to 6 AM 10/02/20 06:00 Intake Total 2460 ml Output Total 342 ml Balance 2118 ml BEBETO HUDSON MD Oct 02, 2020 08:16
[2020-10-02 11:42] LABS: OSMOLALITY URINE 501 MOSM/KG (50-1400)
--- NOTE | 2020-10-02 12:36 | IPNPDOC ---
Subjective Review oF Systems Chief Complaint The patient is a 65-year-old female admitted with a reason for visit of Ureteral Stricture. Events since Last Encounter No acute events o/n. She was diagnosed w/ C dif and was started on PO vancomycin. Patient notes her abd pain is a little better. She notes that her diarrhea is improving. No f/c/ns. Objective Physical Examination General Exam: Alert, Cooperative, No Acute Distress ABDOMEN EXAM: Soft, Tenderness (minimal), Other (incisions clean/dry/intact; JOSSELIN w/ minimal serous output) Skin Exam: Nl turgor and temperature Neuro Exam: Normal Speech Psych Exam: Mental status NL, Mood NL Vital Signs/I&O Vital Signs Date Time Temp Pulse Resp B/P (MAP) Pulse Ox O2 Delivery O2 Flow Rate FiO2 10/02/20 06:00 98.5 98 22 145/81 (102) 94 Room Air 10/01/20 22:00 2.0 I&O- Last 24 Hours up to 6 AM 10/02/20 06:00 Intake Total 2460 ml Output Total 342 ml Balance 2118 ml Laboratory Data Labs 24H Laboratory Tests 2 10/01/20 13:31: Clostridium difficile [id number] PRESUMPTIVE NEGATIVE, Clostridium difficile Toxin (PCR) POSITIVEA 10/01/20 14:40: Erythrocyte Sedimentation Rate 56H, Anion Gap 8, Glomerular Filtration Rate > 60.0, Calcium Level 8.3L, Total Bilirubin 0.6, Aspartate Amino Transf (AST/SGOT) 28, Alanine Aminotransferase (ALT/SGPT) 22, Alkaline Phosphatase 87, C-Reactive Protein, Quantitative 28.40H, Total Protein 6.7, Albumin 2.6L, Albumin/Globulin Ratio 0.6L, Lipase 39L 10/01/20 15:13: Urine Color YELLOW, Urine Appearance CLEAR, Urine pH 6.0, Urine Specific [place] 1.012, Urine Protein 2+H, Urine Glucose (UA) NEGATIVE, Urine Ketones 1+H, Urine Blood 2+H, Urine Nitrite NEGATIVE, Urine Bilirubin NEGATIVE, Urine Urobilinogen 0.2, Urine Leukocyte Esterase TRACEH, Urine WBC (Auto) 4H, Urine RBC (Auto) 18H, Urine Hyaline Casts (Auto) 0, Urine Bacteria (Auto) NEGATIVE, Urine Squamous Epithelial Cells 0, Urine Mucus (Auto) SMALL, Urine Sperm (Auto) 10/01/20 21:31: Troponin I < 0.02 6/21/21 06:19: Nucleated Red Blood Cells % (auto) 0.2H, Anion Gap 6L, Glomerular Filtration Rate > 60.0, Calcium Level 7.9L CBC/BMP Laboratory Tests 10/01/20 14:40 10/02/20 06:19 Microbiology Microbiology 10/01/20 Urine Culture, Received Pending 10/01/20 Blood Culture, Received Pending 10/01/20 Respiratory Virus Panel (PCR) ([facility]) - Final, Complete Assessment/Plan Date Seen The patient was seen on 10/02/20. Patient Summary This is a 65 y/o F POD5 s/p L robotic ureteroureterostomy. She was diagnosed w/ C dif yesterday and started on PO vanc. WBC 9. Hb stable at 9.2. Cr 0.7. Pat ient's Na and Cl have been gradually trending down the last few days. Plan/VTE VTE Prophylaxis Ordered?: Yes VTE Exclusion Mechanical Proph: N/A:VTE Prophy Ordered Plan - appreciate hospitalist recs for treatment of C dif and hyponatremia - on PO vanc for C dif - d/c JOSSELIN drain - strict I/Os - roxicodone prn pain - ambulate - SCDs when in bed - zofran prn nausea - incentive spirometry - ambulate GATITO RICE MD Oct 02, 2020 07:49
[2020-10-02] MEDS: NS 1,000 ML IV SCH ×2 (12:37→21:06)
[2020-10-02 14:00] VITALS: BP 135/86
[2020-10-02] MEDS ORDERED: RAMELTEON 8 MG TAB (ROZEREM) PO PRN (20:30)
[2020-10-02] MEDS: PANTOPRAZOLE 40MG VIAL (C9113 PER 1) IV SCH (21:06)
[2020-10-02 21:08] VITALS: BP 136/86
--- NOTE | 2020-10-02 23:10 | ECGEPIP ---
[facility] Test Date: 2020-10-01 Pat Name: LOU ADDISON Department: Room: [place] [address] Gender: Female [employer]: FARA : [id number] Requested By: ELFEGO DUMONT Order Number: [id number] Reading MD: Ezequiel Montano Measurements Intervals Dora Rate: 97 P: -3 ND: 134 QRS: -13 QRSD: 80 T: 4 QT: 344 QTc: 436 Interpretive Statements Normal sinus rhythm Poor R wave progression. Cannot rule out inferior wall myocardial infarct, age undetermined. No prior ECG available for comparison at the time of interpretation. Electronically Signed on 10-02-2020 23:10:07 EDT by Ezequiel Montano
[2020-10-03] MEDS: oxyCODONE 5MG TAB PO PRN ×4 (00:10→14:57)
[2020-10-03 05:40] VITALS: BP 162/90
[2020-10-03] MEDS: VANCOMYCIN ORAL SOL 250MG/5ML ORAL SYRINGE PO SCH (05:40)
[2020-10-03] MEDS: ONDANSETRON 4MG/2ML VIAL IV PRN (05:40)
[2020-10-03 07:36] LABS: HEMATOCRIT 27.5 % (36.0-47.0); HEMOGLOBIN 8.9 g/dl (12.0-15.5); MEAN CORPUSCULAR HEMOGLOBIN 26.4 pg (27.0-33.0); MEAN CORPUSCULAR HGB CONC 32.4 g/dl (32.0-36.5); MEAN CORPUSCULAR VOLUME 81.6 fl (80.0-96.0); PLATELET COUNT, AUTOMATED 307 10^3/uL (150-450); RED BLOOD COUNT 3.37 10^6/uL (4.00-5.40); WHITE BLOOD COUNT 7.2 10^3/uL (4.0-10.0)
[2020-10-03 07:59] LABS: BLOOD UREA NITROGEN 9 MG/DL (7-18); CALCIUM LEVEL 7.6 MG/DL (8.8-10.2); CARBON DIOXIDE LEVEL 27 MEQ/L (21-32); CHLORIDE LEVEL 95 MEQ/L (98-107); CREATININE FOR GFR 0.68 MG/DL (0.55-1.30); GLOMERULAR FILTRATION RATE > 60.0 (>45); GLUCOSE, FASTING 125 MG/DL (70-100); POTASSIUM SERUM 4.1 MEQ/L (3.5-5.1); SODIUM LEVEL 129 MEQ/L (136-145)
[2020-10-03] MEDS: LACTOBACILLUS ACIDOPHILUS CAP (BACID) PO SCH (08:18)
[2020-10-03] MEDS: ATORVASTATIN 10 MG TAB PO SCH (08:19)
[2020-10-03] MEDS ORDERED: NS 1,000 ML IV SCH (08:55)
[2020-10-03 09:30] VITALS: BP 110/62
--- NOTE | 2020-10-03 09:55 | IPNPDOC ---
Text Note Date of Service The patient was seen on 10/03/20. NOTE SUBJECTIVE: -Diarrhea improving -Feels better this morning -Encouraged her to be out of bed, work with PT/OT that I ordered, use incentive spirometry, and for nursing to downtitrate oxygen because she has not had demonstrated hypoxemia OBJECTIVE: Vital Signs: see below GENERAL APPEARANCE: well nourished and developed, NAD CARDIOVASCULAR: RRR, no m/r/g LUNGS: CTAB on RA ABDOMEN: Obese, normoactive sounds, tympanic, nontender, no rebound or guarding EXTREMITIES: WWP, no LE edema NEUROLOGICAL: CN 2-12 intact, speech not dysarthric, moving all extremities with full strength and good tone. PSYCHIATRIC: A&O x 3, able to understand and follow all commands LABORATORY DATA: Reviewed na 129 MICROBIOLOGY: COVID neg. Cdiff positive ASSESSMENT: 65 yr old w nephrolithiasis w ureteral stents, DLP,& diverticulosis who was diagnosed w sepsis 2/2 pyelonephritis who was admitted by urology now POD6 post L ureterostomy for whom medicine was consulted for crampy abdominal pa in and diarrhea and diagnosed with C.diff colitis now improving on PO vanc being switched to fidaxomicin, and with hyponatremia that is improving with hydration. PLAN: Generalized illness with subjective hot/cold episodes with current chills: likely 2/2 C. diff -UA with a few WBCs but no bacteria, negative Cx. -BCx NGTD -Cdiff positive now improving on PO vanc, being switched to fidaxomicin for 10d course. -Respiratory panel was negative -tylenol PRN for fever -No IV antibiotics -ondansetron PRN for nausea -Lipase and LFTs wnl C.diff colitis: improving -Cdiff positive now improving on PO vanc, being switched to fidaxomicin for 10d course. -continue daily probiotic Hyponatremia: Was worsening i/s/o recent copious diarrhea, with lytes c/w hypovolemic hyponatremia, now improving with hydration -lytes c/w hypovolemic hyponatremia -will give another liter and encourage PO -Daily BMP while inpatient L ureteral stricture: -POD6 s/ L ureterostomy -oxycodone 5mg q4hp for mild to moderate pain, oxycodone 10mg q4hp for severe pain, morphine 2mg IV Q3H for severe breakthrough pain -Tylenol Q6HP specifically for fever -Plan per urology Acute on chronic anemia: stable after post-op initial drop -daily CBC -no hx suggestive of GIB HLD -continue home statin DVT ppx w Lovenox Dispo: per urology, may discharge home for a total 10d course fidaxomicin and encouraging good PO. VS,Fishbone, I+O VS, Fishbone, I+O Laboratory Tests 10/03/20 06:45 Vital Signs Date Time Temp Pulse Resp B/P (MAP) Pulse Ox O2 Delivery O2 Flow Rate FiO2 10/03/20 08:17 16 10/03/20 05:40 98.4 98 162/90 (114) 97 Nasal Cannula 2.0 I&O- Last 24 Hours up to 6 AM 10/03/20 06:00 Intake Total 2020 ml Output Total 208 ml Balance 1812 ml BEBETO HUDSON MD Oct 03, 2020 09:31
[2020-10-03] MEDS ORDERED: FIDAXOMICIN 200 MG TAB (DIFICID) PO SCH (11:00)
[2020-10-03] MEDS ORDERED: FIDA200TA PO (11:44)
--- NOTE | 2020-10-03 13:01 | IPNPDOC ---
Subjective Review oF Systems Chief Complaint The patient is a 65-year-old female admitted with a reason for visit of Ureteral Stricture. Events since Last Encounter No acute events o/n. Diarrhea has improved. Abd pain has improved. No f/c/ns. Objective Physical Examination General Exam: Alert, Cooperative, No Acute Distress ABDOMEN EXAM: Soft, Tenderness (minimal), Other (incisions clean/dry/intact) Skin Exam: Nl turgor and temperature Neuro Exam: Normal Speech Psych Exam: Mental status NL, Mood NL Vital Signs/I&O Vital Signs Date Time Temp Pulse Resp B/P (MAP) Pulse Ox O2 Delivery O2 Flow Rate FiO2 10/03/20 11:06 16 10/03/20 10:00 97.7 92 96 Room Air 10/03/20 09:30 110/62 (78) 10/03/20 05:40 2.0 I&O- Last 24 Hours up to 6 AM 10/03/20 05:59 Intake Total 2020 ml Output Total 208 ml Balance 1812 ml Laboratory Data Labs 24H Laboratory Tests 2 10/03/20 06:45: Nucleated Red Blood Cells % (auto) 0.3H, Anion Gap 7L, Glomerular Filtration Rate > 60.0, Calcium Level 7.6L CBC/BMP Laboratory Tests 10/03/20 06:45 Microbiology Microbiology 10/01/20 Urine Culture - Final, Complete 10/01/20 Blood Culture - Preliminary, Resulted No growth after 24 hours . All specim... 10/01/20 Respiratory Virus Panel (PCR) ([facility]) - Final, Complete Assessment/Plan Date Seen The patient was seen on 10/03/20. Patient Summary This is a 65 y/o F POD6 s/p L robotic ureteroureterostomy. She is feeling better today as the diarrhea has resolved w/ treatment of C dif. Hyponatremia improving. Plan/VTE VTE Prophylaxis Ordered?: Yes VTE Exclusion Mechanical Proph: N/A:VTE Prophy Ordered Plan - appreciate hospitalist recs for tx of C dif and hyponatremia - cleared for discharge from their standpoint - ambulate - regular diet - discharge home today - f/u in 2 wks for stent removal GATITO RICE MD Oct 03, 2020 13:01
--- NOTE | 2020-10-03 17:10 | DSES ---
DISCHARGE SUMMARY DATE OF ADMISSION: 09/27/2020 DATE OF DISCHARGE: 10/03/2020 ADMISSION DIAGNOSIS: Left ureteral stricture. DISCHARGE DIAGNOSES: 1. Left ureteral stricture. 2. Clostridium difficile infection. 3. Hyponatremia. ADMITTING PHYSICIAN: Dr. Freddie Lowry DISCHARGING PHYSICIAN: Dr. Freddie Lowry PROCEDURE PERFORMED: A left robotic-assisted laparoscopic ureteroureterostomy. HISTORY OF PRESENT ILLNESS: This is a 65-year-old female with a history of a mid left ureteral stricture, which had failed endoscopic management. She was admitted to undergo the above-listed procedure for treatment. Also of note, she has a history of Clostridium difficile infection about 1 month ago, which has been treated. HOSPITAL COURSE: The patient was admitted to the hospital after undergoing the above-listed procedure. Her postoperative course was notable for gradually increasing abdominal discomfort and diarrhea after postoperative day #1 and 2. Her labs throughout her hospital stay were within normal limits. Specifically, her white count remained normal, and her hemoglobin remained stable. Her serum creatinine was also stable at 0.7. Throughout her hospital stay she did start to have diarrhea, and given her history of Clostridium (C) difficile a lab was checked, and she had another diagnosis of Clostridium difficile infection. The hospitalist team was consulted to aid in treatment of this. Also during her hospital stay she became more and more hyponatremic, and they aided in treatment with this as well. The patient was started on oral vancomycin that she was on the first few days, and while on this her diarrhea improved. She was ultimately transitioned to taking Dificid for treatment of her Clostridium difficile infection. The patient's hyponatremia improved by the day of discharge, and her diarrhea had improved. She had a Zach-Cabello drain in, which was removed the day prior to discharge, as it had minimal output. The patient was also voiding well without any difficulty. She was discharged home on postoperative day #6 with the plan for her to followup in the urology clinic in about 2 weeks for stent removal. She will continue treatment of her Clostridium difficile infection with the Dificid for about another 10-day course. MTDD
== END 2020-10-03 15:15 | disposition home or self-care (01) | DRG 660 ==
LOC: M OR 10:33 → M MS5PR 20:49
PROVIDERS: ADMIT Urology; ATTEND Urology
PROC: 0TP94DZ Removal of Intraluminal Device from Ureter, Percutaneous Endoscopic Approach (ICD-10-PCS; 2020-09-27)
PROC: 8E0W4CZ Robotic Assisted Procedure of Trunk Region, Percutaneous Endoscopic Approach (ICD-10-PCS; 2020-09-27)
PROC: 0T174Z7 Bypass Left Ureter to Left Ureter, Percutaneous Endoscopic Approach (ICD-10-PCS; principal; 2020-09-27 12:30)
DX: N13.5 Crossing vessel and stricture of ureter without hydronephrosis (principal); A04.72 Enterocolitis due to Clostridium difficile, not specified as recurrent; E87.1 Hypo-osmolality and hyponatremia; Z79.899 Other long term (current) drug therapy

== ENCOUNTER 2020-10-04 20:42 | Inpatient (IN) | payer MEDICARE, MEDICAID ==
[~2020-10-04] VITALS: Ht 160 cm; Wt 87.8 kg
[~2020-10-04 20:42] MED LIST changes: +DOK1CAP7 PO; +FIDA200TA PO; -LR 1,000 ML IV ONE; +PERCOCET PO; -ceFAZolin SOD 2 GM in IV 1 EA IV ONE
[2020-10-05 00:07] VITALS: BP 118/66
[2020-10-05] MEDS ORDERED: MOM 30ML SUSPENSION UDC PO PRN (02:15)
[2020-10-05] MEDS ORDERED: ACETAMINOPHEN TAB 650MG DOSE (2X325MG) PO PRN (02:15)
[2020-10-05] MEDS ORDERED: MAALOX 30 ML SUSP *UDC PO PRN (02:15)
--- NOTE | 2020-10-05 02:19 | HPEPDOC ---
[facility] Medical History & Physical Date of Admission Oct 05, 2020 Date of Service: Oct 05, 2020 History and Physical CHIEF COMPLAINT: abdominal pain HISTORY OF PRESENT ILLNESS: 65-year-old female with a history of nephrolithiasis with ureteral stents, dyslipidemia and diverticulosis, who was discharged from [facility] on 10/03/20 after being admitted for sepsis secondary to pyelonephritis and underwent left ureterostomy, and subsequently was diagnosed with C. difficile colitis. Patient was discharged with a ten-day course of Dificid however, was not able to machine operator hop picker the prescription. Patient presented to [facility] on the morning of 10/04/20 complaining of diffuse lower abdominal cramping pain with copious diarrhea. CT in the ED showed large amount of subcutaneous air tracking involving the flanks and anterior abdomen. No free air was seen in the peritoneum or abdomen. Discussed these findings with Dr. Lowry who assured me that these are postoperative and self-limited findings due to laparoscopic surgery. Patient will be started on her ten-day course of Dificid. Further, CT showed dilation of ascending and transverse colon without transition point, suggestive of ileus. 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 Father had colon cancer. 6 Brothers and Father had nephrolithiasis ALLERGIES: Please see below. REVIEW OF SYSTEMS: 10 point ROS conducted, relevant findings are noted in HPI HOME MEDICATIONS: Please see below. PHYSICAL EXAMINATION: VITAL SIGNS: please see below General: NAD, comfortable HEENT: PERRLA, EOMI, sclerae clear Neck: supple, normal ROM, no JVD Respiratory: lungs CTAB, no wheeze, no rales, no crackles CVS: RRR, normal S1, S2, no murmurs Abdo: distended, soft, diffuse lower abdominal pain to palpation Extremities: no edema, pulses 2+ MSK: no joint deformities, normal ROM Neuro: no focal neuro deficits, moving all 4 extremities, CN2-12 intact. Strength 5/5 in all 4 extremities. No nystagmus. Psych: calm, cooperative, AAO x 3 LABORATORY DATA: See below. IMAGING: Quoted from CT abdo pelvis with contrast at [facility] on 10/04/20: 1. Large amount of subcutaenous air tracking along the subcutaneous soft tissues involving the flandks and anterior abdomen of uncertain etiology 2. Gross dilatation of the ascending colon and transverse colon but no signs a cause of the lesion are stenotic transition point or obstruction 3. Left ureteral stent which is seems to be in good position. However, there is a small collection of air in the non dependent portion of bladder. Unless stent was placed recently, concerning for infection. 4. Large hiatal hernia with much of stomach and omental fat herniated into chest 5. Multiple tiny peripheral cystlike lesions in the liver of uncertain significance. Follow-up liver ultrasound examination may be helpful 6. . There are small bilateral pleural effusions largest is on the right and there is stranding in the lung bases bilaterally 7. There are small lymph nodes in the mediastinum MICROBIOLOGY: Please see below. ASSESSMENT: 65-year-old female with a history of nephrolithiasis with ureteral stents, dyslipidemia and diverticulosis, who was discharged from [facility] on 10/03/20 after being admitted for sepsis secondary to pyelonephritis and underwent left ureterostomy, and subsequently was diagnosed with C. difficile c olitis. Patient was discharged with a ten-day course of Dificid however, was not able to machine operator hop picker the prescription. Patient presented to [facility] on the morning of 10/04/20 complaining of diffuse lower abdominal cramping pain with copious diarrhea. CT in the ED showed large amount of subcutaneous air tracking involving the flanks and anterior abdomen. No free air was seen in the peritoneum or abdomen. Discussed these findings with Dr. Lowry who assured me that these are postoperative and self-limited findings due to laparoscopic surgery. Patient will be started on her ten-day course of Dificid. . PLAN: C diff colitis - completed 2 days of PO vancomycin on prior admission, DC on 10/03/20 with 10 day course of dific, but rx was not picked up (not available in pharmacy) - off of meds x 24 hours - resume course of dificid 200 mg BID PO Ileus - dilation of ascending and transverse colon seen on CT - keep NPO for now - check KUB - if continues to develop worsening pain, consider surgical consult SubQ emphysema - d/w Dr. Lowry, consistent with recent urologic laparoscopic surgery - self limited Hyponatremia: - hypovolemic hyponatermia, in setting of copius diarrhea - start NS 100 cc/hr L ureteral stricture: - s/p ureterostomy POD [address] Lowry - check renal function HLD -continue home statin Dispo: pending clinical improvement Home Medications Scheduled Atorvastatin Calcium (Atorvastatin Calcium) 10 Mg Tablet, 10 MG PO DAILY Fidaxomicin (Dificid) 200 Mg Tablet, 200 MG PO BID STARTED ON 10/04/20 L. Rhamnosus GG/Inulin (Culturelle Capsule) 1 Each Cap.sprink, 1 TAB PO DAILY Multivitamins (Thera M Plus Tablet) 1 Each Tablet, 1 TAB PO DAILY Scheduled PRN Oxycodone HCl/Acetaminophen (Oxycodone-Acetaminophen 5-325) 1 Each Tablet, 1 TAB PO Q4H PRN for MODERATE/SEVERE PAIN (PS 5-10) Phenazopyridine HCl (Azo Urinary Pain Relief) 95 Mg Tablet, 95 MG PO TID PRN for URINARY PAIN Allergies Coded Allergies: No Known Allergies (Unverified , 05/17/20) A-FIB/CHADSVASC A-FIB History Current/History of A-Fib/PAF?: No LAURA GRAHAM MD Oct 05, 2020 02:19
[2020-10-05] MEDS ORDERED: AZO-95TA3 PO (03:51)
[2020-10-05] MEDS ORDERED: DIFI200T PO (03:51)
[2020-10-05] MEDS ORDERED: VITMTA PO (03:51)
[2020-10-05] MEDS ORDERED: OXYC1TAB23 PO (03:51)
[2020-10-05 04:00] VITALS: BP 133/73
[2020-10-05] MEDS: NS 1,000 ML IV SCH ×3 (04:19→23:00)
[2020-10-05] MEDS ORDERED: MORPHINE 2 MG/ML 1ML VIAL (J2270) IV PRN (05:25)
[2020-10-05 06:03] LABS: HEMATOCRIT 28.2 % (36.0-47.0); HEMOGLOBIN 9.1 g/dl (12.0-15.5); MEAN CORPUSCULAR HEMOGLOBIN 25.9 pg (27.0-33.0); MEAN CORPUSCULAR HGB CONC 32.3 g/dl (32.0-36.5); MEAN CORPUSCULAR VOLUME 80.1 fl (80.0-96.0); PLATELET COUNT, AUTOMATED 386 10^3/uL (150-450); RED BLOOD COUNT 3.52 10^6/uL (4.00-5.40); WHITE BLOOD COUNT 8.4 10^3/uL (4.0-10.0)
[2020-10-05] MEDS: FIDAXOMICIN 200 MG TAB (DIFICID) PO SCH ×2 (06:13→20:56)
[2020-10-05] MEDS: HEPARIN SOD (PORCINE) 5000UNITS/ML 1ML VIAL/SYRINGE SC SCH ×3 (06:14→20:56)
[2020-10-05 06:21] LABS: EOSINOPHILS 1 % (0-3); LYMPHOCYTES 16 % (16-44); MONOCYTES 11 % (0-5); NEUTROPHILS 65 % (28-66)
[2020-10-05 06:22] LABS: ANISOCYTOSIS 1+; PLATELET CLUMPS SMALL AMT; POLYCHROMASIA 1+
[2020-10-05 06:23] LABS: PLATELET ESTIMATE NORMAL (NORMAL)
[2020-10-05 06:30] LABS: ALBUMIN 1.7 GM/DL (3.2-5.2); ALT/SGPT 44 U/L (12-78); BILIRUBIN,TOTAL 0.9 MG/DL (0.2-1.0); BLOOD UREA NITROGEN 7 MG/DL (7-18); CALCIUM LEVEL 7.8 MG/DL (8.8-10.2); CARBON DIOXIDE LEVEL 27 MEQ/L (21-32); CHLORIDE LEVEL 97 MEQ/L (98-107); CREATININE FOR GFR 0.63 MG/DL (0.55-1.30); GLOMERULAR FILTRATION RATE > 60.0 (>45); GLUCOSE, FASTING 96 MG/DL (70-100); POTASSIUM SERUM 3.7 MEQ/L (3.5-5.1); SODIUM LEVEL 133 MEQ/L (136-145); TOTAL PROTEIN 5.1 GM/DL (6.4-8.2)
[2020-10-05 08:00] VITALS: BP 139/79
[2020-10-05] MEDS: DOCUSATE SODIUM 100MG CAPSULE PO SCH ×2 (08:00→20:04)
[2020-10-05] MEDS: ATORVASTATIN 10 MG TAB PO SCH (08:01)
[2020-10-05] MEDS: MULTIVITAMINS/MINERALS THERAP 1 TAB PO SCH (08:01)
--- NOTE | 2020-10-05 10:21 | IPNPDOC ---
Date Seen The patient was seen on 10/05/20. Progress Note Per urologist on-call Dr. Lowry patient does not need any surgical intervention diet may be advanced. Patient may be started on full liquid diet advance to 2 g sodium as tolerated VS, I&O, 24H, Fishbone Vital Signs/I&O Vital Signs Date Time Temp Pulse Resp B/P (MAP) Pulse Ox O2 Delivery O2 Flow Rate FiO2 10/05/20 08:00 2.0 10/05/20 08:00 96.9 77 18 139/79 (99) 98 Nasal Cannula I&O- Last 24 Hours up to 6 AM 10/05/20 06:00 Intake Total 175 ml Balance 175 ml Laboratory Data 24H LABS Laboratory Tests 2 10/05/20 05:44: Neutrophils (%) (Auto) , Nucleated Red Blood Cells % (auto) 0.4H, Neutrophils 65, Band Neutrophils 7, Lymphocytes (Manual) 16, Monocytes (Manual) 11H, Eosinophils (Manual) 1, Polychromasia 1+, Anisocytosis 1+, Platelet Estimate NORMAL, Clumped Platelets SMALL AMT, Anion Gap 9, Glomerular Filtration Rate > 60.0, Lactic Acid Level 0.9, Calcium Level 7.8L, Magnesium Level 2.0, Total Bilirubin 0.9, Aspartate Amino Transf (AST/SGOT) 49H, Alanine Aminotransferase (ALT/SGPT) 44, Alkaline Phosphatase 94, Total Protein 5.1L, Albumin 1.7L, Albumin/Globulin Ratio 0.5L CBC/BMP Laboratory Tests 10/05/20 05:44 Microbiology Microbiology 10/05/20 Blood Culture, Received Pending 10/05/20 Blood Culture, Received Pending HOMAR MERLOS MD Oct 05, 2020 10:21
[2020-10-05] MEDS: PERCOCET 5MG/325MG TAB PO PRN ×3 (14:18→23:00)
[2020-10-05 16:00] VITALS: BP 134/69
[2020-10-05] MEDS ORDERED: NYSTATIN 500,000 U/5 ML SUSP UDC SS PRN (19:50)
[2020-10-05 20:00] VITALS: BP 159/84
[2020-10-06 04:00] VITALS: BP 149/76
[2020-10-06] MEDS: HEPARIN SOD (PORCINE) 5000UNITS/ML 1ML VIAL/SYRINGE SC SCH (05:51)
[2020-10-06] MEDS: PERCOCET 5MG/325MG TAB PO PRN ×2 (05:56→09:57)
[2020-10-06 08:00] VITALS: BP 160/78
[2020-10-06] MEDS: NS 1,000 ML IV SCH (08:34)
[2020-10-06 08:57] LABS: HEMATOCRIT 25.9 % (36.0-47.0); HEMOGLOBIN 8.3 g/dl (12.0-15.5); MEAN CORPUSCULAR HEMOGLOBIN 25.5 pg (27.0-33.0); MEAN CORPUSCULAR VOLUME 79.7 fl (80.0-96.0); PLATELET COUNT, AUTOMATED 382 10^3/uL (150-450); RED BLOOD COUNT 3.25 10^6/uL (4.00-5.40); WHITE BLOOD COUNT 7.4 10^3/uL (4.0-10.0)
[2020-10-06] MEDS: DOCUSATE SODIUM 100MG CAPSULE PO SCH (08:58)
[2020-10-06] MEDS: MULTIVITAMINS/MINERALS THERAP 1 TAB PO SCH (09:03)
[2020-10-06] MEDS: ATORVASTATIN 10 MG TAB PO SCH (09:03)
[2020-10-06] MEDS: FIDAXOMICIN 200 MG TAB (DIFICID) PO SCH (09:03)
[2020-10-06 09:14] LABS: BLOOD UREA NITROGEN 7 MG/DL (7-18); CALCIUM LEVEL 7.3 MG/DL (8.8-10.2); CARBON DIOXIDE LEVEL 25 MEQ/L (21-32); CHLORIDE LEVEL 99 MEQ/L (98-107); CREATININE FOR GFR 0.61 MG/DL (0.55-1.30); GLOMERULAR FILTRATION RATE > 60.0 (>45); GLUCOSE, FASTING 143 MG/DL (70-100); POTASSIUM SERUM 3.5 MEQ/L (3.5-5.1); SODIUM LEVEL 132 MEQ/L (136-145)
[2020-10-06 09:40] LABS: ANISOCYTOSIS 1+; EOSINOPHILS 1 % (0-3); HYPOCHROMASIA 2+; LYMPHOCYTES 8 % (16-44); METAMYELOCYTES 2 % (0-0); MONOCYTES 3 % (0-5); NEUTROPHILS 61 % (28-66); PLATELET ESTIMATE NORMAL (NORMAL)
[2020-10-06 09:41] LABS: MICROCYTOSIS 1+
[2020-10-06] MEDS ORDERED: VANC1CAP6 PO (10:38)
--- NOTE | 2020-10-06 11:24 | DSES ---
DISCHARGE SUMMARY DATE OF ADMISSION: 10/05/2020 DATE OF DISCHARGE: 10/06/2020 PRIMARY DISCHARGE DIAGNOSES: 1. Clostridium difficile colitis, present on hospital admission. 2. History of nephrolithiasis with ureteral stents, subcutaneous emphysema, not requiring any surgical intervention, per Urologist, Dr. Lowry. 3. Mild hyponatremia, sodium of 133. 4. Ileus secondary to C-difficile colitis. 5. History of left ureteral strictures status post ureterostomy postop day number nine. 6. Hyperlipidemia. 7. History of diverticulosis. DISCHARGE MEDICATIONS: 1. Dificid 200 mg twice daily for 10 days. 2. Atorvastatin 10 daily. 3. Bacid one tablet daily. 4. Multivitamin one tablet daily. 5. Percocet one tablet every 4 as needed. 6. Phenazopyridine 95 mg three times daily as needed for dysuria. DISCHARGE INSTRUCTIONS: Follow up with primary care physician and Urology within a week of discharge. HOSPITAL COURSE: A 65-year-old female with a history of nephrolithiasis, ureteral stents, who underwent left ureterostomy, status post day eight, presented with diarrhea, diffuse lower quadrant abdominal pain on 10/04 at [facility]. CT in the Emergency Room showed subcutaneous air tracking involving flanks and anterior abdomen but no free air. Dr. Lowry was informed as these were postoperative changes which are self limited in doing a laparoscopic surgery. The patient was given 10 days of Dificid but did not picker and packer her medications as they were not available at the [facility] in [place]. The patient was untreated for C-diff colitis as outpatient and was sent over to [facility] for further evaluation of the subcutaneous emphysema found on the CT of the abdomen. In the E.R. the patient was evaluated by Dr. Lowry, Urologist, who felt that no surgical intervention was required. She was initially kept n.p.o. due to possible laparoscopic surgery. The patient was then advanced to a full liquid diet and was tolerating a regular diet. The patient has had no dehydration, acute kidney injury, metabolic acidosis or electrolyte abnormalities despite having diarrhea. She is resumed on Dificid 200 twice daily. No complaints of fevers, chills, worsening abdominal distention and was tolerating all her meals. The patient is otherwise medically stable for hospital discharge. Jet Handler is to call [facility] in [place] to confirm that the Dificid is available. The patient was instructed to have a family member picker and packer the medication prior to being picked up at the hospital to make sure she does not miss any doses. PHYSICAL EXAMINATION ON DISCHARGE: VITAL SIGNS: Temperature 98.4, pulse 91, respiratory rate 18, blood pressure 149/76, 93% on 2 liters nasal cannula. GENERAL APPEARANCE: Awake, alert, oriented, in no distress. HEENT: No jugular venous distention, thyromegaly. Dry mucous membranes. LUNGS: Clear to auscultation. No wheezing or rales. HEART: S1, S2, sinus rhythm. ABDOMEN: Soft, nontender, nondistended, no CVA tenderness. EXTREMITIES: No cyanosis or clubbing. LABORATORY DATA, IMAGING STUDIES AND DISCHARGE MEDICATIONS: Please see the chart. Time spent on discharge 30 minutes. MTDD
== END 2020-10-06 12:55 | disposition home or self-care (01) | DRG 372 ==
LOC: M PCU 10-05 00:07
PROVIDERS: ADMIT Family Medicine; ATTEND General Practice
DX: A04.71 Enterocolitis due to Clostridium difficile, recurrent (principal); K56.7 Ileus, unspecified; E87.1 Hypo-osmolality and hyponatremia; E78.5 Hyperlipidemia, unspecified; K57.30 Diverticulosis of large intestine without perforation or abscess without bleeding; Z79.899 Other long term (current) drug therapy

== ENCOUNTER → 2020-11-07 | Outpatient (REF) | payer OTHER, MEDICAID, MEDICARE ==
[~2020-11-07] MED LIST changes: +AZO-95TA3 PO; +DIFI200T PO; +VANC1CAP6 PO; +VITMTA PO
[2020-11-07 13:50] LABS: APPEARANCE, URINE HAZY (CLEAR); BACTERIA, URINE AUTO 1+ (NEGATIVE); BILIRUBIN, URINE AUTO NEGATIVE (NEGATIVE); BLOOD, URINE BLOOD NEGATIVE (NEGATIVE); CALCIUM OXALATE CRYSTALS MODERATE; COLOR, URINE YELLOW (YELLOW); GLUCOSE, URINE (UA) AUTO NEGATIVE (NEGATIVE); KETONE, URINE AUTO NEGATIVE (NEGATIVE); LEUKOCYTE ESTERASE, URINE AUTO 3+ (NEGATIVE); NITRITE, URINE AUTO NEGATIVE (NEGATIVE); PROTEIN, URINE AUTO 1+ mg/dL (NEGATIVE); RBC, URINE AUTO 5 /HPF (0-3); SQUAMOUS EPITHELIAL CELL UR AU 0 /HPF (0-6); UROBILINOGEN, URINE AUTO 0.2 mg/dL (0.0-2.0); WBC, URINE AUTO 64 /HPF (0-3)
== END ==
LOC: M SFHCPLAZ 13:05
PROVIDERS: ATTEND Internal Medicine Infectious Disease
DX: N39.0 Urinary tract infection, site not specified (principal)

== ENCOUNTER 2020-12-04 15:52 | Outpatient (CLI) | payer MEDICARE, MEDICAID ==
[~2020-12-04] VITALS: Ht 160 cm; Wt 87.4 kg
[~2020-12-04 15:52] MED LIST changes: +DOK1CAP4 PO; -DOK1CAP7 PO
[2020-12-04 16:00] VITALS: BP_SYST 140; BP_SYST 175; BP_DIAS 89; BP_DIAS 94
[2020-12-04] MEDS ORDERED: BEZLOTOXUMAB 750 MG in NS 100 ML IV ONE (16:30)
[2020-12-04] MEDS ORDERED: DICL50TA2 PO (16:39)
== END 2020-12-04 18:00 | disposition home or self-care (01) ==
LOC: M INFU 15:52
PROVIDERS: ATTEND Internal Medicine Infectious Disease
DX: A04.71 Enterocolitis due to Clostridium difficile, recurrent (principal)
CPT/HCPCS: 96365; J0565